=== PATIENT | female | born 1955 | race Caucasian/White ===

== ENCOUNTER → 2020-12-29 15:31 | Outpatient (BNVA) | payer MEDICARE, SELFPAY | PROVIDERS: Referring Provider Nurse Practitioner Family; Visit Provider Orthopaedic Surgery | DX: M25.562 Pain in left knee (principal); M25.561 Pain in right knee; M17.0 Bilateral primary osteoarthritis of knee | CPT/HCPCS: 73560; 73565 ==

== ENCOUNTER 2021-03-09 14:21 | Outpatient (CLI) | payer MEDICARE, SELFPAY ==
--- NOTE | 2021-03-09 14:28 | MM_ITS ---
WS: [id number] BILATERAL DIGITAL SCREENING MAMMOGRAPHY WITH CAD CLINICAL INFORMATION: SCREENING HISTORY: Screening mammogram. No current complaints. COMPARISON: July 24, 2019 TECHNIQUE: Bilateral CC and MLO views. FINDINGS: Scattered fibroglandular densities bilaterally. Vascular calcification. A few punctate calcifications . No suspicious focal mass, asymmetry, calcifications, or architectural distortion. No evidence of ma lignancy. MM/[place] [id number] IMPRESSION: BI-RADS: 2-Benign FOLLOW UP: 1 Year Follow-up Recommend return to annual screening mammography.
== END 2021-03-09 14:22 | disposition home or self-care (01) ==
LOC: RADSHAW 14:26
PROVIDERS: PCP Nurse Practitioner Family; Visit Provider Nurse Practitioner Family
DX: Z12.31 Encounter for screening mammogram for malignant neoplasm of breast (principal)
CPT/HCPCS: 77067

== ENCOUNTER → 2021-03-29 12:18 | Day surgery (SDC) | payer MEDICARE, SELFPAY | PROVIDERS: PCP Nurse Practitioner Family; Visit Provider Orthopaedic Surgery | DX: Z01.818 Encounter for other preprocedural examination (principal); M17.0 Bilateral primary osteoarthritis of knee | CPT/HCPCS: 93005 ==

== ENCOUNTER → 2021-03-31 14:23 | Outpatient (BNVA) | payer MEDICARE, SELFPAY | PROVIDERS: PCP Nurse Practitioner Family; Visit Provider Orthopaedic Surgery | DX: Z20.822 Contact with and (suspected) exposure to COVID-19 (principal); M17.12 Unilateral primary osteoarthritis, left knee | CPT/HCPCS: 87635 ==

== ENCOUNTER 2021-04-05 09:02 | Observation (INO) | payer MEDICARE, MEDICAID, SELFPAY ==
--- NOTE | 2021-03-29 12:18 | ECG_ITS ---
[facility] Test Date: 2021-03-29 Pat Name: Sammy Sherwood Department: Room: Gender: Female Morgue Attendant: : 1955 Requested By: Key Love Order Number: [id number] Juan MD: Evelyn Tenorio M.D. Measurements Intervals [place] Rate: 88 P: 66 IA: 164 QRS: -56 QRSD: 141 T: 99 QT: 400 QTc: 485 Interpretive Statements SINUS RHYTHM LEFT ATRIAL ENLARGEMENT [-0.15mV P-WAVE IN V1/V2] LEFT AXIS DEVIATION [QRS AXIS < -30] LEFT BUNDLE BRANCH BLOCK [120+ ms QRS DURATION, 80+ ms Q/S IN V1/V2, 85+ ms R IN I/aVL/V5/V6] Compared to ECG 05/03/2019 14:24:40 Left-axis deviation now present Sinus tachycardia no longer present Indeterminate axis no longer present Electronically Signed On 03-30-2021 0:08:43 CDT by Evelyn Tenoroi M.D. [id number]
--- NOTE | 2021-03-29 13:19 | ANES.PREANE2 ---
Pre-Anesthetic Assessment Pre-Anesthetic Assessment: Height/Weight: Height 1.47 m Weight 72.575 kg Preop Diagnosis: Osteoarthritis left knee Proposed Procedure: Operation Date: 04/05/21 07:00 Proposed Procedures p Left Total Knee Arthroplasty 54535 M17.0(Left) - Serge Bettencourt MD Familial anesthetic complications: none Social: Social History: No alcohol and No tobacco Exam: Pre-Anes Outpt Exam: alert, oriented x 3, clear to auscultation bilaterally and regular rate & rhythm Airway: Cervical ROM: WNL MP: 2 Dentition: Other (missing) Hepatic: Comments: fatty liver GI: GI: GERD Metabolic: Metabolic: Hyperlipidemia Anesthetic Plan: ASA status: 2 Anesthesia: MAC and Regional (specify below) Other: spinal Risk of > 500 ml blood loss (7ml/kg in children): No PFSH Anesthesia PFSH: Social History Smoking and tobacco status: never smoked Alcohol intake: never Data Anesthesia Cardiac Studies: No Data to Display
[2021-03-29 14:03] LABS: Basophils % 0.6 %; Eosinophils # 0.2 10^3/uL (0.0-0.8); Eosinophils % 2.2 %; Hematocrit 43.8 % (37.0-47.0); Hemoglobin 14.1 g/dL (11.5-15.3); Lymphocytes # 2.6 10^3/uL (0.8-4.8); Mean Corpuscular HGB Conc 32.2 g/dL (30.0-36.0); Mean Corpuscular Hemoglobin 29.7 pg (28.0-34.0); Mean Corpuscular Volume 92.2 fl (81-99); Mean Platelet Volume 10.2 fL (7.4-10.4); Monocytes % 13.2 %; Neutrophils # 3.46 10^3/uL (1.8-7.7); Neutrophils % 47.9 %; Nucleated Red Blood Cells % 0 %; Platelet Count 218 10^3/cmm (130-400); Red Blood Count 4.75 10^6/uL (4.1-5.3); Red Cell Distribution Width 13.4 % (12.1-15.1); White Blood Count 7.2 10^3/uL (4.0-10.0)
[2021-03-29 14:20] LABS: Alanine Aminotransferase 25 U/L (0-33); Albumin Level 4.1 g/dL (3.5-5.2); Alkaline Phosphatase 72 IU/L (35-105); Anion Gap 12.9 (5-19); Aspartate Amino Transferase 25 U/L (0-32); Blood Urea Nitrogen 15 mg/dL (8-23); Carbon Dioxide 24 mmol/L (22-29); Chloride 106 mmol/L (98-107); Creatinine Clr Calc Pharmacy 79.2529; Globulin 3.1 g/dL (1.3-4.6); Glomerular Filtration Rate 123.4 mL/min (90-130); Glucose 96 mg/dL (65-115); Osmolality Calculated 289 mOsm/kg (285-295); Potassium 3.9 mmol/L (3.5-5.1); Sodium 139 mmol/L (136-145); Total Bilirubin 0.2 mg/dL (0.15-1.2); Total Protein 7.2 g/dL (6.6-8.7)
[2021-04-05] VITALS (19 sets, daily range): BP systolic 97–131; BP diastolic 54–81; PULSE 80–101; RESP 14–22; TEMP 35.8–36.7; O2SAT 95–99; BMI 36.2
[2021-04-05] MEDS: CELEcoxib 200 mg Capsule 400 MG PO (06:08)
[2021-04-05] MEDS: oxyCODONE 20 mg ER (12 HR) Tablet PO (06:09)
[2021-04-05] MEDS: gabapentin 300 mg Capsule PO ×2 (06:09→18:15)
[2021-04-05] MEDS: acetaminophen 500 mg Tablet 1000 MG PO ×3 (06:09→22:33)
[2021-04-05] MEDS: sodium chloride 0.9% 1,000 ML 30 ML IV (06:10)
--- NOTE | 2021-04-05 06:52 | P.ANESUD_ITS ---
Pre-Anesthetic Update Pre-Anesthetic Assessment: Date of Surgery/Procedure: 04/05/21 Preop Monica gnosis: Osteoarthritis left knee Proposed Procedure: Operation Date: 04/05/21 07:00 Proposed Procedures p Left Total Knee Arthroplasty 88948 M17.0(Left) - Serge Bettencourt MD Any changes to Pre-Anesthetic Assessment?: No Last Intake: Intake Last Liquid Date 04/04/21 Last Liquid Time 22:00 Last Solid Date 04/04/21 Last Solid Time 19:00 Vitals: Temperature 97.2 F L 04/05/21 05:54 Temperature Source Temporal Artery S can 04/05/21 05:54 Pulse Rate 101 H 04/05/21 05:54 Respiratory Rate 16 04/05/21 06:09 Respiratory Effort 04/05/21 06:09 Respiratory Depth Normal 04/05/21 06:09 Respiratory Patter n 04/05/21 06:09 Blood Pressure 117/75 04/05/21 05:54 Blood Pressure Monika n 89 04/05/21 05:54 Pulse Oximetry 97 04/05/21 06:09 Oxygen Delivery Me thod 04/05/21 05:54 Exam: Pre-Anes Outpt Exam: alert, oriented x 3, clear to auscultation bilaterally and regular rate & rhythm Other Pertinent Information: Other Pertinent Information: SAB and adductor blk Cardiac Studies: No Data to Display
--- NOTE | 2021-04-05 07:04 | P.HP_ITS ---
Same Day Surgery H&P Indication for Procedure/HPI DATE OF PROCEDURE: April 05, 2021 CHIEF COMPLAINT/INDICATIONFOR SURGICAL PROCEDURE: Left knee pain secondary to osteoarthritis. Here for total knee arthroplasty PREOP DIAGNOSIS: Osteoarthritis left knee PLANNED PROCEDRUE: Operation Date: 04/05/21 07:00 Proposed Procedures p Left Total Knee Arthroplasty 67355 M17.0(Left) - Serge Bettencourt MD Medications/Allergies* Home Medications Medication Instructions Recorded Confirmed Type lutein 20 mg capsule 20 mg PO DAILY 12/29/20 04/05/21 History omeprazole 20 mg capsule,delayed 20 mg PO DAILY 12/29/20 04/05/21 History release rosuvastatin 10 mg tablet 10 mg PO DAILY 12/29/20 04/05/21 History gabapentin 100 mg PO DAILY 03/29/21 04/05/21 History Allergies/Adverse Reactions Allergy/AdvReac Type Severity Reaction Status Date / Time No Known Allergies Allergy Verified 03/29/21 12:30 Current Medications: Generic Name Dose Route Start Last Admin Trade Name Freq PRN Reason Stop Dose Admin Sodium Chloride 1,000 mls @ 30 mls/hr 04/05/21 05:45 04/05/21 06:10 Sodium Chloride 0.9% IV 04/06/21 05:44 30 mls/hr .Q24H ASUNCION Administration Pertinent History/Comorbid Conditions* Social History Smoking and tobacco status: never smoked Alcohol intake: never Pertinent Exam Findings alert, oriented x 3, clear to auscultation bilaterally and regular rate & rhythm Recommendations Surgery/Procedure today Coding Level of Care Code Acute 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
--- NOTE | 2021-04-05 07:31 | ANES.PROC ---
Anesthesia Procedures Procedure/Date: 04/05/21 Nerve Block ^: Nerve Block 1: Main Anesthesia: spinal anesthesia block Time Out Performed: Yes Consent: requested by attending/covering physician, from patient, risks and benefits reviewed and patient agrees to proceed Nerve block location: adductor canal (left) Anesthesia monitors applied: pulse oximetry, EKG, BP cuff and oxygen Nerve block position: supine Anesthetic Used: ropivicaine 0.5% Amount of anesthesia used (mL): 20 Ultrasound used to: recognize landmarks Nerve Stimulator Used?: No Interscalene/Femoral BLK: 4 stimuplex 21 g needle used for position and inplane approach and visualize local anesthetic spread Injection: neg aspiration of heme Patient Tolerated Procedure: well Complications: none
[2021-04-05] MEDS: EPINEPHrine 1 mg/mL INJ XX (07:56)
[2021-04-05] MEDS: ketorolac 30 mg/mL INJ IM (07:56)
[2021-04-05] MEDS: tranexamic acid 1,000 mg/10mL SDV 1000 MG IRRIGATION (07:57)
--- NOTE | 2021-04-05 09:05 | PM.OP ---
Operative Report Date of procedure: April 05, 2021 Pre-op Diagnosis: Osteoarthritis left knee Post-op diagnosis: same Post-op Findings: Severe degenerative changes left knee Procedure Done: Left total knee arthroplasty Pathology: none sent Surgeon: Serge Bettencourt Anesthesia: Nerve Block (Spinal, adductor canal block) Estimated blood loss (mL): 75 Complications: None Findings: The patient had severe eburnated bone over the medial femoral condyle, medial tibial plateau, patella and throat Condition: stable Disposition: PACU Procedure: The patient was taken to the operating room. Patient was given 1 g of tranexamic acid . The above anesthesia provided by the anesthesia service. A timeout was performed. The patient was prepped and draped in the usual fashion with the lower extremity exposed. A anterior incision was made, midline, from a point proximal to the patella to the distal tibial tubercle. The knee was entered through a medial parapatellar approach. The patella could be displaced laterally and the knee flexed. The patellar fat pad was resected to provide better visibility. Retractors were placed medially and laterally adjacent to the tibial plateau. The femoral canal was drilled in line with the longitudinal axis of the femur. Intramedullary femoral guide for used to make a distal femoral cut in 5 degrees of valgus, resecting 8 mm from the more prominent condyle. Next the extra medullary tibial guide was placed in alignment with the longitudinal axis of the tibia. The cutting guides were set to remove just over 9 mm from the high tibial plateau. The proximal tibia was then cut. The femoral measuring guide was then placed over the distal femur. Rotation was verified checking the relationship of the guide to the condyle and the trochlear groove. The femur was measured and cut for the desired femoral component. The desired tibial baseplate was then chosen. A trial reduction with the femur tibial baseplate and polyethylene was done, assuring that the knee was stable throughout full motion. Ligament balancing involved in release.The tibia was prepared for the tibial baseplate. Patellar thickness was then measured. The patella was cut removing articular cartilage and prepared for appropriate size patellar button. surfaces were cleaned with a gentamicin/tranexamic acid solution. The femur tibia and patella were then press-fit into place. The posterior capsule and collateral ligaments were then injected with a solution of 100 mL of 0.2% ropivacaine, 1 mL of a 1:1000 epinephrine solution, 30 mg of Toradol and 1 g TXA solution. Final polyethylene component was then snapped into place into the tibia. The tourniquet was deflated. The extensor retinaculum was closed with a running 1 Stratafix.. The subcutaneous tissues were closed with 2-0 Vicryl and the skin was closed with a running 3-0 Stratafix. The wound was covered with a Dermabond Prinio dressing. It was covered with 4xrs and a compressive Tubigauae was applied. The patient was taken to recovery room in stable condition. [place] total knee arthroplasty components were used includin) Size 3 triathalon cruciate retaining femoral component 2) Size 3 Tritanium tibial component 3) 29 mm /9 mm thickness Tritanium asymetric patella 4) Size 3/13 mm thickness CR tibial bearing insert
--- NOTE | 2021-04-05 09:11 | XR_ITS ---
WS: [id number] Exam: XR knee LT 1-2V [id number] Date/Time of Exam: 04/05/2021 9:11 AM Reason For Exam: Left Total knee arthroplasty A total knee prosthesis has been placed and appears to be in satisfactory alignment. Postoperative ch anges in the adjacent soft tissues. An implant is seen along the articulating surface of the patella. XR/XR knee LT 1-2V [id number] IMPRESSION: 1. Total joint replacement appearing to be in satisfactory position.
[2021-04-05] MEDS: metoclopramide 5 mg/mL SDV 2 mL 10 MG IV (11:11)
[2021-04-05] MEDS: sodium chloride 0.9% 1,000 ML 100 ML IV ×2 (11:22→22:36)
[2021-04-05] MEDS: ondansetron 2 mg/ML SDV 2 mL 4 MG IVP (14:47)
[2021-04-05] MEDS: oxyCODONE 5 mg IR Tab/Cap PO (14:48)
--- NOTE | 2021-04-05 15:36 | ANE.PACU2 ---
Inpatient post-anesthesia follow up: Airway intact: Yes Vital signs: Temperature 97.3 F Pulse Rate 85 Respiratory Rate 17 Blood Pressure 130/79 Pulse Oximetry 96 Oxygen Delivery Me thod Room Air Oxygen Flow Rate Fraction of Inspir ed Oxygen Hydration adequate: Yes Nausea and vomiting: No Pain level: 2 Mental status: Baseline
[2021-04-05] MEDS: sennosides-docusate Tablet 2 TAB PO (18:15)
[2021-04-05] MEDS: CELEcoxib 200 mg Capsule PO (18:16)
[2021-04-05] MEDS: metoclopramide 5 mg/mL SDV 2 mL 10 MG IVP (19:08)
[2021-04-06] VITALS (7 sets, daily range): BP systolic 112–135; BP diastolic 67–82; PULSE 102–105; RESP 16–18; TEMP 36.7–36.8; O2SAT 93–99
[2021-04-06] MEDS: oxyCODONE 5 mg IR Tab/Cap PO ×3 (01:52→17:36)
[2021-04-06] MEDS: acetaminophen 500 mg Tablet 1000 MG PO ×2 (05:52→13:17)
[2021-04-06] MEDS: CELEcoxib 200 mg Capsule PO ×2 (05:54→17:37)
--- NOTE | 2021-04-06 08:15 | PM.PN ---
Subjective Subjective: Interval history: Complaineds of shortness of breath last night, relieved with oxycodone. Complains of increased shortness of breath this morning. Vomiting last night Vitals/I&O/Wt Last Vital Signs Temp 98.1 F 04/06/21 04:10 Pulse 105 H 04/06/21 04:10 Resp 18 04/06/21 06:20 BP 112/67 04/06/21 04:10 Pulse Ox 93 04/06/21 04:10 04/05/21 04/06/21 04/06/21 22:59 06:59 14:59 Intake Total 1540 / 2950 360 / 3310 Output Total 300 / 400 350 / 750 Balance 1240 / 2550 10 / 2560 Weight last 48 hrs Weight 179 lb 8 oz Physical Exam Narrative: EXAM NARRATIVE: Left knee dressing clean and dry Data : 03/29/21 13:46 03/29/21 13:46 A&P Assessment and plan (1) Osteoarthritis of left knee: Status: Acute (2) Status post left knee replacement: Continue to mobilize with therapy. Status: Acute (3) Hypoxia: Will obtain portable chest x-ray. Suspect atelectasis. 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
[2021-04-06 08:18] LABS: Hemoglobin 11.1 g/dL (11.5-15.3)
--- NOTE | 2021-04-06 08:18 | XR_ITS ---
WS: [id number] Exam: XR chest 1V portable [id number] Date/Time of Exam: 04/06/2021 8:27 AM Reason For Exam: Shortness of breath Comparison 05/03/2019. The heart is enlarged. The lungs are fully expanded and clear. No pleural effusions. Regional bony el ements are intact. XR/XR chest 1V portable [id number] IMPRESSION: 1. Cardiac enlargement. 2. No acute process noted.
--- NOTE | 2021-04-06 09:07 | PC.CHAP ---
Pastoral Care Encounter/Spiritual Assessment Type of Contact [] Declined behavioral health specialist visit [] Patient/Family/Request visit [] Outpatient visit [] Follow-up visit [] Physician referral [] Code/Alert [x] Routine visit [] Staff referral [] Actively dying [] Patient sleeping [] Family support [] [] Out of room [] Palliative care [] [] Receiving care in room [] Pre-surgical visit [] Trauma [] Long length of stay [] ICU visit [] Other: Relational/Emotional Strength [x] Patient feels connected with others/family/visitors/staff [] Distress [] Loneliness/isolation [] Abandonment Spirituality of Patient [x] Person of Nathaly [] Attends Judaism of their Nathaly [] Believes in Prayer [] Reads Bible or Gnosticist materials [] There are Spiritual issues to be addressed Interpretive Program Coordinator Interventions [x] Prayer [x] Active listening [x] Non-anxious presence [] Spiritual/emotional support [] Crisis/trauma care [] Spiritual counseling [] Bereavement support [] Provided bereavement packet [] Provided Bible/devotional materials [] Provided toy/stuffed animal, coloring book to patient or family member [] Provided Communion [] Anointing/[place] [] Salvation [x] Completed spiritual assessment [] Other: Impact on Illness or Injury [] Angry [] Fearful [] Anxious [] Often cries [] Exhaustion [] Unable to work [] Unable to attend sikhism [] Unable to walk/stand [] Unable to read [] Unable to drive [] Unable to eat/drink [] Unable to sleep [] Unable to be with family [] Patient intubated [] Other: Summary Time spent with patient 15 min
[2021-04-06] MEDS: sennosides-docusate Tablet 2 TAB PO ×2 (09:23→17:36)
[2021-04-06] MEDS: aspirin 325 mg EC Tablet PO (09:23)
[2021-04-06] MEDS: atorvastatin 40 mg Tablet PO (09:24)
[2021-04-06] MEDS: gabapentin 300 mg Capsule PO ×2 (09:24→17:37)
[2021-04-06] MEDS: pantoprazole DR 40 mg Tablet PO (09:24)
[2021-04-06] MEDS: LORazepam 0.5 mg Tablet PO (17:36)
--- NOTE | 2021-04-07 14:03 | PM.DCS ---
Discharge Providers Date of Admission: 04/05/21 09:02 Date of Discharge: April 06, 2021 Attending Provider at Admission: Serge Bettencourt MD Attending Provider at Discharge: Serge Bettencourt MD Primary Care Provider: ESTHER Blakely Diagnoses at Discharge Discharge Diagnosis (1) Osteoarthritis of left knee: Status: Resolved (2) Status post left knee replacement: Status: Acute (3) Hypoxia: Status: Resolved Reason for Visit Reason for Visit: Left Total Knee Arthroplasty Hospital Course Hospital Course The patient tolerated surgery well. They remained hemodynamically stable. They was begun on aspirin and sequential compression dressing for DVT prophylaxis. The patient was mobilized with therapy beginning the day of surgery and by the first postoperative day independent with the walker. As the pain was adequately controlled and they were fully mobile they were discharged home. She had one episode of anxiety with subjective complaints of hypoxia. A chest x-ray was unremarkable and her symptoms improved. Physical Exam Narrative: EXAM NARRATIVE: On the day of discharge his knee incision was clean. They had no drainage. There is minimal swelling in the thigh and knee and the calf. No distal neurovascular deficits were noted Discharge Data Data Completed and Pending: Completed Studies During Hospitalization Category Date Time Status XR chest 1V mariella ble [id number] Routine Exams 04/06/21 08:18 Completed XR knee LT 1-2V 7 3560 Routine Exams 04/05/21 09:11 Completed Vitals: Last Vital Signs Temp 98.1 F 04/06/21 12:00 Pulse 103 H 04/06/21 12:00 Resp 18 04/06/21 18:04 BP 115/73 04/06/21 12:00 Pulse Ox 99 04/06/21 12:00 Discharge Plan Discharge Patient Disposition: Home Condition: Stable Prescriptions: New lorazepam 0.5 mg Tablet 0.5 mg PO Q4H PRN (Reason: Anxiety) 7 Days Qty: 10 RF: 0 aspirin 325 mg Tablet,Delayed Release (Dr/Ec) 325 mg PO DAILY 3 Days RF: 0 gabapentin 300 mg Capsule 300 mg PO BID 7 Days Qty: 14 RF: 0 oxycodone 5 mg Tablet 5 mg PO Q4H PRN (Reason: Moderate Pain) 7 Days Qty: 40 RF: 0 Continued lutein 20 mg capsule 20 mg PO DAILY RF: 0 omeprazole 20 mg capsule,delayed release(DR/EC) 20 mg PO DAILY RF: 0 rosuvastatin 10 mg tablet 10 mg PO DAILY RF: 0 Discontinued gabapentin 100 mg capsule 100 mg PO DAILY RF: 0 Discharge Orders: Discharge Order (Routine); Ordered 04/06/21 Ordered By: Serge Bettencourt Other Ambulatory Orders: DME: [employer] (Order) Location: None Selected Ordered By: Serge Bettencourt Referrals: Serge Bettencourt MD [Physician] - 04/20/21 8:15 am Discharge Diet: Advance as tolerated Discharge Activity: Limit activity as instructed Patient Instructions: Lorazepam (By mouth), Aspirin (By mouth), Gabapentin (By mouth), Celecoxib (By mouth), Oxycodone, Slow Release (By mouth), Opioid Safety Activity Restrictions/Additional Instructions: Okay to shower Keep Tubigauze sleeve in place for swelling. Okay to remove for hygiene. Apply FirstIce up to 20 min/hr for pain and swelling Take Celebrex twice a day for the next 15 days for pain , discontinue other anti-inflammatories Take Neurontin twice a day for 7 days. Take Tylenol 500mg (1-2 tabs) as needed 3 times a day for mild pain take oxycodone for breakthrough pain. Exercises per physical therapy. May weight-bear as tolerated on total knee arthroplasty Discharge Attestations Time Spent in Discharge Care*: other Quality Metrics Clinical Quality Measures During this hospital stay, did patient experience: None Coding Level of Care Code Acute [facility] FW [place] note Diagnoses Osteoarthritis of left knee M17.12 Status post left knee replacement Z96.652 Hypoxia R09.02
== END 2021-04-06 18:04 | disposition home or self-care (01) ==
LOC: MEDSURG 09:03
PROVIDERS: Admitting Provider Orthopaedic Surgery; PCP Nurse Practitioner Family; Visit Provider Orthopaedic Surgery
PROC: (CPT 27447; principal; 2021-04-05 07:00)
DX: M17.12 Unilateral primary osteoarthritis, left knee (principal); R09.02 Hypoxemia; K21.9 Gastro-esophageal reflux disease without esophagitis; E78.5 Hyperlipidemia, unspecified
CPT/HCPCS: 27447; 36415; 64447; 71045; 73560; 76942; 80053; 85018; 85025; 97110; 97116; 97161; 97165; 97530; C1776; G0378; J0171; J0690; J1580; J1885; J2370; J2405; J2704; J2765; J2795; J7030

== ENCOUNTER 2021-04-22 15:21 | Outpatient (CLI) | payer MEDICARE, SELFPAY ==
--- NOTE | 2021-04-22 15:33 | XR_ITS ---
WS: [id number] DEXA (DUAL ENERGY X-RAY ABSORPTIOMETRY) Bone mineral density was performed using a Anexon machine. HISTORY: POSTMENOPAUSAL COMPARISON: None available. Lumbar spine BMD (L1-L4): 0.875 g/cm2 T score: -2.5 Z score: -1.3 Total hip BMD: Left: 0.754 g/cm2. T score: -2.0 Z score: -1.0 Right: 0.904 g/cm2. T score: -0.8 Z score: 0.2 10 year probability of a major osteoporotic fracture is 14%. XR/XR DEXA axial skeleton* 12960 IMPRESSION: OSTEOPOROSIS based upon the WHO classification for females.
== END 2021-04-22 15:22 | disposition home or self-care (01) ==
PROVIDERS: PCP Nurse Practitioner Family; Visit Provider Nurse Practitioner Family
DX: Z78.0 Asymptomatic menopausal state (principal); M81.0 Age-related osteoporosis without current pathological fracture
CPT/HCPCS: 77080

== ENCOUNTER 2021-04-28 06:00 | Outpatient (RCR) | payer MEDICARE, SELFPAY | END 2021-05-13 23:59 | disposition home or self-care (01) | LOC: SPT 06:00 | PROVIDERS: PCP Nurse Practitioner Family; Referring Provider Orthopaedic Surgery; Visit Provider Orthopaedic Surgery | DX: Z47.1 Aftercare following joint replacement surgery (principal); Z96.652 Presence of left artificial knee joint | CPT/HCPCS: 97110; 97161 ==

== ENCOUNTER 2021-05-14 06:00 | Outpatient (RCR) | payer MEDICARE, SELFPAY | END 2021-06-13 23:59 | disposition home or self-care (01) | LOC: SPT 06:00 | PROVIDERS: PCP Nurse Practitioner Family; Referring Provider Orthopaedic Surgery; Visit Provider Orthopaedic Surgery | DX: Z47.1 Aftercare following joint replacement surgery (principal); Z96.652 Presence of left artificial knee joint | CPT/HCPCS: 97110 ==

== ENCOUNTER → 2021-05-18 10:24 | Outpatient (BNVA) | payer MEDICARE, MEDICAID, SELFPAY | PROVIDERS: PCP Nurse Practitioner Family; Visit Provider Orthopaedic Surgery | DX: Z96.652 Presence of left artificial knee joint (principal) | CPT/HCPCS: 73560; 73565 ==

== ENCOUNTER 2021-06-04 19:06 | Inpatient (IN) | payer MEDICARE, MEDICAID, SELFPAY ==
[2021-06-04] VITALS (48 sets, daily range): BP systolic 78–119; BP diastolic 49–71; PULSE 107–120; RESP 14–28; TEMP 36.6; O2SAT 92–98; BMI 33.7; BMI 34.4
--- NOTE | 2021-06-04 19:33 | CTR_ITS ---
PROCEDURE INFORMATION: Exam: CT Abdomen And Pelvis With Contrast Exam date and time: 06/04/2021 7:33 PM Age: 65 years old Clinical indication: Nausea and vomiting; Abdominal pain; Generalized; Prior surgery; Surgery type: Hernia. Gb. ; Patient HX: Abd pain with n/v. ; Additional info: Abd pain, n/v TECHNIQUE: Imaging protocol: Computed tomography of the abdomen and pelvis with contrast. Radiation optimization: All CT scans at this facility use at least one of these dose optimization techniques: automated exposure control; mA and/or kV adjustment per patient size (includes targeted exams where dose is matched to clinical indication); or iterative reconstruction. Contrast material: VISI 320; Contrast volume: 95 ml; Contrast route: INTRAVENOUS (IV); COMPARISON: CT abdomen pelvis wo con [id number] 05/03/2019 12:01 PM RADIATION DOSE METRICS: Total DLP (mGy-cm): 1622.78 FINDINGS: Lungs: Right lower lobe 5.3 mm pulmonary nodule partially visualized, dedicated nonemergent chest CT advised for further evaluation. Heart: Cardiomegaly. Liver: Hepatic steatosis. Gallbladder and bile ducts: Cholecystectomy. Pancreas: Normal. No ductal dilation. Spleen: Normal. No splenomegaly. Adrenal glands: Normal. No mass. Kidneys and ureters: Normal. No hydronephrosis. Stomach and bowel: Prominent fluid throughout the small bowel and colon suggestive of an enterocolitis. Diverticulosis without diverticulitis. Appendix: No evidence of appendicitis. Intraperitoneal space: Unremarkable. No free air. No significant fluid collection. Vasculature: Unremarkable. No abdominal aortic aneurysm. Lymph nodes: Unremarkable. No enlarged lymph nodes. Urinary bladder: Unremarkable as visualized. Reproductive: Unremarkable as visualized. Bones/joints: Unremarkable. No acute fracture. Soft tissues: Unremarkable. CT/CT abdomen pelvis w con* [id number] IMPRESSION: 1. Prominent fluid throughout the small bowel and colon suggestive of an enterocolitis. 2. Right lower lobe 5.3 mm pulmonary nodule partially visualized, dedicated nonemergent chest CT advised for further evaluation. 3. Cardiomegaly. 4. Hepatic steatosis. 5. Cholecystectomy. 6. Diverticulosis without diverticulitis. Radiation Dose CTDIVOL = (mGy): DLP = 1622.78 (mGy-cm)
[2021-06-04] MEDS: metoclopramide 5 mg/mL SDV 2 mL 10 MG IVP (19:43)
[2021-06-04 19:45] LABS: Basophils % 0.3 %; Hematocrit 47.1 % (37.0-47.0); Hemoglobin 14.3 g/dL (11.5-15.3); Lymphocytes # 0.3 10^3/uL (0.8-4.8); Lymphocytes % 2.7 %; Mean Corpuscular HGB Conc 30.4 g/dL (30.0-36.0); Mean Corpuscular Hemoglobin 28.6 pg (28.0-34.0); Mean Corpuscular Volume 94.2 fl (81-99); Mean Platelet Volume 10.2 fL (7.4-10.4); Monocytes # 0.5 10^3/uL (0.2-0.9); Monocytes % 4.6 %; Neutrophils # 10.82 10^3/uL (1.8-7.7); Neutrophils % 92.2 %; Nucleated Red Blood Cells % 0 %; Platelet Count 255 10^3/cmm (130-400); Red Cell Distribution Width 13.8 % (12.1-15.1); White Blood Count 11.7 10^3/uL (4.0-10.0)
--- NOTE | 2021-06-04 19:55 | ED_ITS ---
HPI - Nausea/Vomiting/Diarrhea General: Chief complaint: Nausea/Vomiting/Diarrhea Stated complaint: LETHARGIC/ WEAK/ N/V Time Seen by Provider: 06/04/21 19:20 History of Present Illness: HPI Narrative: 65-year-old female who has had nausea vomiting and diarrhea since last night. Multiple episodes of vomiting today, around 10. Multiple episodes of diarrhea as well. She states it is watery. No blood. No fever. Normal belly pain. She has had a cholecystectomy in the past as well as a ventral hernia repair with mesh years ago. She notes that her granddaughter was sick a few days ago with vomiting. MD elicited complaint: nausea, vomiting and diarrhea Pertinent past history: other Onset (ago): hour(s) Description of vomiting: watery and bilious Description of diarrhea: watery Location of pain: Diffuse (Mild) Pain consistency: other Severity: mild Quality: cramping Exacerbating factors: eating Relieving factors: none Context: sick contacts Associated symtoms: Reports fecal incontinence, anorexia and weakness (Generalized); Denies chest pain, cough, diaphoresis, dysuria, fevers/chills, headache(s) or short of breath Review of Systems Const: Denies: diaphoresis ENMT: Denies: throat pain Card: Denies: chest pain Resp: Denies: dyspnea or productive cough GI: Reports: fecal incontinence : Denies: dysuria Neuro: Denies: headache(s) PFSH ED PFSH: Social History Alcohol intake: never Physical Exam Const: GENERAL APPEARANCE: cooperative, ill appearing and frail appearing ORIENTATION/CONSCIOUSNESS: Yes awake, Yes oriented to person, Yes oriented to place and Yes oriented to time HENMT: COMMON NORMALS: normocephalic HEAD & SCALP: normocephalic Eye: COMMON NORMALS: Equal, round and reactive pupils present and EOMs intact bilaterally PUPIL: Yes Equal, round and reactive pupils present Chest: COMMONS NORMALS: normal inspection of the chest Resp: COMMON NORMALS: normal respiratory effort, No use of accessory muscles and clear to auscultation bilaterally AUSCULTATION: clear to auscultation bilaterally Cardio: COMMON NORMALS: regular rhythm RATE: tachycardic RHYTHM: regular rhythm GI: COMMON NORMALS: Normal to inspection, nondistended, normoactive bowel sounds present and Soft to palpation PALPATION: Yes Soft to palpation and Yes Tenderness to palpation present (GI) (Mild diffuse) Neuro: SENSORIUM/ORIENTATION: Yes oriented to person, Yes oriented to place and Yes oriented to time Course Consultations: Consultation #1: Lidia Time: 22:44 Vital Signs: Vital signs: Vital Signs Temperature 97.9 F 06/04/21 23:14 Pulse Rate 109 H 06/04/21 23:14 Respiratory Rate 20 H 06/04/21 23:14 Blood Pressure 117/55 06/04/21 23:14 Pulse Oximetry 94 06/04/21 23:14 MDM - Nausea/Vomiting/Diarrhea MDM Narrative: Medical decision making narrative: 65yo frail female presenting with vomiting diarrhea and dehydration. She is weak, hypotensive, and significantly tachycardic. She had a bump in her creatinine. Her white blood cell count is 11.7. CT shows an enteritis her bicarbonate level is down to 18. She remains tachycardic despite 2.5 L of fluid infusion here in the ER. She will be observed Lab Data: Labs: Lab Results 06/04/21 06/04/21 06/04/21 19:30 19:30 19:30 WBC 11.7 10^3/uL H 10 ^3/uL (4.0-10.0) RBC 5.00 10^6/uL 10^6 /uL (4.1-5.3) Hgb 14.3 g/dL g/dL (11.5-15.3) Hct 47.1 % H % (37.0-47.0) MCV 94.2 fl fl (81-99) MCH 28.6 pg pg (28.0-34.0) MCHC 30.4 g/dL g/dL (30.0-36.0) RDW 13.8 % % (12.1-15.1) Plt Count 255 10^3/cmm 10^3 /cmm (130-400) MPV 10.2 fL fL (7.4-10.4) Neut % (Auto) 92.2 % % Lymph % (Auto) 2.7 % % [place] % (Auto) 4.6 % % Eos % (Auto) 0.0 % % Baso % (Auto) 0.3 % % Neut # (Auto) 10.82 10^3/uL H 1 0^3/uL (1.8-7.7) Lymph # (Auto) 0.3 10^3/uL L 10^ 3/uL (0.8-4.8) [place] # (Auto) 0.5 10^3/uL 10^3/ uL (0.2-0.9) Eos # (Auto) 0.0 10^3/uL 10^3/ uL (0.0-0.8) Baso # (Auto) 0.0 10^3/uL 10^3/ uL (0.0-0.1) Nucleated RBC % (a uto) 0 % % Nucleated RBCs # 0.0 /100WBC /100W BC Sodium 139 mmol/L mmol/L (136-145) Potassium 4.6 mmol/L mmol/L (3.5-5.1) Chloride 105 mmol/L mmol/L (98-107) Carbon Dioxide 18 mmol/L L mmol/ L (22-29) Anion Gap 20.6 H (5-19) BUN 25 mg/dL H mg/dL (8-23) Creatinine 1.1 mg/dL H mg/dL (0.5-0.9) GFR Calculation 49.7 mL/min L mL/ min (90-130) Glucose 141 mg/dL H mg/dL (65-115) Calculated Osmolal ity 295 mOsm/kg mOsm/ kg (285-295) Lactate 1.9 mmol/L mmol/L (0.5-2.2) Calcium 9.1 mg/dL mg/dL (8.5-10.5) Total Bilirubin 0.4 mg/dL mg/dL (0.15-1.2) AST 22 U/L U/L (0-32) ALT 16 U/L U/L (0-33) Alkaline Phosphata se 75 IU/L IU/L (35-105) C-Reactive Protein 6.6 mg/L H mg/L (0.0-4.9) Total Protein 8.4 g/dL g/dL (6.6-8.7) Albumin 4.6 g/dL g/dL (3.5-5.2) Globulin 3.8 g/dL g/dL (1.3-4.6) Lipase 30 U/L U/L (13-60) Urine Color Urine Appearance Urine pH Ur Specific Gravit y Urine Protein Urine Glucose (UA) Urine Ketones Urine Blood Urine Nitrate Urine Bilirubin Urine Urobilinogen Ur Leukocyte Adrienne ase Urine RBC Urine WBC Ur Squamous Epith Cells Amorphous Sediment Urine Bacteria Hyaline Casts 06/04/21 21:30 WBC RBC Hgb Hct MCV MCH MCHC RDW Plt Count MPV Neut % (Auto) Lymph % (Auto) [place] % (Auto) Eos % (Auto) Baso % (Auto) Neut # (Auto) Lymph # (Auto) [place] # (Auto) Eos # (Auto) Baso # (Auto) Nucleated RBC % (a uto) Nucleated RBCs # Sodium Potassium Chloride Carbon Dioxide Anion Gap BUN Creatinine GFR Calculation Glucose Calculated Osmolal ity Lactate Calcium Total Bilirubin AST ALT Alkaline Phosphata se C-Reactive Protein Total Protein Albumin Globulin Lipase Urine Color Yellow (Yellow) Urine Appearance Clear (CLEAR) Urine pH 6.5 (5-7) Ur Specific Gravit y 1.010 (1.005-1.030) Urine Protein 1+ H (Negative) Urine Glucose (UA) Norm (Normal) Urine Ketones Negative (Negative) Urine Blood 2+ H (Negative) Urine Nitrate Negative (Negative) Urine Bilirubin Neg (Negative) Urine Urobilinogen Norm mg/dL mg/dL (Negative) Ur Leukocyte Adrienne ase Negative (Negative) Urine RBC 0-4 /hpf H /hpf (0-2) Urine WBC 0-4 /hpf H /hpf (0-5) Ur Squamous Epith Cells 25-40 /hpf H /hpf (0-5) Amorphous Sediment Not Reportable Urine Bacteria 1+ /hpf H /hpf (NONE) Hyaline Casts 5-10 /lpf H /lpf Discharge Plan Discharge Patient Disposition: Placed in Observation Admit Provider: Christin Murillo Clinical Impression: Gastroenteritis, Dehydration Coding Level of Care Code ED Fryer Operator for [facility] Fwd Exam Detailed
[2021-06-04 19:56] LABS: Alanine Aminotransferase 16 U/L (0-33); Albumin Level 4.6 g/dL (3.5-5.2); Alkaline Phosphatase 75 IU/L (35-105); Anion Gap 20.6 (5-19); Aspartate Amino Transferase 22 U/L (0-32); Blood Urea Nitrogen 25 mg/dL (8-23); C Reactive Protein 6.6 mg/L (0.0-4.9); Calcium 9.1 mg/dL (8.5-10.5); Carbon Dioxide 18 mmol/L (22-29); Chloride 105 mmol/L (98-107); Globulin 3.8 g/dL (1.3-4.6); Glomerular Filtration Rate 49.7 mL/min (90-130); Glucose 141 mg/dL (65-115); Lipase 30 U/L (13-60); Osmolality Calculated 295 mOsm/kg (285-295); Potassium 4.6 mmol/L (3.5-5.1); Sodium 139 mmol/L (136-145); Total Bilirubin 0.4 mg/dL (0.15-1.2); Total Protein 8.4 g/dL (6.6-8.7)
[2021-06-04 19:57] LABS: Lactate (Lactic Acid level) 1.9 mmol/L (0.5-2.2)
[2021-06-04] MEDS: iodixanol 320 mg/mL 100mL Btl IV (20:13)
[2021-06-04] MEDS: sodium chloride 0.9% 1,000 ML 999 ML IV ×2 (20:16→21:47)
[2021-06-04 22:06] LABS: Add Urine Microscopic? YES; Bilirubin Urine Neg (Negative); Blood Urine 2+ (Negative); Glucose Urine UA Norm (Normal); Ketones Urine Negative (Negative); Leukocyte Esterase Urine Negative (Negative); Nitrate Urine Negative (Negative); Protein Urine 1+ (Negative); Urine Appearance Clear (CLEAR); Urine Color Yellow (Yellow); Urobilinogen Urine Norm (Negative); pH Urine 6.5 (5-7)
[2021-06-04 22:07] LABS: Bacteria Urine 1+ /hpf; RBC Urine 0-4 /hpf (0-2); Squamous Epithelial Cell Urine 25-40 /hpf (0-5); WBC Urine 0-4 /hpf (0-5)
[2021-06-04 22:08] LABS: Add Urine Culture? No
--- NOTE | 2021-06-05 01:57 | PM.HP ---
Providers/Chief Complaint Admitting Physician: Christin Murillo MD Primary Care Provider: ESTHER Blakely Chief Complaint: LETHARGIC/ WEAK/ N/V History of Present Illness Sammy Sherwood is a 65 year old female with chief complaints of multiple episodes of diarrhea, nausea, vomiting that started 2 days ago, unable to keep anything down orally. denies blood or mucus in stool. Denies any fever at home, however after admission here noted to have T-max of 101.3 Fahrenheit. No tenesmus. No past history of similar symptoms. Denies history of consumption of restaurant food, however patient has been consuming raw salads and onions. At home. Denies any history of consuming unpasteurized products including milk or dairy. States her meat is well cooked. Source of water at home as well water. No other sick contacts. CT abdomen shows gastroenteritis Review of Systems General: Reports: 10 or more systems reviewed and unremarkable except in HPI and below Const: Denies: fever(s), chills or body aches Eyes: Denies: change in vision, blurry vision or photophobia ENMT: Reports: hoarseness; Denies: throat pain, enlarged tonsils, odynophagia or nasal congestion Card: Denies: chest pain, palpitations, irregular heart rhythm, edema, swelling of feet/ankles, lightheadedness, pre-syncope, dyspnea on exertion or orthopnea Resp: Denies: dyspnea, productive cough, non-productive cough, wheezing, stridor, pain on inspiration, change in phlegm color, hemoptysis or chest congestion GI: Denies: abdominal pain, nausea, vomiting, hematemesis, coffee ground emesis, dysphagia, heartburn, diarrhea, constipation, GI cramping, change in stool character, hematochezia or melena : Denies: flank pain, difficulty voiding, dysuria, urinary frequency, urinary urgency, urinary hesitancy or hematuria Musc: Denies: neck pain, back pain, extremity pain, joint swelling, joint warmth or deformity Neuro: Denies: headache(s), numbness in extremities, weakness in extremities, sensory changes, difficulty walking, frequent falls, dizziness, vertigo, behavioral changes, Slurred speech present or seizure-like activity Psych: Denies: anxiety, depression, suicidal ideation or homicidal ideation Endo: Denies: polyuria, polydipsia, tired all the time, cold intolerance or hot flashes Jeremias/Lymph: Denies: easy bruising or easy bleeding Medications/Allergies Home Medications Medication Instructions Recorded Confirmed Last Taken Type lutein 20 mg capsule 20 mg PO DAILY 12/29/20 06/04/21 1 Day Ago History ~06/03/21 omeprazole 20 mg capsule,delayed 20 mg PO DAILY 12/29/20 06/04/21 1 Day Ago History release ~06/03/21 rosuvastatin 10 mg tablet 10 mg PO DAILY 12/29/20 06/04/21 1 Day Ago History ~06/03/21 oxycodone 5 mg tablet 5 mg PO Q4H PRN 7 Days #30 tab 04/20/21 06/04/21 1 Day Ago Rx ~06/03/21 alendronate 70 mg tablet 70 mg PO .weekly tab 05/18/21 06/04/21 1 Day Ago History ~06/03/21 Allergies Allergy/AdvReac Type Severity Reaction Status Date / Time No Known Allergies Allergy Verified 06/04/21 19:17 PFSH Acute PFSH: Medical History (Updated 06/05/21 @ 02:02 by Christin Murillo MD) GERD (gastroesophageal reflux disease) Hyperlipidemia Social History Alcohol intake: never Vitals/I&O/Wt Last Vital Signs Temp 97.9 F 06/04/21 23:14 Pulse 109 H 06/04/21 23:14 Resp 20 H 06/04/21 23:14 BP 117/55 06/04/21 23:14 Pulse Ox 94 06/04/21 23:14 06/04/21 06/04/21 06/05/21 14:59 22:59 06:59 Intake Total 1000 / 1000 999 / 1999 Balance 1000 / 1000 1000 / 1999 Weight last 48 hrs Weight 77.224 kg Weight 75.75 kg Physical Exam Narrative: EXAM NARRATIVE: General: Mild distress due to multiple episodes of bowel movement, oriented x3, mildly dehydrated HEENT: PERRLA, pupils bilaterally equal and reactive, pallors not present Chest: Normal vesicular breath sounds, no added sounds, equal good air entry bilaterally CVS: S1-S2 regular, no murmurs, no tachycardia, no gallops, no rubs Abdomen: Soft, nontender, no organomegaly, bowel sounds present Neuro: No focal deficits, no facial deformity, AO x3, power 5/5 in all limbs Data : 06/04/21 19:30 06/04/21 19: Attestation for Other Data: I personally reviewed and interpreted the following: Other data: Laboratory Results WBC 11.7 10^3/uL (4.0-10.0) H 06/04/21 19: RBC 5.00 10^6/uL (4.1-5.3) 06/04/21 19: Hgb 14.3 g/dL (11.5-15.3) 06/04/21 19: Hct 47.1 % (37.0-47.0) H 06/04/21: MCV 94.2 fl (81-99) 06/04/21 19: MCH 28.6 pg (28.0-34.0) 06/04/21: MCHC 30.4 g/dL (30.0-36.0) 06/04/21 19: RDW 13.8 % (12.1-15.1) 06/04/21 19: Plt Count 255 10^3/cmm (130-400) 06/04/21 19: MPV 10.2 fL (7.4-10.4) 06/04/21 19: Neut % (Auto) 92.2 % 06/04/21 19: Lymph % (Auto) 2.7 % 06/04/21: [place] % (Auto) 4.6 % 06/04/21: Eos % (Auto) 0.0 % 06/04/21 19: Baso % (Auto) 0.3 % 06/04/21 19:30 Neut # (Auto) 10.82 10^3/uL (1.8-7.7) H 06/04/21 19: Lymph # (Auto) 0.3 10^3/uL (0.8-4.8) L 06/04/21 19: [place] # (Auto) 0.5 10^3/uL (0.2-0.9) 06/04/21 19: Eos # (Auto) 0.0 10^3/uL (0.0-0.8) 06/04/21 19:30 Baso # (Auto) 0.0 10^3/uL (0.0-0.1) 06/04/21 19: Nucleated RBC % (auto) 0 % 06/04/21 19: Nucleated RBCs # 0.0 /100WBC 06/04/21 19:30 Sodium 139 mmol/L (136-145) 06/04/21 19: Potassium 4.6 mmol/L (3.5-5.1) 06/04/21 19: Chloride 105 mmol/L (98-107) 06/04/21 19: Carbon Dioxide 18 mmol/L (22-29) L 06/04/21: Anion Gap 20.6 (5-19) H 06/04/21: BUN 25 mg/dL (8-23) H 06/04/21: Creatinine 1.1 mg/dL (0.5-0.9) H 06/04/21: GFR Calculation 49.7 mL/min (90-130) L 06/04/21: Glucose 141 mg/dL (65-115) H 06/04/21 19:30 Calculated Osmolality 295 mOsm/kg (285-295) 06/04/21: Lactate 1.9 mmol/L (0.5-2.2) 06/04/21 19: Calcium 9.1 mg/dL (8.5-10.5) 06/04/21: Total Bilirubin 0.4 mg/dL (0.15-1.2) 06/04/21: AST 22 U/L (0-32) 06/04/21 19:30 ALT 16 U/L (0-33) 06/04/21 19:30 Alkaline Phosphatase 75 IU/L (35-105) 06/04/21 19:30 C-Reactive Protein 6.6 mg/L (0.0-4.9) H 06/04/21 19:30 Total Protein 8.4 g/dL (6.6-8.7) 06/04/21 19: Albumin 4.6 g/dL (3.5-5.2) 06/04/21 19: Globulin 3.8 g/dL (1.3-4.6) 06/04/21 19:30 Lipase 30 U/L (13-60) 06/04/21 19:30 Urine Color Yellow (Yellow) 06/04/21 21:30 Urine Appearance Clear (CLEAR) 06/04/21 21:30 Urine pH 6.5 (5-7) 06/04/21 21:30 Ur Specific [place] 1.010 (1.005-1.030) 06/04/21 21:30 Urine Protein 1+ (Negative) H 06/04/21 21:30 Urine Glucose (UA) Norm (Normal) 06/04/21 21:30 Urine Ketones Negative (Negative) 06/04/21 21:30 Urine Blood 2+ (Negative) H 06/04/21 21:30 Urine Nitrate Negative (Negative) 06/04/21 21: Urine Bilirubin Neg (Negative) 06/04/21 21:30 Urine Urobilinogen Norm mg/dL (Negative) 06/04/21 21:30 Ur Leukocyte Esterase Negative (Negative) 06/04/21 21:30 Urine RBC 0-4 /hpf (0-2) H 06/04/21 21:30 Urine WBC 0-4 /hpf (0-5) H 06/04/21 21:30 Ur Squamous Epith Cells 25-40 /hpf (0-5) H 06/04/21 21:30 Amorphous Sediment Not Reportable 06/04/21 21:30 Urine Bacteria 1+ /hpf (NONE) H 06/04/21 21:30 Hyaline Casts 5-10 /lpf H 06/04/21 21:30 Impressions Abdomen/Pelvis CT 06/04/21 19:33 IMPRESSION: 1. Prominent fluid throughout the small bowel and colon suggestive of an enterocolitis. 2. Right lower lobe 5.3 mm pulmonary nodule partially visualized, dedicated nonemergent chest CT advised for further evaluation. 3. Cardiomegaly. 4. Hepatic steatosis. 5. Cholecystectomy. 6. Diverticulosis without diverticulitis. Radiation Dose CTDIVOL = (mGy): DLP = 1622.78 (mGy-cm) A&P Assessment and plan (1) Enterocolitis: May be viral versus bacterial in etiology. Given current dehydration, patient admitted for IV fluids and IV antibiotics. Normal saline at 75 cc an hour Given also that patient has had a fever of 101.3, will start antibiotics with ceftriaxone and Flagyl Check enteric bacterial and parasite panel, C. difficile PCR Clear liquid diet Check blood culture Status: Acute (2) Dehydration: Status: Acute Attestations Medical Necessity Statement*: Anticipate greater than 2 midnight admission for enterocolitis, inability to tolerate any p.o. intake, dehydration, need for IV fluids and antibiotics. Coding Level of Care Code Acute Dowel Pointer for [facility] Fwd Diagnoses Enterocolitis K52.9 Dehydration E86.0
[2021-06-05] MEDS: cefTRIAXone 1,000 MG in sodium chloride 0.9% (plus) 50 ML 100 MG IV (02:32)
[2021-06-05] MEDS: sodium chloride 0.9% 1,000 ML 75 ML IV ×2 (02:32→16:23)
[2021-06-05] MEDS: metroNIDAZOLE IV 500 MG/100 ML PREMIX 100 MG IV ×2 (03:37→10:43)
[2021-06-05 04:00] VITALS: BP 136/76; PULSE 126; RESP 18; TEMP 36.8; O2SAT 93
[2021-06-05 07:39] VITALS: BP 105/69; PULSE 104; RESP 18; TEMP 36.8; O2SAT 91
[2021-06-05] MEDS: pantoprazole DR 40 mg Tablet PO (09:15)
[2021-06-05] MEDS: atorvastatin 40 mg Tablet 20 MG PO (09:15)
--- NOTE | 2021-06-05 10:45 | PM.PN ---
Subjective Subjective: Interval history: Patient is stating that no one is sick at home, Since her admission no recurrence of nausea, vomiting she was tolerating her clear liquid diet, endorsing fatigue and lethargy, abdomen soft nontender She has been started on ceftriaxone and metronidazole Afebrile We will advance her diet today to GI soft Vitals/I&O/Wt Last Vital Signs Temp 98.3 F 06/05/21 07:39 Pulse 104 H 06/05/21 07:39 Resp 18 06/05/21 07:39 BP 105/69 06/05/21 07:39 Pulse Ox 91 06/05/21 07:39 06/04/21 06/05/21 06/05/21 22:59 06:59 14:59 Intake Total 1000 / 1000 1150 / 2150 720 / 720 Balance 1000 / 1000 1150 / 2150 720 / 720 Weight last 48 hrs Weight 77.224 kg Weight 75.75 kg Physical Exam Narrative: EXAM NARRATIVE: Patient was laying in her bed very fatigued lethargic EOMI, PERRLA Nonfocal neuro exam Abdomen soft nontender bowel sound present S1, S2 no murmur No audible stridor or wheezing saturating well on room air No joint swelling Clinically looks slightly dehydrated Data : 06/04/21 19:30 06/04/21 19:30 Micro: Microbiology 06/05/21 05:45 Blood Culture - Preliminary Blood SPECIMEN COLLECTED 06/05/21 05:30 Blood Culture - Preliminary Blood SPECIMEN COLLECTED A&P Assessment and plan (1) Enterocolitis: Status: Acute (2) Gastroenteritis: Status: Acute (3) Dehydration: Status: Acute Additional A&P Information Enterocolitis She has been started on ceftriaxone and metronidazole by the admitting physician, I do suspect viral etiology, will go ahead and discontinue antibiotics She is afebrile, will watch for any worsening of leukocytosis, will check lactic acid, CRP, C. difficile, stool studies Advance her diet to GI soft Abdomen is soft no signs of acute abdomen RICH secondary to dehydration currently normal saline at 75 mill per hour anticipating improvement with IV fluids Full code GI soft diet DVT prophylaxis Lovenox Attestations Medical Necessity Statement*: Continue medical management Time Spent in Patient Care: 16 - 35 minutes Coding Level of Care Code Acute Quarter Inspector for [facility] Fwd Diagnoses Enterocolitis K52.9 Gastroenteritis K52.9 Dehydration E86.0
[2021-06-05] MEDS: enoxaparin 40 mg/0.4 mL Syringe SUBCUT (11:32)
[2021-06-05 11:44] VITALS: BP 114/76; PULSE 115; RESP 20; TEMP 36.9; O2SAT 94
[2021-06-05 16:00] VITALS: BP 108/71; PULSE 116; RESP 20; TEMP 39.3; O2SAT 92
[2021-06-05] MEDS: acetaminophen 325 mg Tablet 650 MG PO (16:18)
[2021-06-05 16:55] VITALS: TEMP 37.3
[2021-06-05 20:00] VITALS: BP 106/64; PULSE 109; RESP 18; TEMP 36.4; O2SAT 96
[2021-06-06] VITALS: BP 101/61; PULSE 114; RESP 20; TEMP 38.2; O2SAT 96
[2021-06-06 03:56] VITALS: BP 110/64; PULSE 106; RESP 20; TEMP 37.4; O2SAT 95
[2021-06-06 05:12] LABS: Basophils % 0.2 %; Hematocrit 34.8 % (37.0-47.0); Hemoglobin 11.2 g/dL (11.5-15.3); Lymphocytes # 1.2 10^3/uL (0.8-4.8); Lymphocytes % 7.1 %; Mean Corpuscular HGB Conc 32.2 g/dL (30.0-36.0); Mean Corpuscular Hemoglobin 29.9 pg (28.0-34.0); Mean Platelet Volume 10.3 fL (7.4-10.4); Monocytes # 1.1 10^3/uL (0.2-0.9); Monocytes % 6.4 %; Neutrophils # 14.33 10^3/uL (1.8-7.7); Neutrophils % 84.9 %; Nucleated Red Blood Cells % 0 %; Platelet Count 163 10^3/cmm (130-400); Red Blood Count 3.74 10^6/uL (4.1-5.3); Red Cell Distribution Width 14.5 % (12.1-15.1); White Blood Count 16.9 10^3/uL (4.0-10.0)
[2021-06-06] MEDS: sodium chloride 0.9% 1,000 ML 75 ML IV ×2 (05:25→17:43)
[2021-06-06 05:34] LABS: Alanine Aminotransferase 16 U/L (0-33); Albumin Level 3.1 g/dL (3.5-5.2); Alkaline Phosphatase 44 IU/L (35-105); Blood Urea Nitrogen 14 mg/dL (8-23); C Reactive Protein 134.3 mg/L (0.0-4.9); Calcium 6.9 mg/dL (8.5-10.5); Carbon Dioxide 15 mmol/L (22-29); Chloride 111 mmol/L (98-107); Globulin 2.6 g/dL (1.3-4.6); Glucose 95 mg/dL (65-115); Osmolality Calculated 286 mOsm/kg (285-295); Sodium 138 mmol/L (136-145); Total Bilirubin 0.2 mg/dL (0.15-1.2); Total Protein 5.7 g/dL (6.6-8.7)
[2021-06-06 05:39] LABS: Procalcitonin 0.21 ng/mL (0-0.5)
[2021-06-06 05:41] LABS: Slide Review Slide Review Perform
[2021-06-06 05:43] LABS: Aspartate Amino Transferase 29 U/L (0-32)
[2021-06-06 08:00] VITALS: BP 100/60; PULSE 102; RESP 15; TEMP 37.1; O2SAT 97
[2021-06-06] MEDS: atorvastatin 40 mg Tablet 20 MG PO (09:22)
[2021-06-06] MEDS: pantoprazole DR 40 mg Tablet PO (09:22)
[2021-06-06] MEDS: potassium chloride oral liq 20 mEq/15 mL UDC 40 MEQ PO (09:22)
[2021-06-06 12:00] VITALS: BP 111/72; PULSE 109; RESP 18; TEMP 36.9; O2SAT 98
--- NOTE | 2021-06-06 12:04 | P.PN_ITS ---
Subjective Subjective: Interval history: Seen and examined this morning. She has had multiple bowel movements and has gone almost 4 times since this morning. She says that is hard to hold her bowel movement but at this point she feels safe the compression devices are taken off her legs she can possibly sit on the toilet. There was also stool seen on the bed and her gown. She says is complet carter watery diarrhea at this point. Denies having a history of C. difficile from prior. She says the nausea has improved but the diarrhea has not. Stool studies are still pending. Vitals/I&O/Wt Last Vital Signs Temp 98.7 F 06/06/21 08:00 Pulse 102 H 06/06/21 08:00 Resp 15 06/06/21 08:00 BP 100/60 06/06/21 08:00 Pulse Ox 97 06/06/21 08:00 06/05/21 06/06/21 06/06/21 22:59 06:59 14:59 Intake Total 1240 / 2285 977.5 / 3262.5 Output Total 801 / 804 Balance 1237 / 2282 176.5 / 2458.5 Weight last 48 hrs Weight 77.224 kg Weight 75.75 kg Physical Exam Narrative: EXAM NARRATIVE: General: Alert oriented x3, patient seen laying in bed appearing comfortable HEENT: Normocephalic, atraumatic, EOMI, Cardio: Regular rate rhythm, normal S1-S2, no murmurs rubs gallops, Respiratory: Good bilateral air entry, no wheezes no rhonchi appreciated GI: Abdomen soft, mildly tender to palpation in all 4 quadrants, not distended, bowel sounds slightly hyperactive. Behavior: Appropriate and cooperative Extremities: no edema, no cyanosis Data : 06/06/21 04:30 06/06/21 04:30 Micro: Microbiology 06/05/21 05:45 Blood Culture - Preliminary Blood NEGATIVE TO DATE 06/05/21 05:30 Blood Culture - Preliminary Blood NEGATIVE TO DATE A&P Assessment and plan (1) Enterocolitis: Status: Acute (2) Gastroenteritis: Status: Acute (3) Dehydration: Status: Acute Additional A&P Information #Enterocolitis possibly viral in etiology at this point. Initially patient did get ceftriaxone and metronidazole at admission but they were discontinued yesterday. Viral etiology is suspected. Stool culture is negative for Shigella, Campylobacter, ova parasites. C. difficile is still pending. Patient has been afebrile but leukocytosis is worsening. I will readd antibiotics at this point and de-escalate later. We will continue her on a GI soft diet as patient is no longer having vomiting. Abdomen is soft no signs of acute abdomen #RICH secondary to dehydration -RICH has resolved. We will continue normal saline at 75 cc/h for now. Full code GI soft diet DVT prophylaxis Lovenox Attestations Medical Necessity Statement*: Still having active diarrhea. Anticipate another 48 hours of hospital stay unless improvement earlier. Coding Level of Care Code Acute Professional Security Officer for [facility] Fwd Diagnoses Enterocolitis K52.9 Gastroenteritis K52.9 Dehydration E86.0
[2021-06-06] MEDS: enoxaparin 40 mg/0.4 mL Syringe SUBCUT (13:02)
[2021-06-06 15:34] VITALS: BP 117/75; PULSE 108; RESP 17; TEMP 36.4; O2SAT 96
[2021-06-06] MEDS: cefTRIAXone 1,000 MG in sodium chloride 0.9% (plus) 50 ML 100 MG IV (15:58)
[2021-06-06] MEDS: metroNIDAZOLE IV 500 MG/100 ML PREMIX 100 MG IV (17:43)
[2021-06-06 20:00] VITALS: BP 113/70; PULSE 109; RESP 18; TEMP 37.3; O2SAT 95
[2021-06-07] VITALS (9 sets, daily range): BP systolic 97–129; BP diastolic 62–84; PULSE 88–127; RESP 16–20; TEMP 36.5–39.5; O2SAT 92–98
[2021-06-07] MEDS: metroNIDAZOLE IV 500 MG/100 ML PREMIX 100 MG IV ×3 (00:24→18:26)
[2021-06-07] MEDS: acetaminophen 325 mg Tablet 650 MG PO ×2 (03:59→20:45)
[2021-06-07 05:23] LABS: Basophils % 0.1 %; Hematocrit 33.3 % (37.0-47.0); Hemoglobin 10.7 g/dL (11.5-15.3); Lymphocytes # 1.5 10^3/uL (0.8-4.8); Lymphocytes % 16.1 %; Mean Corpuscular HGB Conc 32.1 g/dL (30.0-36.0); Mean Corpuscular Hemoglobin 29.3 pg (28.0-34.0); Mean Corpuscular Volume 91.2 fl (81-99); Mean Platelet Volume 10.4 fL (7.4-10.4); Monocytes # 0.6 10^3/uL (0.2-0.9); Monocytes % 6.8 %; Neutrophils # 7.04 10^3/uL (1.8-7.7); Neutrophils % 76.7 %; Nucleated Red Blood Cells % 0 %; Platelet Count 154 10^3/cmm (130-400); Red Blood Count 3.65 10^6/uL (4.1-5.3); Red Cell Distribution Width 14.5 % (12.1-15.1); White Blood Count 9.2 10^3/uL (4.0-10.0)
[2021-06-07 05:58] LABS: Anion Gap 14.8 (5-19); Blood Urea Nitrogen 10 mg/dL (8-23); Calcium 7.4 mg/dL (8.5-10.5); Carbon Dioxide 14 mmol/L (22-29); Chloride 113 mmol/L (98-107); Glucose 88 mg/dL (65-115); Magnesium 1.9 mg/dL (1.7-2.3); Osmolality Calculated 286 mOsm/kg (285-295); Phosphorus 1.3 mg/dL (2.5-4.5); Sodium 139 mmol/L (136-145)
[2021-06-07 06:02] LABS: Potassium 2.8 mmol/L (3.5-5.1)
[2021-06-07] MEDS: lidocaine 1% 5 ML in potassium chloride premix 100 ML 25 ML IV (06:34)
--- NOTE | 2021-06-07 08:08 | P.PN_ITS ---
Subjective Subjective: Interval history: Patient seen and examined this morning she stated that her diarrhea improved. She is also loperamide ordered. Currently on antibiotics. Around this afternoon 12 PM patient developed acute onset shortness of breath along with chest pressure that lasted a few minutes. She was given nitro x2 with not much relief. She stated that she was having a panic/anxiety attack. I also called her son-in-law at that time who endorse that she does have panic attacks at home too and takes lorazepam for those. I did give her Ativan which helped a little bit. EKG was done which showed sinus tachycardia but no ischemic changes. Troponin was ordered D-dimer was ordered. D-dimer came back slightly elevated CTA was done to rule out PE. PE was ruled out but it showed severe left heart enlargement. Stat echo was ordered which showed an EF of 15%. Patient was given Lasix 40 IV and had a urine output of about 2 L. At that point she started to feel better. First troponin 22, second troponin 30. 6-hour troponin is pending. Her son-in-law was updated over the phone as well. Patient is feeling a lot better. Stat cardiology consult was placed we will start the patient. Patient will most likely require an angiogram once she is more euvolemic. I stayed with the patient at bedside for greater than an hour during this entire episode. Vitals/I&O/Wt Last Vital Signs Temp 98.1 F 06/07/21 07:41 Pulse 108 H 06/07/21 07:41 Resp 16 06/07/21 07:41 BP 118/72 06/07/21 07:41 Pulse Ox 94 06/07/21 07:41 06/06/21 06/07/21 06/07/21 22:59 06:59 14:59 Intake Total 1312.5 / 1312.5 100 / 1412.5 Output Total 4 / 5 Balance 1311.5 / 1311.5 96 / 1407.5 Physical Exam Narrative: EXAM NARRATIVE: this physical exam is from venereal disease investigator when she was seen. General: Alert oriented x3, patient seen laying in bed appearing comfortable HEENT: Normocephalic, atraumatic, EOMI, Cardio: Regular rate rhythm, normal S1-S2, no murmurs rubs gallops, Respiratory: Good bilateral air entry, clear to auscultation bilaterally. GI: Abdomen soft, nontender to palpation today., not distended, bowel sounds slightly hyperactive. Behavior: Appropriate and cooperative Extremities: no edema, no cyanosis Physical when she was reseen around noon -Lungs bilaterally have crackles at bases, abdomen soft, appears in acute distress hyperventilating and is in sinus tachycardia. Blood pressure also elevated. Data : 06/07/21 04:55 06/07/21 12:27 Micro: Microbiology 06/05/21 13:50 Enteric Pathogens (PCR) - Final Stool Routine Collection Parasite Antigen Panel - Final C.difficile Toxin B Gene (PCR) - Final 06/05/21 05:45 Blood Culture - Preliminary Blood NEGATIVE TO DATE 06/05/21 05:30 Blood Culture - Preliminary Blood NEGATIVE TO DATE A&P Assessment and plan (1) Enterocolitis: Status: Acute (2) Gastroenteritis: Status: Acute (3) Dehydration: Status: Acute Additional A&P Information #Enterocolitis possibly viral in etiology at this point. Initially patient did get ceftriaxone and metronidazole at admission but they were discontinued yesterday. Viral etiology is suspected. Stool culture is negative for Shigella, Campylobacter, ova parasites. C. difficile negative Patient has been afebrile but leukocytosis is worsening. We will continue antibiotics for now. We will place patient on brat diet. Abdomen is soft no signs of acute abdomen -Started patient on loperamide. #Flash pulmonary edema secondary to new onset systolic heart failure -Stat cardiology consult was ordered. Patient was given IV Lasix 40x1. Urine output 2 L. Patient symptoms resolved. Nitro did not really take away the chest pressure. We gave her a GI cocktail which improved her chest pressure and Ativan made it better as well. EKG showed sinus tachycardia. Repeat EKG again showed sinus tachycardia. CTA ruled out PE. Stat limited echo ordered showed EF of 15%. ?We will put her on Lasix 40 IV twice daily for now. We will diurese the patient and at that point she will be a candidate for angiogram. We will start her on aspirin, atorvastatin, beta-beto. ?This most likely is a chronic heart failure that the patient had and it does not seem like an acute event that triggered it. Patient did tell the transformation specialist that patient was on Lasix in the past as well. She has not seen a transformation specialist recently ?Updated daughter at bedside as well in the evening today. -Have stopped IV fluids. Will folllow 6 hour troponin #RICH secondary to dehydration -RICH has resolved. Stop IV fluids. Full code GI soft diet DVT prophylaxis Lovenox Attestations Medical Necessity Statement*: requires > 72 hour in hospital stay Time Spent in Patient Care: Greater than 35 minutes (>than 50% of time spent in counselling and/or direct pt care on unit) . Patient had an acute event today with flash pulmonary edema. I spent almost 1-1/2 hours with this patient at bedside today. Coding Level of Care Code Acute Buying Agent for Chg Fwd Diagnoses Enterocolitis K52.9 Gastroenteritis K52.9 Dehydration E86.0
[2021-06-07] MEDS: pantoprazole DR 40 mg Tablet PO (08:48)
[2021-06-07] MEDS: atorvastatin 40 mg Tablet 20 MG PO (08:48)
[2021-06-07] MEDS: phosphorus 250 mg Tablet PO ×2 (08:48→18:26)
[2021-06-07] MEDS: lactated ringers 1,000 ML 100 ML IV (08:50)
[2021-06-07] MEDS: potassium chloride oral liq 20 mEq/15 mL UDC 40 MEQ PO (08:50)
--- NOTE | 2021-06-07 09:43 | PC.CHAP ---
Pastoral Care Encounter/Spiritual Assessment Type of Contact [] Declined agriculture extension specialist visit [] Patient/Family/Request visit [] Outpatient visit [] Follow-up visit [] Physician referral [] Code/Alert [x] Routine visit [] Staff referral [] Actively dying [] Patient sleeping [] Family support [] [] Out of room [] Palliative care [] [] Receiving care in room [] Pre-surgical visit [] Trauma [] Long length of stay [] ICU visit [] Other: Relational/Emotional Strength [x] Patient feels connected with others/family/visitors/staff [] Distress [] Loneliness/isolation [] Abandonment Spirituality of Patient xx Person of Nathaly [x] Attends Moravian of their Nathaly [x] Believes in Prayer [] Reads Bible or Restorationist materials [] There are Spiritual issues to be addressed Financial Systems Analyst Interventions [x] Prayer [x] Active listening x[] Non-anxious presence [] Spiritual/emotional support [] Crisis/trauma care [] Spiritual counseling [] Bereavement support [] Provided bereavement packet [] Provided Bible/devotional materials [] Provided toy/stuffed animal, coloring book to patient or family member [] Provided Communion [] Anointing/[place] [] Salvation [x] Completed spiritual assessment [] Other: Impact on Illness or Injury [] Angry [] Fearful [] Anxious [] Often cries [] Exhaustion [] Unable to work [] Unable to attend catholic [] Unable to walk/stand [] Unable to read [] Unable to drive [] Unable to eat/drink [] Unable to sleep [] Unable to be with family [] Patient intubated [] Other: Summary Time spent with patient `15 min
[2021-06-07] MEDS: enoxaparin 40 mg/0.4 mL Syringe SUBCUT (10:02)
[2021-06-07] MEDS: LORazepam 0.5 mg Tablet PO (10:02)
[2021-06-07] MEDS: loperamide 2 mg Capsule PO (10:02)
[2021-06-07 10:07] LABS: Base Excess VBG -8.7 mmol/L (-3.0-3.0); Blood Gas Operator Identificat AMH; Blood Gas Sample Site Not specified; Blood Gas Sample Type Venous; HCO3 VBG 15.2 mmol/L (24-28); PCO2 VBG 26.6 mmHg (41-51); PO2 VBG 49.6 mmHg (25-40); Venous Blood Gas Hematocrit 37.3 % (37-47); pH VBG 7.37 (7.32-7.42)
[2021-06-07 10:14] LABS: Lactic Sepsis W/Reflex 1.9 mmol/L (0.5-2.2)
--- NOTE | 2021-06-07 11:37 | ECG_ITS ---
[facility] Test Date: 2021-06-07 Pat Name: Sammy Sherwood Department: Room: 255 Gender: Female Community Development Specialist: : 1955 Requested By: Katy Rea Order Number: [id number] Juan MD: Evelyn Tenorio M.D. Measurements Intervals [place] Rate: 120 P: 70 [place]: 161 QRS: -25 QRSD: 141 T: 50 QT: 345 QTc: 487 Interpretive Statements SINUS TACHYCARDIA BORDERLINE LEFT AXIS DEVIATION [QRS AXIS < -20] INTRAVENTRICULAR CONDUCTION DELAY [130+ ms QRS DURATION] Compared to ECG 03/29/2021 13:04:44 Intraventricular conduction delay now present Sinus rhythm no longer present Atrial abnormality no longer present Left bundle-branch block no longer present Electronically Signed On 06-07-2021 23:54:42 CDT by Evelyn Tenorio M.D. [id number]
--- NOTE | 2021-06-07 11:47 | XR_ITS ---
WS: [id number] Exam: XR chest 1V portable [id number] Date/Time of Exam: 06/07/2021 11:59 AM Reason For Exam: Chest Pain, SOB Acute onset Comparison 04/06/2021. Diffuse interstitial infiltrates are noted. This could represent pneumonia or interstitial pulmonary edema. The heart is not enlarged for AP portable technique. Fluid in the minor fissure on the right. No pleural effusions or pneumothorax. The mediastinum is not widened. Regional bony elements are inta ct. XR/XR chest 1V portable [id number] IMPRESSION: 1. Diffuse interstitial infiltrates noted throughout both lungs suggesting eith er interstitial pneumonia or pulmonary edema.
[2021-06-07] MEDS: nitroglycerin 0.4 mg sublingual Tablet SUBLINGUAL (12:08)
[2021-06-07] MEDS: lidocaine 2% viscous 15 ML, aluminum-mag hydrox-simethicon 30 ML, sucralfate oral liq 1 GM PO (12:54)
[2021-06-07] MEDS: LORazepam 2 mg/mL INJ 1 mL 1 MG IVP (12:56)
[2021-06-07 13:00] LABS: D Dimer 0.78 ug/mIFEU (0-0.59)
[2021-06-07 13:07] LABS: Anion Gap 15.6 (5-19); Blood Urea Nitrogen 9 mg/dL (8-23); Calcium 7.7 mg/dL (8.5-10.5); Carbon Dioxide 15 mmol/L (22-29); Chloride 114 mmol/L (98-107); Glomerular Filtration Rate 123.4 mL/min (90-130); Glucose 108 mg/dL (65-115); Osmolality Calculated 291 mOsm/kg (285-295); Potassium 3.6 mmol/L (3.5-5.1); Sodium 141 mmol/L (136-145)
[2021-06-07 13:08] LABS: Troponin T (5th) Once 22 ng/L (0-10)
--- NOTE | 2021-06-07 14:14 | CT_ITS ---
WS: [id number] CT CHEST ANGIOGRAPHY WITH REFORMATS HISTORY: Rule out PE. TECHNIQUE: Contiguous axial images are obtained through the chest during arterial injection of intrav enous contrast. Images are reconstructed to evaluate the pulmonary arteries. MIP imaging also reviewe d. All CT scans at [facility] use at least one of these dose optimization techniques: automat ed exposure control; mA and/or kV adjustment per patient size (includes targeted exams where dose is matched to clinical indication); or iterative reconstruction. CONTRAST: Omnipaque 300; 95 mL IV. DLP: 925.29 mGy.cm COMPARISON: None available. Good opacification of the pulmonary arteries centrally. There is no pulmonary embolism identified. Th e segmental and subsegmental branches are surrounded by pulmonary opacifications. Pulmonary artery si ze is slightly enlarged. Moderate atherosclerosis aorta. No aneurysm. Significant enlargement of the LEFT heart chambers. No pericardial effusion. Small bilateral pleural effusions and bilateral opacifications and groundglass attenuation from pulmo nary edema. No dense consolidation or mass. Study is suboptimal by breathing motion artifact. Mildly reactive mediastinal and hilar lymphoid tissue. Tricuspid regurgitation into hepatic veins. Liver does appear slightly enlarged. The entire liver is not included. No adrenal mass. Prior cholecystectomy. CT/CT angio chest PE protcl [id number] IMPRESSION: 1. No pulmonary embolism. 2. Severe LEFT heart enlargement. 3. Pulmonary edema and small bilateral pleural effusions. 4. Prior cholecystectomy. 5. Tricuspid regurgitation into hepatic veins.
[2021-06-07] MEDS: FUROsemide 10 mg/mL SDV 4mL 40 MG IVP ×2 (14:41→18:25)
[2021-06-07] MEDS: ipratropium-albuterol 3 mL Neb INHALATION (15:23)
--- NOTE | 2021-06-07 15:26 | ECG_ITS ---
[facility] Test Date: 2021-06-07 Pat Name: Sammy Sherwood Department: Room: 255 Gender: Female Internal Medicine Veterinary Technician: : 1955 Requested By: Katy Rea Order Number: [id number] Juan MD: Evelyn Tenorio M.D. Measurements Intervals [place] Rate: 116 P: 85 SD: 146 QRS: -76 QRSD: 149 T: 52 QT: 350 QTc: 488 Interpretive Statements SINUS TACHYCARDIA LEFT ATRIAL ENLARGEMENT [-0.15mV P-WAVE IN V1/V2] INDETERMINATE AXIS INTRAVENTRICULAR CONDUCTION DELAY [130+ ms QRS DURATION] Compared to ECG 06/07/2021 11:51:26 Atrial abnormality now present Indeterminate axis now present Electronically Signed On 06-07-2021 23:49:27 CDT by Evelyn Tenorio M.D. [id number]
--- NOTE | 2021-06-07 15:33 | USCV_ITS ---
Sammy Sherwood Age: 65 Gender: F : 1955 Exam Date: 06/07/2021 15:54 Ordering Phys: Katy Rea MD Technologist: Exam Location: [facility] [place] Indication: ENLARGED HEART BP: 143 / 72 HR: 122 Rhythm: Sinus Technical Quality: Adequate MEASUREMENTS (Male / Female) Normal Values 2D ECHO LV Diastolic Diameter PLAX 4.4 cm 4.2 - 5.9 / 3.9 - 5.3 cm LV Systolic Diameter PLAX 3.7 cm IVS Diastolic Thickness 1.3 cm 0.6 - 1.0 / 0.6 - 0.9 cm IVS Systolic Thickness 1.3 cm LVPW Diastolic Thickness 1.1 cm 0.6 - 1.0 / 0.6 - 0.9 cm LVPW Systolic Thickness 1.3 cm LVOT Diameter 2.0 cm LV Ejection Fraction 2D Teich 31.3 % LV Ejection Fraction MOD 2C 30.3 % LV Ejection Fraction 2C AL 27.7 % LA Diameter 3.7 cm LA Width 4.3 cm LA Height 4.4 cm RA Width 3.7 cm RA Height 3.7 cm Aorta at Sinotubular Diameter 2.6 cm FINDINGS Left Ventricle Normal left ventricular size. LV systolic function is severely reduced with EF of 20-25%. Severe global hypokinesis with apical akinesis Right Ventricle The right ventricle is normal in size and function. Right Atrium The right atrium is normal in size. Left Atrium The left atrium is enlarged. Mitral Valve Moderate mitral annular calcification Aortic Valve Structurally normal aortic valve without significant sclerosis or stenosis. There is no aortic regurgitation. Tricuspid Valve Grossly normal Pulmonic Valve Not visualized Pericardium Normal pericardium without effusion. Aorta Normal ascending aorta dimension. CONCLUSIONS There is a limited echocardiogram performed to assess LV systolic function. LV systolic motion is severely reduced with EF of 25%. Severe global hypokinesis is seen with apical akinesis. Left atrium is enlarged enlargement. No comparison studies are available Bc Mitchell MD (Electronically Signed) Final Date: 09 June 2021 18:32 S
[2021-06-07 15:55] LABS: NT Pro B Type Natriuretic Pept 4105 pg/mL (0-125)
[2021-06-07 16:17] LABS: Troponin 5 2HR 30.56 ng/L (0-10)
[2021-06-07 16:24] LABS: Troponin 5 2HR Delta 8.56 ABS# (0-10)
--- NOTE | 2021-06-07 17:05 | P.CONIM_ITS ---
Providers/Reason For Consult Consulting Physician/Specialty*: Bc Mitchell MD/ Cardiology Reason for Consult*: Congestive heart failure Requesting Physician: Dr Rea Attending Physician: Katy Rea MD Primary Care Provider: ESTHER Blakely History of Present Illness History of Present Illness Sammy Sherwood is a 65 year old female with no prior cardiac history presented to the hospital with diarrhea. She is getting treated for that. Diarrhea is better. She received IV fluids and her breathing got worse. CT scan showed enlarged heart and cardiology was consulted with possible diagnosis of pulmonary edema. She is volume overloaded at this time. She is feeling short of breath. She has been started on IV Lasix. She denies any current chest pain however says that in the recent past she has noted some chest tightness. EKG shows sinus tachycardia with a left bundle branch block. NT proBNP is more than 4000. Review of Systems General: Reports: 10 or more systems reviewed and unremarkable except in HPI and below Const: Denies: fever(s), chills or body aches Eyes: Denies: change in vision, blurry vision or photophobia ENMT: Reports: hoarseness; Denies: throat pain, enlarged tonsils, odynophagia or nasal congestion Card: Reports: dyspnea on exertion; Denies: chest pain, palpitations, irregular heart rhythm, edema, swelling of feet/ankles, lightheadedness, pre-syncope or orthopnea Resp: Denies: dyspnea, productive cough, non-productive cough, wheezing, stridor, pain on inspiration, change in phlegm color, hemoptysis or chest congestion GI: Denies: abdominal pain, nausea, vomiting, hematemesis, coffee ground emesis, dysphagia, heartburn, diarrhea, constipation, GI cramping, change in stool character, hematochezia or melena : Denies: flank pain, difficulty voiding, dysuria, urinary frequency, urinary urgency, urinary hesitancy or hematuria Musc: Denies: neck pain, back pain, extremity pain, joint swelling, joint warmth or deformity Neuro: Denies: headache(s), numbness in extremities, weakness in extremities, sensory changes, difficulty walking, frequent falls, dizziness, vertigo, behavioral changes, Slurred speech present or seizure-like activity Psych: Denies: anxiety, depression, suicidal ideation or homicidal ideation Endo: Denies: polyuria, polydipsia, tired all the time, cold intolerance or hot flashes Jeremias/Lymph: Denies: easy bruising or easy bleeding Meds/Allergies Home Medications and Allergies Home Medications Medication Instructions Recorded Confirmed Last Taken Type lutein 20 mg capsule 20 mg PO DAILY 12/29/20 06/04/21 1 Day Ago History ~06/03/21 omeprazole 20 mg capsule,delayed 20 mg PO DAILY 12/29/20 06/04/21 1 Day Ago History release ~06/03/21 rosuvastatin 10 mg tablet 10 mg PO DAILY 12/29/20 06/04/21 1 Day Ago History ~06/03/21 oxycodone 5 mg tablet 5 mg PO Q4H PRN 7 Days #30 tab 04/20/21 06/04/21 1 Day Ago Rx ~06/03/21 alendronate 70 mg tablet 70 mg PO .weekly tab 05/18/21 06/04/21 1 Day Ago History ~06/03/21 Allergies Allergy/AdvReac Type Severity Reaction Status Date / Time No Known Allergies Allergy Verified 06/04/21 19:17 Current Medications Current Medications Generic Name Dose Route Start Last Admin Trade Name Freq PRN Reason Stop Dose Admin Acetaminophen 650 mg 06/05/21 01:53 06/07/21 03:59 Acetaminophen 325 Mg Tablet PO 650 mg Q6H PRN Administration Mild/Mod Pain Or Temp >/= 101 Atorvastatin Calcium 20 mg 06/05/21 09:00 06/07/21 08:48 Atorvastatin 40 Mg Tablet PO 20 mg DAILY ASUNCION Administration Enoxaparin Sodium 40 mg 06/05/21 11:00 06/07/21 10:02 Enoxaparin 40 Mg/0.4 Ml Syringe SUBCUT 40 mg Q24H ASUNCION Administration Ceftriaxone Sodium 1,000 mg/ 50 mls @ 100 mls/hr 06/06/21 14:30 06/06/21 16:30 Sodium Chloride IV Infused Q24H ASUNCION Infusion Protocol Metronidazole 500 mg in 100 mls @ 100 mls/hr 06/06/21 14:30 06/07/21 08:51 Flagyl Iv IV 100 mls/hr Q8H ASUNCION Administration Protocol Loperamide HCl 2 mg 06/07/21 08:00 06/07/21 11:34 Loperamide 2 Mg Capsule PO Not Given TID ASUNCION Lorazepam 0.5 mg 06/07/21 09:43 06/07/21 10:02 Lorazepam 0.5 Mg Tablet PO 0.5 mg BID PRN Administration ANXIETY Nitroglycerin 0.4 mg 06/07/21 12:00 06/07/21 12:08 Nitroglycerin 0.4 Mg Sublingual Tablet SUBLINGUAL 0.4 mg Q5M PRN Administration CHEST PAIN Pantoprazole Sodium 40 mg 06/05/21 09:00 06/07/21 08:[address] 40 Mg Tablet PO 40 mg DAILY ASUNCION Administration Potassium Phosphate 250 mg 06/07/21 09:00 06/07/21 08:48 Phosphorus 250 Mg Tablet PO 06/07/21 18:01 250 mg BID ASUNCION Administration PFSH Acute PFSH: Medical History (Updated 06/09/21 @ 18:20 by Bc Mitchell M.D) GERD (gastroesophageal reflux disease) Hyperlipidemia Social History Alcohol intake: never Vitals/I&O/Wt Last Vital Signs Temp 97.7 F 06/07/21 11:35 Pulse 118 H 06/07/21 16:00 Resp 20 H 06/07/21 16:00 BP 111/70 06/07/21 16:00 Pulse Ox 96 06/07/21 16:00 06/07/21 06/07/21 06/07/21 06:59 14:59 22:59 Intake Total 100 / 1412.5 Output Total 4 / 5 300 / 300 Balance 96 / 1407.5 -300 / -300 Physical Exam Narrative: EXAM NARRATIVE: GENERAL: Patient is alert, awake and oriented x3. [] NECK: No jugular vein distension. [] HEENT: No cyanosis. No icterus. No pallor. [] HEART: Regular S1 and S2. No murmur, rub or gallop. [] LUNGS: Has bilateral crackles ABDOMEN: Soft, nontender and nondistended. Positive bowel sounds. No guarding, rebound or tenderness. [] CENTRAL NERVOUS SYSTEM: Grossly nonfocal. [] EXTREMITIES: Lower extremities with 1+ edema bilaterally. Pulses palpable in the lower extremities, both dorsalis pedis and posterior tibial. [] Data Micro: Micro: Microbiology 06/05/21 13:50 Enteric Pathogens (PCR) - Final Stool Routine Col lection Parasite Antigen P theresa - Final C.difficile Toxin B Gene (PCR) - Fin al A&P Assessment and plan (1) Congestive heart failure: Status: Acute (2) Hyperlipidemia: Status: Acute Patient has new onset congestive heart failure. She is volume overloaded at this time. Continue Lasix 40 mg IV twice daily. She has sinus tachycardia at this time. Once heart rate is controlled, we will repeat complete echo. Strict I&O's. Continue telemetry. Once she is euvolemic we will plan on right and left heart cath to rule out coronary artery disease and assess cardiac pressures. Thank you for involving us with care of this patient. We will continue to follow. Please call with questions. Coding Level of Care Code Acute Parks Recreation Coordinator for Jeff Su Diagnoses Congestive heart failure I50.9 Hyperlipidemia E78.5
[2021-06-07] MEDS: cefTRIAXone 1,000 MG in sodium chloride 0.9% (plus) 50 ML 100 MG IV (18:26)
[2021-06-07 19:44] LABS: Troponin 5 6HR 42.48 ng/L (0-10)
[2021-06-07 19:45] LABS: Cholesterol 86 mg/dL (0-200); HDL Cholesterol 41 mg/dL (60-100); LDL Cholesterol Calculated 30 mg/dL (50-129); Triglycerides 77 mg/dL (0-150); VLDL Cholestrol Calculation 15 mg/dL (0-30)
[2021-06-07 19:48] LABS: Troponin 5 6HR Delta 20.48 ng/L (0-12)
[2021-06-07] MEDS: metoprolol tartrate 25 mg Tablet PO (20:45)
[2021-06-07 20:48] LABS: SARS Covid-2 Antigen Negative (Negative)
[2021-06-07 20:50] LABS: Blood Gas CCRB Time 1325
[2021-06-07] MEDS: enoxaparin 80 mg/0.8 mL Syringe 70 MG SUBCUT (20:52)
[2021-06-07 21:34] LABS: Estmated Average Glucose 114; Hemoglobin A1C 5.6 % (4.0-6.0)
[2021-06-08] MEDS: metroNIDAZOLE IV 500 MG/100 ML PREMIX 100 MG IV ×3 (03:40→16:22)
[2021-06-08 04:00] VITALS: BP 106/70; PULSE 87; RESP 18; TEMP 36.9; O2SAT 94
[2021-06-08 07:56] VITALS: BP 103/66; PULSE 86; RESP 16; TEMP 36.8; O2SAT 100
--- NOTE | 2021-06-08 08:35 | P.PN_ITS ---
Subjective Subjective: Interval history: Urine output last 24 hours 3 L. She is diuresing well. Still has crackles at bases bilaterally. Her oxygen requirements are down to 2 L today. She says she feels better does not have any more symptoms of shortness of breath or chest pain. Diarrhea has also resolved at this point. Son-in-law and daughter were updated yesterday over the phone in detail. Vitals/I&O/Wt Last Vital Signs Temp 98.3 F 06/08/21 07:56 Pulse 86 06/08/21 07:56 Resp 16 06/08/21 07:56 BP 103/66 06/08/21 07:56 Pulse Ox 100 06/08/21 07:56 06/07/21 06/08/21 06/08/21 22:59 06:59 14:59 Intake Total 150 / 250 100 / 350 Output Total 3400 / 3400 800 / 4200 Balance -3250 / -3150 -700 / -3850 Physical Exam Narrative: EXAM NARRATIVE: General: Alert oriented x3, patient seen laying in bed appearing comfortable HEENT: Normocephalic, atraumatic, EOMI, on 3 L nasal cannula. Cardio: Regular rate rhythm, normal S1-S2, no murmurs rubs gallops, Respiratory: Fine crackles auscultated bilaterally at bases. GI: Abdomen soft, nontender to palpation today., not distended, bowel sounds slightly hyperactive. Behavior: Appropriate and cooperative Extremities: no edema, no cyanosis Urinary Catheter Management^: Lopez: Cath Placed During This Visit: yes Reason for Continuing Indwelling Catheter: Accurate Measurement of Urinary Output in Critically Ill Patients Urinary Catheter Date of Insertion: 06/07/21 Urinary Catheter Time of Insertion: 16:00 Data : 06/08/21 09:05 06/08/21 09:05 A&P Assessment and plan (1) Enterocolitis: Status: Acute (2) Gastroenteritis: Status: Acute (3) Dehydration: Status: Acute Additional A&P Information #Enterocolitis possibly viral in etiology at this point. Initially patient did get ceftriaxone and metronidazole at admission but they were discontinued yesterday. Viral etiology is suspected. Stool culture is negative for Shigella, Campylobacter, ova parasites. C. difficile negative Patient has been afebrile and leukocytosis has resolved.. We will continue antibiotics for now. We will place patient on brat diet. Abdomen is soft no signs of acute abdomen We will stop loperamide and see how patient responds. #Flash pulmonary edema secondary to new onset systolic heart failure -CTA ruled out PE. Stat limited echo ordered showed EF of 15%. ?Continue Lasix 40 IV twice daily. We will start her on aspirin, atorvastatin, beta-beto. ?Daughter updated yesterday. We will continue to diurese patient and she will go for angiogram once more euvolemic. Cardiology on board. Will follow recommendations. #RICH secondary to dehydration -RICH has resolved. Stop IV fluids. Full code GI soft diet DVT prophylaxis Lovenox Attestations Medical Necessity Statement*: Requires greater than 48 hours and patient hospital stay. Time Spent in Patient Care: less than 15 minutes Coding Level of Care Code Acute Convention Worker for Chg Fwd Diagnoses Enterocolitis K52.9 Gastroenteritis K52.9 Dehydration E86.0
[2021-06-08 09:38] LABS: Basophils % 0.4 %; Eosinophils % 0.2 %; Hematocrit 37.4 % (37.0-47.0); Hemoglobin 12.5 g/dL (11.5-15.3); Lymphocytes # 1.9 10^3/uL (0.8-4.8); Lymphocytes % 34.6 %; Mean Corpuscular HGB Conc 33.4 g/dL (30.0-36.0); Mean Corpuscular Hemoglobin 29.2 pg (28.0-34.0); Mean Corpuscular Volume 87.4 fl (81-99); Mean Platelet Volume 10.5 fL (7.4-10.4); Monocytes # 0.4 10^3/uL (0.2-0.9); Monocytes % 8.1 %; Neutrophils # 3.01 10^3/uL (1.8-7.7); Neutrophils % 56.3 %; Nucleated Red Blood Cells % 0 %; Platelet Count 174 10^3/cmm (130-400); Red Blood Count 4.28 10^6/uL (4.1-5.3); Red Cell Distribution Width 14.1 % (12.1-15.1); White Blood Count 5.3 10^3/uL (4.0-10.0)
[2021-06-08 10:01] LABS: Alanine Aminotransferase 25 U/L (0-33); Albumin Level 3.6 g/dL (3.5-5.2); Alkaline Phosphatase 48 IU/L (35-105); Aspartate Amino Transferase 33 U/L (0-32); Blood Urea Nitrogen 8 mg/dL (8-23); Carbon Dioxide 24 mmol/L (22-29); Chloride 105 mmol/L (98-107); Globulin 3.1 g/dL (1.3-4.6); Glomerular Filtration Rate 123.4 mL/min (90-130); Glucose 97 mg/dL (65-115); Magnesium 1.9 mg/dL (1.7-2.3); Osmolality Calculated 288 mOsm/kg (285-295); Sodium 140 mmol/L (136-145); Total Bilirubin 0.6 mg/dL (0.15-1.2); Total Protein 6.7 g/dL (6.6-8.7)
[2021-06-08] MEDS: loperamide 2 mg Capsule PO (10:03)
[2021-06-08] MEDS: metoprolol tartrate 25 mg Tablet PO ×2 (10:04→20:01)
[2021-06-08] MEDS: atorvastatin 40 mg Tablet 20 MG PO (10:04)
[2021-06-08] MEDS: aspirin 81 mg EC Tablet PO (10:04)
[2021-06-08] MEDS: pantoprazole DR 40 mg Tablet PO (10:04)
[2021-06-08] MEDS: enoxaparin 80 mg/0.8 mL Syringe 70 MG SUBCUT ×2 (10:06→20:00)
[2021-06-08 11:26] VITALS: BP 100/64; PULSE 89; RESP 16; TEMP 36.3; O2SAT 97
[2021-06-08 11:42] LABS: Slide Review Slide Review Perform
--- NOTE | 2021-06-08 12:07 | PC.SOCIAL ---
Pg 2 IMM Explained to pt Pg 2 IMM. No questions voiced. Provided pt a copy. Initialed, dated, & timed a copy & placed in chart.
[2021-06-08] MEDS: FUROsemide 10 mg/mL SDV 4mL 40 MG IVP ×2 (12:59→17:57)
--- NOTE | 2021-06-08 13:22 | PM.PN ---
Subjective Subjective: Interval history: Patient is feeling better. She is diuresing well. Echocardiogram shows severely depressed EF of 20 to 25%. Vitals/I&O/Wt Last Vital Signs Temp 97.4 F L 06/08/21 11:26 Pulse 89 06/08/21 11:26 Resp 16 06/08/21 11:26 BP 100/64 06/08/21 11:26 Pulse Ox 97 06/08/21 11:26 06/07/21 06/08/21 06/08/21 22:59 06:59 14:59 Intake Total 150 / 250 100 / 350 825 / 825 Output Total 3400 / 3400 800 / 4200 200 / 200 Balance -3250 / -3150 -700 / -3850 625 / 625 Physical Exam Narrative: EXAM NARRATIVE: GENERAL: Patient is alert, awake and oriented x3. [] NECK: No jugular vein distension. [] HEENT: No cyanosis. No icterus. No pallor. [] HEART: Regular S1 and S2. No murmur, rub or gallop. [] LUNGS: Has bilateral crackles ABDOMEN: Soft, nontender and nondistended. Positive bowel sounds. No guarding, rebound or tenderness. [] CENTRAL NERVOUS SYSTEM: Grossly nonfocal. [] EXTREMITIES: Lower extremities with 1+ edema bilaterally. Pulses palpable in the lower extremities, both dorsalis pedis and posterior tibial. [] Urinary Catheter Management^: Lopez: Cath Placed During This Visit: yes Reason for Continuing Indwelling Catheter: Accurate Measurement of Urinary Output in Critically Ill Patients Urinary Catheter Date of Insertion: 06/07/21 Urinary Catheter Time of Insertion: 16:00 Data : 06/09/21 04:57 06/09/21 04:57 Micro: Microbiology 06/07/21 04:57 Stool Lactoferrin - Final Stool A&P Assessment and plan (1) Congestive heart failure: Status: Acute (2) Hyperlipidemia: Status: Acute Patient has new onset congestive heart failure. She is diuresing well. Continue Lasix 40 mg twice daily. She has sinus tachycardia at this time. Once heart rate is controlled, we will repeat complete echo. Strict I&O's. Continue telemetry. Likely coronary angiogram on as patient is diuresing well.. Thank you for involving us with care of this patient. We will continue to follow. Please call with questions. Attestations Medical Necessity Statement*: Care expected to cross 2 midnights. Coding Level of Care Code Acute Receiving And Processing Supervisor for Jeff Su Diagnoses Congestive heart failure I50.9 Hyperlipidemia E78.5
[2021-06-08] MEDS: potassium chloride ER 20 mEq Tablet 40 MEQ PO (14:21)
[2021-06-08] MEDS: cefTRIAXone 1,000 MG in sodium chloride 0.9% (plus) 50 ML 100 MG IV (14:22)
[2021-06-08 15:50] LABS: Eosinophil Urine No Eosinophils Seen
[2021-06-08 16:00] VITALS: BP 93/59; PULSE 78; RESP 16; TEMP 36.5; O2SAT 98
[2021-06-08 20:00] VITALS: BP 100/67; PULSE 88; RESP 16; TEMP 36.2; O2SAT 98
[2021-06-08] MEDS: acetaminophen 325 mg Tablet 650 MG PO (21:58)
[2021-06-09] VITALS: BP 101/63; PULSE 84; RESP 17; TEMP 37; O2SAT 98
[2021-06-09] MEDS: metroNIDAZOLE IV 500 MG/100 ML PREMIX 100 MG IV ×4 (02:06→23:38)
[2021-06-09 04:00] VITALS: BP 92/58; PULSE 82; RESP 16; TEMP 36.6; O2SAT 98
[2021-06-09 05:34] LABS: Basophils % 0.3 %; Eosinophils % 0.7 %; Hematocrit 37.5 % (37.0-47.0); Hemoglobin 12.5 g/dL (11.5-15.3); Lymphocytes # 2.5 10^3/uL (0.8-4.8); Lymphocytes % 41.5 %; Mean Corpuscular HGB Conc 33.3 g/dL (30.0-36.0); Mean Corpuscular Hemoglobin 29.3 pg (28.0-34.0); Mean Corpuscular Volume 87.8 fl (81-99); Mean Platelet Volume 10.9 fL (7.4-10.4); Monocytes # 0.8 10^3/uL (0.2-0.9); Monocytes % 12.9 %; Neutrophils # 2.71 10^3/uL (1.8-7.7); Neutrophils % 44.3 %; Nucleated Red Blood Cells % 0 %; Platelet Count 201 10^3/cmm (130-400); Red Blood Count 4.27 10^6/uL (4.1-5.3); Red Cell Distribution Width 13.8 % (12.1-15.1); White Blood Count 6.1 10^3/uL (4.0-10.0)
[2021-06-09 05:37] LABS: Anion Gap 16.5 (5-19); Blood Urea Nitrogen 15 mg/dL (8-23); Calcium 8.2 mg/dL (8.5-10.5); Carbon Dioxide 25 mmol/L (22-29); Chloride 103 mmol/L (98-107); Glomerular Filtration Rate 123.4 mL/min (90-130); Glucose 107 mg/dL (65-115); Osmolality Calculated 293 mOsm/kg (285-295); Potassium 3.5 mmol/L (3.5-5.1); Sodium 141 mmol/L (136-145)
[2021-06-09 06:50] LABS: Slide Review Slide Review Perform
[2021-06-09 07:21] VITALS: BP 91/57; PULSE 81; RESP 18; TEMP 36.7; O2SAT 98
[2021-06-09] MEDS: aspirin 81 mg EC Tablet PO (08:59)
[2021-06-09] MEDS: pantoprazole DR 40 mg Tablet PO (08:59)
[2021-06-09] MEDS: atorvastatin 40 mg Tablet 20 MG PO (08:59)
[2021-06-09] MEDS: FUROsemide 10 mg/mL SDV 4mL 40 MG IVP (08:59)
[2021-06-09] MEDS: metoprolol tartrate 25 mg Tablet PO ×2 (09:08→20:41)
[2021-06-09] MEDS: enoxaparin 80 mg/0.8 mL Syringe 70 MG SUBCUT ×2 (09:09→20:41)
[2021-06-09 12:00] VITALS: BP 97/64; PULSE 88; RESP 17; TEMP 36.8; O2SAT 95
--- NOTE | 2021-06-09 12:56 | P.PN_ITS ---
Subjective Subjective: Interval history: Seen and examined this morning. Daughter was updated at bedside yesterday evening. Patient is doing well. She has put out 5 L of urine in the last 48 hours. I will cut down her Lasix to once daily at this point. Patient will go for angiogram tomorrow morning. Vitals/I&O/Wt Last Vital Signs Temp 98.2 F 06/09/21 12:00 Pulse 88 06/09/21 12:00 Resp 17 06/09/21 12:00 BP 97/64 06/09/21 12:00 Pulse Ox 95 06/09/21 12:00 06/08/21 06/09/21 06/09/21 22:59 06:59 14:59 Intake Total 150 / 1075 100 / 1175 220 / 220 Output Total 575 / 2125 1100 / 1100 Balance -425 / -1050 100 / -950 -880 / -880 Physical Exam Narrative: EXAM NARRATIVE: General: Alert oriented x3, patient seen laying in bed appearing comfortable HEENT: Normocephalic, atraumatic, EOMI, on 2 L nasal cannula. Cardio: Regular rate rhythm, normal S1-S2, no murmurs rubs gallops, Respiratory: Lungs clear to auscultation today. GI: Abdomen soft, nontender to palpation today., not distended, bowel sounds slightly hyperactive. Behavior: Appropriate and cooperative Extremities: no edema, no cyanosis Urinary Catheter Management^: Lopez: Cath Placed During This Visit: yes Reason for Continuing Indwelling Catheter: Acute Urinary Retention or Obstruction Urinary Catheter Date of Insertion: 06/07/21 Urinary Catheter Time of Insertion: 16:00 Data : 06/09/21 04:57 06/09/21 04:57 Micro: Microbiology 06/07/21 04:57 Stool Lactoferrin - Final Stool A&P Assessment and plan (1) Enterocolitis: Status: Acute (2) Gastroenteritis: Status: Acute (3) Dehydration: Status: Acute Additional A&P Information #Enterocolitis possibly viral in etiology at this point. Initially patient did get ceftriaxone and metronidazole at admission but they were discontinued yesterday. Viral etiology is suspected. Stool culture is negative for Shigella, Campylobacter, ova parasites. C. difficile negative Patient has been afebrile and leukocytosis has resolved.. We will continue antibiotics for now. We will place patient on brat diet. Abdomen is soft no signs of acute abdomen No longer having diarrhea. She stated today her bowel movements are back to normal. #Flash pulmonary edema secondary to new onset systolic heart failure -CTA ruled out PE. Stat limited echo ordered showed EF of 15%. Change Lasix to once daily at this point. We will start her on aspirin, atorvastatin, beta-beto. ?Daughter updated yesterday. We will go for angiogram tomorrow. Cardiology on board. Will follow recommendations. #RICH secondary to dehydration -RICH has resolved. Stop IV fluids. Full code N.p.o. at midnight. DVT prophylaxis Lovenox Attestations Medical Necessity Statement*: Angiogram tomorrow. Anticipate additional 24- hour hospital stay. Time Spent in Patient Care: less than 15 minutes Coding Level of Care Code Acute Condenser Tube Tender for Chg Fwd Diagnoses Enterocolitis K52.9 Gastroenteritis K52.9 Dehydration E86.0
[2021-06-09] MEDS: cefTRIAXone 1,000 MG in sodium chloride 0.9% (plus) 50 ML 100 MG IV (14:06)
[2021-06-09 16:00] VITALS: BP 110/74; PULSE 82; RESP 16; TEMP 36.8; O2SAT 94
--- NOTE | 2021-06-09 18:43 | P.PN_ITS ---
Subjective Subjective: Interval history: Patient is feeling much better. She is able to lay down flat. She is on 2 L oxygen this morning. Vitals/I&O/Wt Last Vital Signs Temp 98.3 F 06/09/21 16:00 Pulse 82 06/09/21 16:00 Resp 16 06/09/21 16:00 BP 110/74 06/09/21 16:00 Pulse Ox 94 06/09/21 16:00 06/09/21 06/09/21 06/09/21 06:59 14:59 22:59 Intake Total 100 / 1175 220 / 220 1400 / 1620 Output Total 1100 / 1100 Balance 100 / -950 -880 / -880 1400 / 520 Physical Exam Narrative: EXAM NARRATIVE: GENERAL: Patient is alert, awake and oriented x3. [] NECK: No jugular vein distension. [] HEENT: No cyanosis. No icterus. No pallor. [] HEART: Regular S1 and S2. No murmur, rub or gallop. [] LUNGS: Mild bilateral crackles ABDOMEN: Soft, nontender and nondistended. Positive bowel sounds. No guarding, rebound or tenderness. [] CENTRAL NERVOUS SYSTEM: Grossly nonfocal. [] EXTREMITIES: Lower extremities with 1+ edema bilaterally. Pulses palpable in the lower extremities, both dorsalis pedis and posterior tibial. [] Urinary Catheter Management^: Lopez: Cath Placed During This Visit: yes Reason for Continuing Indwelling Catheter: Accurate Measurement of Urinary Output in Critically Ill Patients Urinary Catheter Date of Insertion: 06/07/21 Urinary Catheter Time of Insertion: 16:00 Data : 06/09/21 04:57 06/09/21 04:57 A&P Assessment and plan (1) Congestive heart failure: Status: Acute (2) Hyperlipidemia: Status: Acute Patient has new onset congestive heart failure. Diuresed well and is able to lay down flat. Down titrate Lasix. We will plan on coronary angiogram and a right heart cath tomorrow. Risks and benefits of the procedure have been discussed with the patient who agrees to proceed. We will obtain complete echo as heart rate is better controlled now. Strict I&O's. Continue telemetry. N.p.o. past midnight Thank you for involving us with care of this patient. We will continue to follow. Please call with questions. Attestations Medical Necessity Statement*: Care expected to cross 2 midnights Coding Level of Care Code Acute First Press Operator for Jeff Fwd Diagnoses Congestive heart failure I50.9 Hyperlipidemia E78.5
[2021-06-09 20:00] VITALS: BP 103/67; PULSE 92; RESP 17; TEMP 36.5; O2SAT 96
[2021-06-10] VITALS (26 sets, daily range): BP systolic 92–140; BP diastolic 60–78; PULSE 67–90; RESP 7–33; TEMP 36.5–37.1; O2SAT 92–98
--- NOTE | 2021-06-10 09:01 | XACV_ITS ---
Exam Room: [facility] Ht: 150 cm Wt: 77 kg BSA: 1.83 m2 Gender: Female : 1955 Any Known Allergies: No known allergies Exam Priority: Routine Procedure(s): Procedure Description: Diagnostic procedure Procedure Description: Left Heart Catheterization Procedure Description: Right Heart Catheterization Procedure Description: O2 saturation Procedure Description: Coronary Angiography Diagnostic Cath Status: Elective Diagnostic Findings * Left Main has luminal irregularities. * Circumflex has mild luminal irregularities. * Right Coronary Artery has minor irregularities. * Ramus: obstructive 60-70% stenosis, JORDANA: 3 flow. * Right heart cath findings: RA pressure: 14/11 PCW: 1618/15 RV: 37/5/10 PA: 41/19/27 AO sat: 92% PA sat: 51% Cardiac output: 3.5 Cardiac index: 2 PVR: 3.42 Wood units. * Distal Left Anterior Descending: severe 90% stenosis, JORDANA: 3 flow. * Coronary angiography shows right dominance. Conclusions 1. Nonischemic cardiomyopathy. 2. Patient moderate to severe ostial ramus artery disease and severe distal LAD stenosis. However CAD does not explain her cardiomyopathy. 3. Borderline elevated right and left-sided cardiac pressures. Recommendations * Aggressive risk factor control. * Guideline directed heart failure therapy. * Outpatient cardiology follow-up and 4 weeks. Interventional RX Recommendation: medical therapy and/or counseling Diagnostic RX Recommendation: medical therapy and/or counseling Anticoagulation: Heparin Pressures Phase:Rest AO : 58 / 45 ( 50 ) @ 9:33:00 AM 74 / 56 ( 64 ) @ 9:38:00 AM 95 / 69 ( 81 ) @ 9:39:00 AM 109 / 76 ( 91 ) @ 9:40:00 AM 115 / 78 ( 95 ) @ 9:41:00 AM 110 / 73 ( 88 ) @ 9:42:00 AM 122 / 74 ( 95 ) @ 9:46:00 AM 122 / 76 ( 95 ) @ 9:46:00 AM LV : 124 / 4 / 35 @ 9:45:00 AM 126 / 6 / 35 @ 9:45:00 AM 125 / 5 / 34 @ 9:46:00 AM RV : 37 / 5 / 10 @ 9:24:00 AM PA : 41 / 19 ( 27 ) @ 9:23:00 AM RA : a wave = 14 v wave = 12 mean = 11 @ 9:25:00 AM PCW : a wave = 16 v wave = 18 mean = 15 @ 9:22:00 AM O2 Content Phase:Rest PA : O2 Content O2: 50.7 @ 9:33:00 AM Saturations Phase:Rest AO : 92 @ 9:38:00 AM PA : 51 @ 9:33:00 AM Cardiac Output Phase:Rest Martha : 2 @ 10:53:42 AM Martha Cardiac Index: 1 @ 10:53:42 AM Flow Phase:Rest Qp : 2 @ 10:53:42 AM Qs : 2 @ 10:53:42 AM Valves Phase:DefaultPhase AV : 3.0 @ 10:53:42 AM AV Mean Gradient: 8.0 @ 10:53:42 AM 8.0 @ 10:53:42 AM AV Flow: 139 @ 10:53:42 AM AV Area: 1.1 @ 10:53:42 AM AV Area Index: 0.65 @ 10:53:42 AM Clinical Evaluation EBL: 5mL-10mL Procedural Details Procedure Consent Obtained. Pre-Procedure Time Out. Identified patient by full name and date of as verbalized by the patient/guarantor. Does the consent match the physician's order: Yes. Accurate & Complete Informed Consent: Yes. Inpatient/Outpatient History & Physical on Chart: Yes. If H&P is completed, is and addenduem needed: No; If yes, is the addendum complete: N/A. Visualize and Verify Site with Patient/Guarantor: N/A. Relevant Radiology Images available: Yes. Pre-op teaching completed and patient verbalized understanding. The risks, benefits, and alternatives of sedation and/or procedure were discussed by physician. The patient agrees to continue. Procedure started. [facility] Clinical Fraility Score: 3: Managing Well. Manager Process Excellence Indications: Other. Chest Pain Symptom Assessment: Non-anginal Chest Pain. PERRLA. Strong, equal hand computer discovery teacher bilaterally. Lungs clear x 5 lobes. IV Site on Arrival: 18 gauge in the right anticubital. IV Site on Arrival: 18 gauge in the left anticubital. IV Fluids: 0.9% NaCl at KVO. 0 mL infused prior to clinical laboratory service teacher. Pre Procedural Pulses: right radial was 3+. right radial was prepped with chloroprep then draped in the usual sterile fashion. right brachial was prepped with chloroprep then draped in the usual sterile fashion. Physician notified. Baseline sample Acquired. HR: 77 BPM. Physician arrived. Physician scrubbed in. Immediate Pre-Procedure Time Out. Correct Patient: Yes; Correct Procedure: Yes; Correct Site: Yes; Correct Patient Position: Yes; Correct Supplies: Yes; Dried Flammable Prep: Yes; Blood Products Available: N/A;. Lidocaine 1% infiltrated to the right brachial. Sheath wire inserted through the IV catheter. IV catheter removed OTW. [place] MON catheter inserted. Oximetry samples were obtained. Normal venous range: 60-85%. Normal arterial range: 95-100%. Pressure measurements obtained. [place] out. Lidocaine 1% infiltrated to the right radial. Arterial access obtained. A 5 sinhala TIG catheter in over wire. Oxygen started at 3liters/min via nasal canula. Multiple views taken of left coronary artery. Catheter redirected to the RCA. Multiple views taken of right coronary artery. EDP Sample taken: LV 124/4,35; HR: 71 BPM; SpO2: 100%. EDP Sample taken: LV 126/6,35; HR: 72 BPM; SpO2: 100%. Pullback taken: LV 125/5,34; AO 122/74(95); Mean: 8mmHg, Peak to Peak: 3mmHg, SEP: 17sec/min; HR: 72 BPM; SpO2: 100%. Catheter removed over the exchange wire. A TR Band was successful obtaining hemostatsis at the Right Radial artery insertion site. Venous sheath removed OTW and the IV catheter advanced OTW and placed in the brachial vein. Post Procedure: Pulses reassessed and unchanged. PERRLA. Strong, equal hand computer discovery teacher bilaterally. No VTE prophylaxis required. Medication's Wasted: Lidocaine 1% = 18 mL. Medication's Wasted: Heparin = 1000 units. Medication's Wasted: Nitro = 49.8 mg. Medication's Wasted: Other = Neosynephrine 3.75 mg. Total IV fluids: 185 mL. Complications: None. Estimated blood loss: 5mL-10mL. Procedure completed. Patient transferred by wheelchair to 1st floor. Vital chart was stopped. Access Site Site: Right Brachial Vein Sheath Size: 6 Fr Hemostasis Success: Unsuccessful Site: Right Radial artery Sheath Size: 6 Fr Hemostasis Method: TR Band Hemostasis Success: Successful Procedure Medications Start: 10:16 AM Stop: 10:16 AM Medication: Fentanyl Amount: 50 mcg Route: I.V. Start: 10:16 AM Stop: 10:16 AM Medication: Versed Amount: 1 mg Route: I.V. Start: 10:29 AM Stop: 10:29 AM Medication: Nitrogylcerin Amount: 200 mcg Route: I.A. Start: 10:34 AM Stop: 10:34 AM Medication: 0.9% Saline Amount: 180 ml Route: I.V. bolus Start: 10:37 AM Stop: 10:37 AM Medication: Neosynephrine Amount: 25 mcg Route: I.V. Start: 10:38 AM Stop: 10:38 AM Medication: Neosynephrine Amount: 25 mcg Route: I.V. I, the attending physician, have reviewed and verified all procedure medications. Yes, all medications given per verbal order History/Risk Factors Hypertension: Yes Dyslipidemia: No Peripheral Arterial Disease (PAD): No Myocardial Infarction (RI): No Obesity: No Renal Disease: No Prior Interventions PCI: No CABG: No Valve Surgery: No Report Signatures Finalized by Bc Mitchell MD on 06/20/2021 09:36 PM
[2021-06-10] MEDS: metoprolol tartrate 25 mg Tablet PO (09:02)
[2021-06-10] MEDS: metroNIDAZOLE IV 500 MG/100 ML PREMIX 100 MG IV (09:03)
[2021-06-10] MEDS: enoxaparin 80 mg/0.8 mL Syringe 70 MG SUBCUT (09:03)
[2021-06-10] MEDS: diphenhydrAMINE 50 mg Capsule PO (09:13)
--- NOTE | 2021-06-10 10:09 | P.HPUD_ITS ---
Surgery/Procedure H&P Update DATE OF PROCEDURE: June 10, 2021 DATE H&P PERFORMED: 06/07/21 H&P UPDATE INFORMATION: I have reviewed H&P completed within last 30 days, I have examined patient prior to procedure and No changes to prior documentation PREOP DIAGNOSIS: New onset heart failure PRIMARY INDICATION FOR PROCEDURE: New onset heart failure PLANNED PROCEDURE: Operation Date: 06/10/21 10:00 Proposed Procedures p Cardiac Catheterization(Bilateral) - Bc Mitchell M.D Possible percutaneous coronary intervention PATIENT REASSESSED PRIOR TO SEDATION, WITH NO CHANGE NOTED: Yes PHYSICAL EXAM: alert, oriented x 3, clear to auscultation bilaterally and regula r rate & rhythm AIRWAY EVAL/ANESTHESIA PLAN: ASA III, Monitored Anesthesia, Local Anesthesia, Risks, benefits & alternatives of sedation and/or procedure discussed and Patient agrees to continue as planned
--- NOTE | 2021-06-10 10:52 | PC.NURSE ---
Report Gave report to Bisi JOHNSON before pt gets out of angiogram.
--- NOTE | 2021-06-10 11:58 | PC.SOCIAL ---
IMM updated IMM updated with patient. Verbalized an understanding. Copy Pg 2 provided. Initialled, dated, timed, and placed in chart.
[2021-06-10 12:43] LABS: Erythrocyte Sedimentation Rate 17 mm/hr (0-15)
--- NOTE | 2021-06-10 12:50 | USCV_ITS ---
Sammy Sherwood Age: 65 Gender: F : 1955 Exam Date: 06/10/2021 14:05 Ordering Phys: Bc Mitchell M.D ([email or web address]) Technologist: Ron Felix Exam Location: [facility] [place] Indication: CHF BP: 114 / 61 HR: 80 Rhythm: Sinus Technical Quality: MEASUREMENTS (Male / Female) Normal Values 2D ECHO LV Diastolic Diameter PLAX 4.3 cm 4.2 - 5.9 / 3.9 - 5.3 cm LV Systolic Diameter PLAX 3.8 cm IVS Diastolic Thickness 1.3 cm 0.6 - 1.0 / 0.6 - 0.9 cm IVS Systolic Thickness 1.5 cm LVPW Diastolic Thickness 1.1 cm 0.6 - 1.0 / 0.6 - 0.9 cm LVPW Systolic Thickness 1.3 cm LVOT Diameter 2.0 cm LV Ejection Fraction 2D Teich 25.2 % LV Ejection Fraction MOD 2C 28.4 % LV Ejection Fraction 2C AL 28.0 % LA Diameter 3.4 cm LA Width 4.2 cm LA Height 5.0 cm RA Width 3.5 cm RA Height 4.5 cm DOPPLER AV Peak Velocity 161.0 cm/s LVOT Peak Velocity 80.0 cm/s AV Area Cont Eq vti 1.4 cm squared AV Area Cont Eq pk 1.6 cm squared MV Area PHT 5.0 cm squared Mitral E to A Ratio 0.8 MV E' Velocity 43.5 cm/s Mitral E to MV E' Ratio 17.5 Mitral E to LV E' Lateral Ratio 18.2 Mitral E to LV E' Septal Ratio 16.8 TR Peak Velocity 152.3 cm/s TR Peak Gradient 9.3 mmHg FINDINGS Left Ventricle Normal left ventricular size. LV systolic function is severely reduced with EF of 20-25%.Severe global hypokinesis is seen. Septal motion is consistent with conduction abnormality. Grade 1 diastolic dysfunction Right Ventricle The right ventricle is normal in size and function. Right Atrium The right atrium is normal in size. Left Atrium The left atrium is normal in size. Mitral Valve Mild mitral annular calcification is seen without significant stenosis or prolapse. There is mild mitral regurgitation. Aortic Valve Grossly normal without significant stenosis. There is no aortic regurgitation. Tricuspid Valve Structurally normal tricuspid valve without significant stenosis or regurgitation. Insufficient TR jet to calculate RVSP Pulmonic Valve Not well visualized Pericardium Normal pericardium without effusion. Aorta Normal ascending aorta dimension. CONCLUSIONS Technically limited quality echocardiogram because of poor ultrasonic windows. LV systolic function is severely reduced with EF of 20 to 25%. Severe global hypokinesis is seen. Grade 1 diastolic dysfunction. Mild mitral regurgitation. Comparison with prior echocardiogram from 06/07/2021 shows no significant change. Bc Mitchell MD (Electronically Signed) Final Date: 10 June 2021 14:35 S
--- NOTE | 2021-06-10 13:31 | P.PN_ITS ---
Subjective Subjective: Interval history: Patient underwent coronary angiogram today that showed moderate to severe ostial ramus stenosis and distal LAD stenosis however as this did not explain her heart failure and she was not having any chest pain symptoms recently, we decided to treat this medically. Patient is denying any chest pain. Her shortness of breath has improved. Vitals/I&O/Wt Last Vital Signs Temp 98.8 F 06/10/21 12:25 Pulse 83 06/10/21 12:25 Resp 16 06/10/21 12:25 BP 120/74 06/10/21 12:25 Pulse Ox 94 06/10/21 12:25 06/09/21 06/10/21 06/10/21 22:59 06:59 14:59 Intake Total 0 / 1979 100 / 2080 Output Total 450 / 1550 Balance 1760 / 880 -350 / 530 Physical Exam Narrative: EXAM NARRATIVE: GENERAL: Patient is alert, awake and oriented x3. [] NECK: No jugular vein distension. [] HEENT: No cyanosis. No icterus. No pallor. [] HEART: Regular S1 and S2. No murmur, rub or gallop. [] LUNGS: Mild bilateral crackles ABDOMEN: Soft, nontender and nondistended. Positive bowel sounds. No guarding, rebound or tenderness. [] CENTRAL NERVOUS SYSTEM: Grossly nonfocal. [] EXTREMITIES: Lower extremities with 1+ edema bilaterally. Pulses palpable in the lower extremities, both dorsalis pedis and posterior tibial. [] Urinary Catheter Management^: Lopez: Cath Placed During This Visit: yes Reason for Continuing Indwelling Catheter: Acute Urinary Retention or Obstruction Urinary Catheter Date of Insertion: 06/07/21 Urinary Catheter Time of Insertion: 16:00 Data : 06/09/21 04:57 06/09/21 04:57 Micro: Microbiology 06/05/21 05:45 Blood Culture - Final Blood NO GROWTH AFTER 5 DAYS 06/05/21 05:30 Blood Culture - Final Blood NO GROWTH AFTER 5 DAYS A&P Assessment and plan (1) Congestive heart failure: Status: Acute (2) Hyperlipidemia: Status: Acute Patient had new onset congestive heart failure. Today she has diuresed well. Today underwent coronary angiogram that showed ostially ramus moderate to severe ramus artery disease in the distal LAD that was not supplying much of myocardium. These lesions do not explain her severe congestive heart failure. Medical therapy for now. Continue Coreg. Can start low-dose lisinopril if blood pressure allows. Continue oral Lasix 40 mg daily. Low-sodium diet advised Outpatient cardiology follow-up. We will need repeat echocardiogram in 3 months to reassess LV systolic function if it stays low, she will qualify for an ICD/AUDIO/VISUAL MANAGER-D. Thank you for involving us with care of this patient. We will continue to follow. Please call with questions. Attestations Medical Necessity Statement*: Care expected to cross 2 midnights. Coding Level of Care Code Acute Renewable Energy Project Manager for Jeff Su Diagnoses Congestive heart failure I50.9 Hyperlipidemia E78.5
--- NOTE | 2021-06-10 14:25 | P.PN_ITS ---
Subjective Subjective: Interval history: seen today after cath. she feels well. final cath report pending. she offers no complaints. she is on room air today and off the O2. diarrhea has resolved. Labs reviewed. Vitals/I&O/Wt Last Vital Signs Temp 98.8 F 06/10/21 12:25 Pulse 83 06/10/21 12:25 Resp 16 06/10/21 12:25 BP 120/74 06/10/21 12:25 Pulse Ox 94 06/10/21 12:25 06/09/21 06/10/21 06/10/21 22:59 06:59 14:59 Intake Total 1759 / 1979 100 / 2080 Output Total 450 / 1550 Balance 1760 / 880 -350 / 530 Physical Exam Narrative: EXAM NARRATIVE: General: Alert oriented x3, patient seen laying in bed appearing comfortable HEENT: Normocephalic, atraumatic, EOMI, on room air. Cardio: Regular rate rhythm, normal S1-S2, no murmurs rubs gallops, Respiratory: Lungs clear to auscultation today. no crackles, wheezes or ronchi GI: Abdomen soft, nontender to palpation today., not distended, bowel sounds normoactive Behavior: Appropriate and cooperative Extremities: no edema, no cyanosis Urinary Catheter Management^: Ochoa: Cath Placed During This Visit: yes Reason for Continuing Indwelling Catheter: Acute Urinary Retention or Obstru ction Urinary Catheter Date of Insertion: 06/07/21 Urinary Catheter Time of Insertion: 16:00 Data : 06/09/21 04:57 06/09/21 04:57 Micro: Microbiology 06/05/21 05:45 Blood Culture - Final Blood NO GROWTH AFTER 5 DAYS 06/05/21 05:30 Blood Culture - Final Blood NO GROWTH AFTER 5 DAYS A&P Assessment and plan (1) Enterocolitis: Status: Acute (2) Gastroenteritis: Status: Acute (3) Dehydration: Status: Acute Additional A&P Information #Enterocolitis most likely viral etiology - resolved. Initially patient did get ceftriaxone and metronidazole at admission. Viral etiology is suspected. Stool culture is negative for Shigella, Campylobacter, ova parasites. C. difficile negative Patient has been afebrile and leukocytosis has resolved.. We will place patient on brat diet. Abdomen is soft no signs of acute abdomen No longer having diarrhea. She stated today her bowel movements are back to normal. Will stop antibiotics. #Flash pulmonary edema secondary to new onset systolic heart failure s/p angiogram today with no PCI -CTA ruled out PE. Stat limited echo ordered showed EF of 15%. We will start her on aspirin, atorvastatin, beta-beto. Had angiogram today. Final report pending. Cardiology on board. Will follow recommendations. Repeat complete CV echo today. Medically management pt as per cardio. Will start coreg 3.125 BID. Will add lisnopril 2.5 daily as well if BP permits. . Will remove ochoa today. #RICH secondary to dehydration -RICH has resolved. Stop IV fluids. Full code Cardiac diet. DVT prophylaxis Lovenox Attestations Medical Necessity Statement*: plan to dc in AM. Coding Level of Care Code Acute Sample Case Porter for Chg Fwd Diagnoses Enterocolitis K52.9 Gastroenteritis K52.9 Dehydration E86.0
--- NOTE | 2021-06-10 15:30 | PC.NURSE ---
Reduced air in TR band over period of 2 hours. No hematoma. No c/o pain. Drsg placed.
[2021-06-10] MEDS: carvedilol 3.125 mg Tablet PO (18:16)
--- NOTE | 2021-06-10 19:33 | PC.NURSE ---
Bedside report received from ELIZABETH Mathews. Patient resting in bed watching TV. Patient is s/p [facility] with right radial access. Dressing in place to right wrist remain c,d,i. No s/s of bleeding or hematoma formation noted. Patient denies any pain presently. Assisted patient up to bathroom with use of walker. Patient is s/p left knee replacement in March 2021. Incision to left knee well healed with no s/s of infection observed. Patient was able to void post ochoa catheter removal. Discussed plan for the evening and possible discharge in am. Patient verbalized complete understanding.
[2021-06-11] VITALS (7 sets, daily range): BP systolic 105–134; BP diastolic 74–83; PULSE 78–96; RESP 18–23; TEMP 36.4–36.7; O2SAT 95–96
[2021-06-11 04:19] LABS: Basophils % 0.5 %; Eosinophils # 0.2 10^3/uL (0.0-0.8); Eosinophils % 3.2 %; Hematocrit 35.1 % (37.0-47.0); Hemoglobin 11.5 g/dL (11.5-15.3); Lymphocytes # 2.9 10^3/uL (0.8-4.8); Lymphocytes % 43.9 %; Mean Corpuscular HGB Conc 32.8 g/dL (30.0-36.0); Mean Corpuscular Hemoglobin 28.8 pg (28.0-34.0); Mean Corpuscular Volume 87.8 fl (81-99); Mean Platelet Volume 10.9 fL (7.4-10.4); Monocytes # 0.7 10^3/uL (0.2-0.9); Monocytes % 10.9 %; Neutrophils # 2.66 10^3/uL (1.8-7.7); Neutrophils % 40.7 %; Nucleated Red Blood Cells % 0 %; Platelet Count 229 10^3/cmm (130-400); Red Cell Distribution Width 13.9 % (12.1-15.1); White Blood Count 6.5 10^3/uL (4.0-10.0)
[2021-06-11 04:25] LABS: Anion Gap 11.3 (5-19); Blood Urea Nitrogen 13 mg/dL (8-23); Calcium 8.3 mg/dL (8.5-10.5); Carbon Dioxide 28 mmol/L (22-29); Chloride 104 mmol/L (98-107); Glomerular Filtration Rate 159.7 mL/min (90-130); Glucose 105 mg/dL (65-115); Osmolality Calculated 290 mOsm/kg (285-295); Potassium 3.3 mmol/L (3.5-5.1); Sodium 140 mmol/L (136-145)
--- NOTE | 2021-06-11 05:40 | PC.NURSE ---
Shift Note Frequent safety and comfort rounds continue. Orders and/or nursing care completed as indicated. Patient monitored for response to intervention and treatment(s). Education provided includes post [facility] site care. Patient verbalized complete understanding. Patient had uneventful night. Dressing to right wrist remains c,d,i. No s/s of bleeding or hematoma formation observed. No other distresses noted. Will continue to monitor.
[2021-06-11 07:26] LABS: Slide Review Slide Review Perform
--- NOTE | 2021-06-11 07:27 | P.PN_ITS ---
Subjective Subjective: Interval history: Patient is doing well. Denies any chest pain or shortness of breath. Vitals/I&O/Wt Last Vital Signs Temp 97.6 F 06/11/21 03:22 Pulse 84 06/11/21 06:17 Resp 22 H 06/11/21 03:22 BP 128/75 06/11/21 03:22 Pulse Ox 93 06/10/21 19:27 06/10/21 06/11/21 06/11/21 22:59 06:59 14:59 Intake Total 336 / 776 Balance 336 / 776 Physical Exam Narrative: EXAM NARRATIVE: GENERAL: Patient is alert, awake and oriented x3. [] NECK: No jugular vein distension. [] HEENT: No cyanosis. No icterus. No pallor. [] HEART: Regular S1 and S2. No murmur, rub or gallop. [] LUNGS: Mild bilateral crackles ABDOMEN: Soft, nontender and nondistended. Positive bowel sounds. No guarding, rebound or tenderness. [] CENTRAL NERVOUS SYSTEM: Grossly nonfocal. [] EXTREMITIES: Lower extremities with 1+ edema bilaterally. Pulses palpable in the lower extremities, both dorsalis pedis and posterior tibial. [] Urinary Catheter Management^: Lopez: Cath Placed During This Visit: yes, but has since been removed by the nurse Reason for Continuing Indwelling Catheter: Accurate Measurement of Urinary Output in Critically Ill Patients Urinary Catheter Date of Insertion: 06/07/21 Urinary Catheter Time of Insertion: 16:00 Date Urinary Catheter Removed: 06/10/21 Time Urinary Catheter Discontinued: 18:15 Data : 06/11/21 03:20 06/11/21 03:20 Micro: Microbiology 06/05/21 05:45 Blood Culture - Final Blood NO GROWTH AFTER 5 DAYS 06/05/21 05:30 Blood Culture - Final Blood NO GROWTH AFTER 5 DAYS A&P Assessment and plan (1) Congestive heart failure: Status: Acute (2) Hyperlipidemia: Status: Acute Patient had new onset congestive heart failure. Patient underwent coronary angiogram that showed moderate to severe ostial ramus artery disease and significant distal LAD that was not supplying much of myocardium. These lesions do not explain her severe congestive heart failure. Nonischemic cardiomyopathy Medical therapy for now. Continue Coreg. Start low-dose lisinopril Continue oral Lasix 40 mg daily. Low-sodium diet advised Outpatient cardiology follow-up. 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 Thank you for involving us with care of this patient. She is stable to disc harge from cardiology standpoint. We will sign off. Please call with questions. Attestations Medical Necessity Statement*: Care expected to cross 2 midnights. Coding Level of Care Code Acute [employer] Operator for Jeff Su Diagnoses Congestive heart failure I50.9 Hyperlipidemia E78.5
[2021-06-11] MEDS: aspirin 81 mg EC Tablet PO (09:12)
[2021-06-11] MEDS: clopidogrel 75 mg Tablet PO (09:13)
[2021-06-11] MEDS: carvedilol 3.125 mg Tablet PO (09:13)
[2021-06-11] MEDS: potassium chloride oral liq 20 mEq/15 mL UDC 40 MEQ PO (09:13)
[2021-06-11] MEDS: FUROsemide 40 mg Tablet PO (09:13)
[2021-06-11] MEDS: lisinopril 2.5 mg Tablet PO (09:13)
[2021-06-11] MEDS: pantoprazole DR 40 mg Tablet PO (09:13)
[2021-06-11] MEDS: atorvastatin 40 mg Tablet 20 MG PO (09:13)
--- NOTE | 2021-06-11 14:02 | PM.DCS ---
Discharge Providers Date of Admission: 06/05/21 01:22 Date of Discharge: June 11, 2021 Attending Provider at Admission: Christin Murillo MD Attending Provider at Discharge: Katy Rea MD Primary Care Provider: ESTHER Blakely Diagnoses at Discharge Discharge Diagnosis (1) Congestive heart failure: Status: Acute (2) Hyperlipidemia: Status: Acute Reason for Visit Reason for Visit: LETHARGIC/ WEAK/ N/V Hospital Course Hospital Course Sammy Sherwood is a 65 year old female with chief complaints of multiple episodes of diarrhea, nausea, vomiting that started 2 days ago, unable to keep anything down orally. denies blood or mucus in stool. Denies any fever at home, however after admission here noted to have T-max of 101.3 Fahrenheit. No tenesmus. No past history of similar symptoms. Denies history of consumption of restaurant food, however patient has been consuming raw salads and onions. At home. Denies any history of consuming unpasteurized products including milk or dairy. States her meat is well cooked. Source of water at home as well water. No other sick contacts. CT abdomen shows gastroenteritis Course Initially admitted for viral gastroenteritis. DIarrhea improved few days into admission but developed flash pulmonary edema. She has no hx of HF that she was aware of. Echo showed EF 15%. She was diuresed with IV lasix. Angiogram done showed blockage which was not consistent with degree of HF she had. Possible cause myocarditis. She was dc home on medical management with close f/u with cardiology. All diarrhea workup came back negative. She was treated with cipro and flagyl during her stay inpatient which were later dc. See final progress note for further details. Physical Exam Narrative: EXAM NARRATIVE: General: Alert oriented x3, patient seen laying in bed appearing comfortable HEENT: Normocephalic, atraumatic, EOMI, on room air. Cardio: Regular rate rhythm, normal S1-S2, no murmurs rubs gallops, Respiratory: Lungs clear to auscultation today. no crackles, wheezes or ronchi GI: Abdomen soft, nontender to palpation today., not distended, bowel sounds normoactive Behavior: Appropriate and cooperative Extremities: no edema, no cyanosis Urinary Catheter Management^: Lopez: Cath Placed During This Visit: yes, but has since been removed by the nurse Reason for Continuing Indwelling Catheter: Accurate Measurement of Urinary Output in Critically Ill Patients Urinary Catheter Date of Insertion: 06/07/21 Urinary Catheter Time of Insertion: 16:00 Date Urinary Catheter Removed: 06/10/21 Time Urinary Catheter Discontinued: 18:15 Discharge Data Data Completed and Pending: Completed Studies During Hospitalization Category Date Time Status CT abdomen pelvis w con* [id number] Urge nt Cat Scan 06/04/21 19:[address] angio chest PE protcl [id number] Stat Cat Scan 06/07/21 14:14 Completed XR chest 1V mariella ble [id number] Stat Exams 06/07/21 11:47 Completed CV. echo complete * [id number] Routine Ultrasound 06/10/21 12:50 Completed CV. echo limited [id number] Stat Ultrasound 06/07/21 15:33 Completed Pending at discharge Category Date Time Status CLIENT SPECIALIST request for service Routin e Exams 06/10/21 09:01 Taken Labs from last 24 hours 06/11/21 06/11/21 03:20 03:20 WBC 6.5 RBC 4.00 L Hgb 11.5 Hct 35.1 L MCV 87.8 MCH 28.8 MCHC 32.8 RDW 13.9 Plt Count 229 MPV 10.9 H Neut % (Auto) 40.7 Lymph % (Auto) 43.9 [place] % (Auto) 10.9 Eos % (Auto) 3.2 Baso % (Auto) 0.5 Neut # (Auto) 2.66 Lymph # (Auto) 2.9 [place] # (Auto) 0.7 Eos # (Auto) 0.2 Baso # (Auto) 0.0 Nucleated RBC % (a uto) 0 Nucleated RBCs # 0.0 Sodium 140 Potassium 3.3 L Chloride 104 Carbon Dioxide 28 Anion Gap 11.3 BUN 13 Creatinine 0.4 L GFR Calculation 159.7 H Glucose 105 Calculated Osmolal ity 290 Calcium 8.3 L Vitals: Last Vital Signs Temp 98.1 F 06/11/21 12:00 Pulse 96 06/11/21 12:00 Resp 19 H 06/11/21 12:00 BP 134/83 06/11/21 12:00 Pulse Ox 95 06/11/21 12:00 Discharge Plan Discharge Patient Disposition: Home Condition: Stable Prescriptions: New aspirin 81 mg Tablet,Delayed Release (Dr/Ec) 81 mg PO DAILY 30 Days Qty: 30 RF: 0 furosemide 40 mg Tablet 40 mg PO DAILY@0800 30 Days Qty: 30 RF: 0 carvedilol 6.25 mg Tablet 6.25 mg PO BID 30 Days Qty: 60 RF: 0 clopidogrel 75 mg Tablet 75 mg PO DAILY 30 Days Qty: 30 RF: 0 lisinopril 2.5 mg Tablet 2.5 mg PO DAILY 30 Days Qty: 30 RF: 0 potassium chloride 10 mEq tablet extended release 10 meq PO DAILY 30 Days Qty: 30 RF: 0 Continued alendronate [Fosamax] 70 mg tablet 70 mg PO .weekly RF: 0 omeprazole 20 mg capsule,delayed release(DR/EC) 20 mg PO DAILY RF: 0 oxycodone 5 mg tablet 5 mg PO Q4H PRN (Reason: pain) 7 Days Qty: 30 RF: 0 Changed rosuvastatin 10 mg tablet 20 mg PO DAILY 30 Days Qty: 60 RF: 0 Held lutein 20 mg capsule 20 mg PO DAILY RF: 0 Hold Instructions: see pcp Discharge Orders: Discharge Order (Routine); Ordered 06/11/21 Ordered By: Katy Rea Referrals: Bc Mitchell M.D [Physician] - 07/21/21 1:45 pm (You have a cardiology followup with Dr. Mitchell at [facility] on July 21 at 1:45pm) Zo Nails FNP [Nurse Practitioner] - 06/17/21 2:45 pm (You have a post procedure followup with ESTHER Henderson at [facility] on June 17 at 2:45pm) Discharge Diet: Cardiac, Low Salt and Low Cholesterol Discharge Activity: Increase activity as tolerated Patient Instructions: Lisinopril (By mouth), Clopidogrel (By mouth), Heart Failure (DC) Activity Restrictions/Additional Instructions: Please stop by the hospital during Monday daytime to have BMP Blood work done. You do not need an appointment for this. Please check in at admissions prior to going to the Lab. Thank you. Discharge Attestations Time Spent in Discharge Care*: less than 30 min Quality Metrics Clinical Quality Measures During this hospital stay, did patient experience: None Coding Level of Care Code Acute Chg FW DC note Diagnoses Congestive heart failure I50.9 Hyperlipidemia E78.5
== END 2021-06-11 15:45 | disposition home or self-care (01) | DRG 391 ==
LOC: ER 22:56 → MEDSURG 23:08 → CSU 06-10 12:09
PROVIDERS: Internal Medicine; Admitting Provider Student in an Organized Health Care Education/Training Program; Emergency Provider Emergency Medicine; PCP Nurse Practitioner Family; Visit Provider Internal Medicine
PROC: 4A023N8 Measurement of Cardiac Sampling and Pressure, Bilateral, Percutaneous Approach (ICD-10-PCS; principal; 2021-06-10 10:00)
DX: K52.9 Noninfective gastroenteritis and colitis, unspecified (principal); I50.21 Acute systolic (congestive) heart failure; N17.9 Acute kidney failure, unspecified; I42.8 Other cardiomyopathies; E86.0 Dehydration; K21.9 Gastro-esophageal reflux disease without esophagitis; E78.5 Hyperlipidemia, unspecified; F41.0 Panic disorder [episodic paroxysmal anxiety]; I25.10 Atherosclerotic heart disease of native coronary artery without angina pectoris; Z79.891 Long term (current) use of opiate analgesic
CPT/HCPCS: 36415; 51702; 71045; 71275; 74177; 80048; 80053; 80061; 81001; 82803; 83036; 83605; 83630; 83690; 83735; 83880; 84100; 84145; 84484; 85025; 85378; 85651; 85999; 86140; 87040; 87426; 87493; 87506; 93005; 93306; 93308; 93453; 94640; 96361; 96372; 96374; 99285; C1751; C1769; C1887; C1894; G0378; J0696; J1644; J1650; J1940; J2060; J2250; J2370; J2765; J3010; J3480; J3490; J7030; J7050; Q0163; Q9967; S0030

== ENCOUNTER 2021-06-14 12:48 | Outpatient (CLI) | payer MEDICARE, SELFPAY ==
[2021-06-14 13:51] LABS: Anion Gap 14.5 (5-19); Blood Urea Nitrogen 11 mg/dL (8-23); Calcium 9.2 mg/dL (8.5-10.5); Carbon Dioxide 27 mmol/L (22-29); Chloride 97 mmol/L (98-107); Glomerular Filtration Rate 123.4 mL/min (90-130); Glucose 100 mg/dL (65-115); Osmolality Calculated 277 mOsm/kg (285-295); Potassium 4.5 mmol/L (3.5-5.1); Sodium 134 mmol/L (136-145)
== END 2021-06-14 12:49 | disposition home or self-care (01) ==
LOC: LAB 12:52
PROVIDERS: PCP Nurse Practitioner Family; Visit Provider Internal Medicine
DX: I50.9 Heart failure, unspecified (principal)
CPT/HCPCS: 36415; 80048

== ENCOUNTER → 2021-07-21 14:49 | Outpatient (BNVA) | payer MEDICARE, MEDICAID, SELFPAY | PROVIDERS: PCP Nurse Practitioner Family; Visit Provider Internal Medicine | DX: I50.9 Heart failure, unspecified (principal); R06.02 Shortness of breath; I25.10 Atherosclerotic heart disease of native coronary artery without angina pectoris; E78.5 Hyperlipidemia, unspecified | CPT/HCPCS: 80048; 83880 ==

== ENCOUNTER → 2021-10-20 14:40 | Outpatient (BNVA) | payer MEDICARE, MEDICAID, SELFPAY | PROVIDERS: PCP Nurse Practitioner Family; Visit Provider Internal Medicine | DX: I50.9 Heart failure, unspecified (principal); I25.10 Atherosclerotic heart disease of native coronary artery without angina pectoris; R06.02 Shortness of breath | CPT/HCPCS: 99214 ==

== ENCOUNTER 2021-11-04 06:01 | Outpatient (CLI) | payer MEDICARE, MEDICAID, SELFPAY ==
--- NOTE | 2021-11-04 06:15 | USCV_ITS ---
Sammy Sherwood Age: 65 Gender: F : 1955 Exam Date: 11/04/2021 06:25 Ordering Phys: Bc Mitchell M.D ([email or web address]) Technologist: [place] [facility] [place]: ef BP: 125 / 75 HR: 89 Rhythm: Sinus Technical Quality: Adequate MEASUREMENTS (Male / Female) Normal Values 2D ECHO LV Diastolic Diameter PLAX 5.5 cm 4.2 - 5.9 / 3.9 - 5.3 cm LV Systolic Diameter PLAX 4.4 cm IVS Diastolic Thickness 0.9 cm 0.6 - 1.0 / 0.6 - 0.9 cm IVS Systolic Thickness 1.6 cm LVPW Diastolic Thickness 1.0 cm 0.6 - 1.0 / 0.6 - 0.9 cm LVPW Systolic Thickness 1.3 cm LVOT Diameter 2.0 cm LV Ejection Fraction 2D Teich 40.2 % LV Ejection Fraction MOD 2C 30.5 % LV Ejection Fraction 2C AL 30.4 % LA Diameter 3.5 cm M-MODE Aortic Annulus Diameter 3.5 cm LA Ao Ratio MM 1.1 MV E Point Septal Separation 1.0 cm FINDINGS Left Ventricle Right Ventricle Right Atrium Left Atrium Mitral Valve Aortic Valve Tricuspid Valve Pulmonic Valve Pericardium Aorta CONCLUSIONS This is a limited echocardiogram performed to assess LV systolic function. LV systolic function is severely reduced with EF of 25-30%. Compared to prior echocardiogram from 06/10/2021, LV systolic function has not improved significantly Bc Mitchell MD (Electronically Signed) Final Date: 12 November 2021 13:05 S
[2021-11-04] MEDS: perflutren protein-a microsphr 0.22 mg/mL SDV 3 mL IV (07:06)
== END 2021-11-04 06:02 | disposition home or self-care (01) ==
LOC: RAD 06:02
PROVIDERS: PCP Nurse Practitioner Family; Visit Provider Internal Medicine
DX: R06.02 Shortness of breath (principal)
CPT/HCPCS: C8924

== ENCOUNTER → 2022-04-20 14:42 | Outpatient (BNVA) | payer MEDICARE, MEDICAID, SELFPAY | PROVIDERS: PCP Nurse Practitioner Family; Visit Provider Internal Medicine | DX: I25.10 Atherosclerotic heart disease of native coronary artery without angina pectoris (principal); E78.5 Hyperlipidemia, unspecified; I50.9 Heart failure, unspecified; Z96.652 Presence of left artificial knee joint | CPT/HCPCS: 99214 ==

== ENCOUNTER 2022-04-22 11:13 | Outpatient (CLI) | payer MEDICARE, MEDICAID, SELFPAY ==
[2022-04-22 12:04] LABS: Chol HDL Ratio 2.65 mg/dL (0.0-4.40); Cholesterol 130 mg/dL (0-200); HDL Cholesterol 49 mg/dL (60-100); LDL Cholesterol Calculated 41 mg/dL (50-129); LDL HDL Ratio 0.84 RATIO (0.00-3.22); Triglycerides 198 mg/dL (0-150)
== END 2022-04-22 11:14 | disposition home or self-care (01) ==
PROVIDERS: PCP Nurse Practitioner Family; Visit Provider Internal Medicine
DX: E78.5 Hyperlipidemia, unspecified (principal)
CPT/HCPCS: 80061

== ENCOUNTER 2022-06-02 10:47 | Inpatient (IN) | payer MEDICARE, MEDICAID, SELFPAY ==
[2022-06-02 11:07] VITALS: BP 112/58; PULSE 72; RESP 18; O2SAT 97
[2022-06-02 11:35] LABS: Add Urine Microscopic? NO; Charge for UA Resulting for Rev
[2022-06-02 11:37] LABS: Bilirubin Urine Neg (Negative); Blood Urine Neg (Negative); Glucose Urine UA Norm (Normal); Ketones Urine Negative (Negative); Leukocyte Esterase Urine Negative (Negative); Nitrate Urine Negative (Negative); Protein Urine Neg (Negative); Specific Gravity, Urine 1.015 (1.005-1.030); Urine Appearance Clear (CLEAR); Urine Color Yellow (Yellow); Urobilinogen Urine Neg (Negative); pH Urine 5 (5-7)
[2022-06-02 12:27] LABS: Basophils % 0.3 %; Eosinophils # 0.1 10^3/uL (0.0-0.8); Eosinophils % 0.8 %; Hematocrit 38.3 % (37.0-47.0); Hemoglobin 11.8 g/dL (11.5-15.3); Lymphocytes # 1.5 10^3/uL (0.8-4.8); Lymphocytes % 14.3 %; Mean Corpuscular HGB Conc 30.8 g/dL (30.0-36.0); Mean Corpuscular Volume 94.1 fl (81-99); Mean Platelet Volume 9.8 fL (7.4-10.4); Monocytes # 0.5 10^3/uL (0.2-0.9); Monocytes % 4.3 %; Neutrophils # 8.28 10^3/uL (1.8-7.7); Neutrophils % 79.8 %; Nucleated Red Blood Cells % 0 %; Platelet Count 248 10^3/cmm (130-400); Red Blood Count 4.07 10^6/uL (4.1-5.3); Red Cell Distribution Width 13.8 % (12.1-15.1); White Blood Count 10.4 10^3/uL (4.0-10.0)
[2022-06-02 12:45] LABS: Alanine Aminotransferase 11 U/L (0-33); Albumin Level 3.8 g/dL (3.5-5.2); Alkaline Phosphatase 73 U/L (35-105); Anion Gap 16.2 (5-19); Aspartate Amino Transferase 14 U/L (0-32); Blood Urea Nitrogen 13 mg/dL (8-23); Calcium 9.5 mg/dL (8.5-10.5); Carbon Dioxide 24 mmol/L (22-29); Chloride 100 mmol/L (98-107); Glomerular Filtration Rate 83.5 mL/min (90-130); Glucose 130 mg/dL (65-115); Lipase 23 U/L (13-60); Osmolality Calculated 284 mOsm/kg (285-295); Potassium 4.2 mmol/L (3.5-5.1); Sodium 136 mmol/L (136-145); Total Bilirubin 0.3 mg/dL (0.15-1.2); Total Protein 7.8 g/dL (6.6-8.7)
--- NOTE | 2022-06-02 13:11 | CT_ITS ---
WS: [id number] CT ABDOMEN PELVIS TECHNIQUE: Contrast-enhanced CT of the abdomen and pelvis with coronal and sagittal reformatted image s. CLINICAL INFORMATION: abd pain COMPARISON: CT June 04, 2021 DLP: 733.[address] scans at [facility] use at least one of these dose optimization techniques: automated e xposure control; mA and/or kV adjustment per patient size (includes targeted exams where dose is matc hed to clinical indication); or iterative reconstruction. FINDINGS: Diffuse thickening of the sigmoid colon with surrounding inflammatory stranding and edema consistent with acute diverticulitis. Small peripherally enhancing fluid collection adjacent to the sigmoid colo n measuring 3.4 x 2.1 CM. No associated air. Mild diffuse fatty infiltration of the liver. Cholecystectomy. Normal portal vein and splenic vein. S pleen. Small esophageal hiatal hernia. Lung bases are well aerated. Cardiomegaly. Normal caliber abdo shaista aorta. Aortic calcification. Adrenal glands are normal. Normal renal parenchymal enhancement. N o hydronephrosis. CT/CT abdomen pelvis w con* [id number] IMPRESSION: 1. Acute diverticulitis with diffuse thickening with enhancement and inflammat ory stranding about the sigmoid colon. 2. Small contained peripheral enhancing fluid collection along the anterior si gmoid colon posterior to the uterus measuring 3.4 x 2.1 CM suspicious for a sma ll amount of phlegmon/developing abscess . No associated air. This is too small to drain percutaneously. Recommend interval follow-up to resolution. 3. Small esophageal hiatal hernia. 4. Prior cholecystectomy. 5. No other acute findings Notified Elizabeth Ding at 06/02/2022 4:01 PM.
[2022-06-02 14:37] VITALS: PULSE 75; RESP 18; O2SAT 98
[2022-06-02 15:00] VITALS: BP 110/62; PULSE 78; RESP 18; O2SAT 99
--- NOTE | 2022-06-02 15:06 | PC.NURSE ---
pt to CT at this time
[2022-06-02] MEDS: iohexol 350 mg/mL 100 mL Btl IV (15:17)
--- NOTE | 2022-06-02 17:06 | W.ED.GENADLT ---
HPI - General Adult General: Chief complaint: General Medical Stated complaint: urinary pain Time Seen by Provider: 06/02/22 10:58 History of Present Illness: 66 yo female patient presents to the ER with worsening abd pain and back pain. Pt states she has been running a fever subjectively at home. Pt denies any vomiting but c/o nausea. Pt denies any urinary symptoms. Associated symptoms: Reports nausea; Deny chest pain, confusion, diaphoresis, dyspnea, headache(s), malaise, rash, palpitations, syncope or vomiting Review of Systems Const: Reports: fever(s); Denies: chills, body aches, change in appetite, change in weight, fatigue, malaise or diaphoresis Eyes: Denies: change in vision, blurry vision, blind spots, photophobia, eye discomfort, eye discharge, eye redness, floaters or seeing flashes ENMT: Denies: throat pain, uvular edema, enlarged tonsils, odynophagia, hoarseness, mouth pain, swelling of lips/tongue, oral sores, bleeding gums, dental pain, dry mouth, ear or mastoid pain, ear discharge, change in hearing, tinnitus, disequilibrium, nasal discharge, nasal congestion, post nasal drip or sinus pain Card: Denies: chest pain, palpitations, irregular heart rhythm, edema, swelling of feet/ankles, lightheadedness, syncope, pre-syncope, dyspnea on exertion, orthopnea, leg pain with exertion or acrocyanosis Resp: Denies: dyspnea, productive cough, non-productive cough, wheezing, stridor, pain on inspiration, change in phlegm color, hemoptysis or chest congestion GI: Reports: abdominal pain and nausea; Denies: vomiting, hematemesis, dysphagia, diarrhea, constipation, GI cramping, change in bowel habits or rectal pain : Denies: flank pain, difficulty voiding, dysuria, urinary frequency, urinary urgency, urinary hesitancy or hematuria Musc: Reports: back pain; Denies: neck pain, extremity pain, extremity swelling, joint pain, joint swelling, joint redness, joint warmth or deformity Skin/Breast: Denies: rash, pruritus, erythema, sores, new lesions, changes in skin color or dry skin Neuro: Denies: headache(s), numbness in extremities, weakness in extremities, sensory changes, lack of coordination, difficulty walking, frequent falls, dizziness, vertigo, confusion, behavioral changes, Slurred speech present, difficulty communicating thoughts or seizure-like activity Psych: Denies: anxiety, depression, suicidal ideation or homicidal ideation Endo: Denies: polyuria, polydipsia, tired all the time, cold intolerance, excessive sweating, flushing, hot flashes or heat intolerance Jeremias/Lymph: Denies: easy bruising, easy bleeding, petechiae, purpura, enlarged lymph nodes or tender lymph nodes All/Imm: Denies: urticaria, throat swelling, tongue swelling, facial swelling, acute wheezing or itchy eyes PFSH ED PFSH: Medical History Coronary artery disease GERD (gastroesophageal reflux disease) Hyperlipidemia Social History Smoking and tobacco status: never smoked Alcohol intake: never Physical Exam Const: COMMON NORMALS: no acute distress, patient oriented x3, healthy appearing, alert and well nourished GENERAL APPEARANCE: cooperative, comfortable, well kempt and well developed; not ill appearing ORIENTATION/CONSCIOUSNESS: Yes awake, Yes oriented to person, Yes oriented to place and Yes oriented to time HENMT: COMMON NORMALS: normocephalic, atraumatic, hearing grossly normal bilaterally, external ears normal, EAC's normal, TM's normal bilaterally, Normal external nose present, Normal nasal mucous membranes and turbinates present and moist oral mucous membranes HEAD & SCALP: normal to inspection, normocephalic and atraumatic FACE & SINUS: normal facial exam, sinuses nontender and face symmetric NOSE: Normal external nose present, Normal nares present, Normal nasal mucous membranes and turbinates present, No nasal discharge present and Abnormal external nose present EXTERNAL EAR: Yes external ears normal and Yes mastoids normal EXTERNAL AUDITORY CANAL: EAC's normal TYMPANIC MEMBRANE: TM's normal bilaterally MOUTH: Normal oral and palatal mucosa present, lip normal, tongue normal and Normal salivary glands and ducts present THROAT: no uvular edema Eye: COMMON NORMALS: Equal, round and reactive pupils present, EOMs intact bilaterally, conjunctivae normal, no scleral icterus and no papilledema GENERAL EYE: appearance normal, both eyes and all related structures EYELID: eyelids normal CONJUNCTIVA: Yes conjunctivae normal SCLERA: sclerae normal CORNEA: Yes corneas normal PUPIL: Yes Equal, round and reactive pupils present DIRECT OPHTHALMOSCOPY: Yes no papilledema Neck/C-Spine: COMMON NORMALS: full ROM, no lymphadenopathy, supple, no meningeal signs, no JVD and Thyroid normal GENERAL: Yes normal visual inspection and Yes trachea midline THYROID: Thyroid normal CERVICAL SPINE: Yes cervical ROM normal Lymph: LYMPHATIC: no lymphadenopathy noted and no lymphedema noted Chest: COMMONS NORMALS: normal inspection of the chest and normal palpation of entire chest wall Resp: COMMON NORMALS: normal respiratory effort, No retractions, No use of accessory muscles and clear to auscultation bilaterally EFFORT & INSPECTION: Yes able to speak in complete sentences and Yes symmetric chest movement AUSCULTATION: clear to auscultation bilaterally Cardio: COMMON NORMALS: no JVD, regular rate and regular rhythm RATE: regular rate RHYTHM: regular rhythm GI: COMMON NORMALS: Normal to inspection, nondistended, normoactive bowel sounds present, Soft to palpation, No hepatosplenomegaly present, no masses and no bruits INSPECTION: Yes normal to inspection AUSCULTATION: Yes normoactive bowel sounds PALPATION: Yes Soft to palpation and Yes No hepatosplenomegaly present PERCUSSION: normal to percussion RECTAL EXAM: deferred : COMMON NORMALS: Yes no CVA tenderness and Yes normal bimanual exam BLADDER/KIDNEY EXAM: Yes no CVA tenderness BIMANUAL EXAM - VAGINA & UTERUS: Yes normal bimanual exam Back/Pelvis: COMMON NORMALS: no CVA tenderness, thoracic and lumbar spine normal to inspection, no thoracic nor lumbar tenderness, thoraco-lumbar ROM normal and straight leg raise negative bilaterally THORACIC SPINE/UPPER BACK: Yes normal to inspection LUMBAR SPINE/LOWER BACK: Yes normal to inspection Extremity: COMMON NORMALS: normal to inspection, full ROM and capillary refill normal GENERAL: Yes normal exam except as noted Neuro: COMMON NORMALS: patient oriented x3, CN's II-XII intact bilaterally, moves all extremities, no focal motor deficits, no sensory deficits noted, deep tendon reflexes 2+ bilaterally and gait normal SENSORIUM/ORIENTATION: Yes alert, Yes oriented to person, Yes oriented to place and Yes oriented to time MENINGEAL SIGNS: Yes no meningeal signs CRANIAL NERVES: Yes CN normal except as noted SPEECH: speech normal GAIT: Yes Normal gait present SENSORY EXAM: Yes extremities MOTOR EXAM: 5/5 motor strength present throughout Psych: COMMON NORMALS: mental status grossly normal, Normal thought process present, cooperative, normal affect, speech normal, activity/motor behavior normal, denies hallucinations, denies homicidal ideation and denies suicidal ideation APPEARANCE: Yes grossly normal and Yes well kempt ATTITUDE: Yes calm ACTIVITY/MOTOR BEHAVIOR: Yes appropriate eye contact SPEECH: Yes normal speech THOUGHT PROCESS: Normal thought process present THOUGHT CONTENT: Yes Normal thought content present ATTENTION/CONCENTRATION: Yes attention grossly intact MEMORY/COGNITION: Yes memory grossly intact INSIGHT: Good insight present (Psych) JUDGEMENT: Good judgement present (Psych) Skin: COMMON NORMALS: no rashes or lesions noted, no wounds, turgor normal, no jaundice, no petechiae and no mottling GENERAL SKIN EXAM: no rashes or lesions noted and turgor normal Course Vital Signs: Vital signs: Vital Signs Pulse Rate 78 06/02/22 15:00 Respiratory Rate 18 06/02/22 15:00 Blood Pressure 110/62 06/02/22 15:00 Pulse Oximetry 99 06/02/22 15:00 Oxygen Delivery Me thod 06/02/22 15:00 MDM - General Adult Medical Decision Making Patient is well appearing non toxic and in no acute distress. 66 yo female patient presents to the ER with worsening abd pain and back pain. Pt states she has been running a fever subjectively at home. Pt denies any vomiting but c/o nausea. Pt denies any urinary symptoms. PT CT reveals acute diverticulitis with concerns for early abscess. I called and consulted with surgeon who will consult with patient. Zosyn started after blood culters collected will admit at this time Lab Data : 06/02/22 12:15 06/02/22 12:15 Radiology Impressions Abdomen/Pelvis CT 06/02/22 13:11 IMPRESSION: 1. Acute diverticulitis with diffuse thickening with enhancement and inflammatory stranding about the sigmoid colon. 2. Small contained peripheral enhancing fluid collection along the anterior sigmoid colon posterior to the uterus measuring 3.4 x 2.1 CM suspicious for a small amount of phlegmon/developing abscess . No associated air. This is too small to drain percutaneously. Recommend interval follow-up to resolution. 3. Small esophageal hiatal hernia. 4. Prior cholecystectomy. 5. No other acute findings Notified Elizabeth Ding at 06/02/2022 4:01 PM. Laboratory Results WBC 10.4 10^3/uL (4.0-10.0) H 06/02/22 12:15 RBC 4.07 10^6/uL (4.1-5.3) L 06/02/22 12:15 Hgb 11.8 g/dL (11.5-15.3) 06/02/22 12:15 Hct 38.3 % (37.0-47.0) 06/02/22 12:15 MCV 94.1 fl (81-99) 06/02/22 12:15 MCH 29.0 pg (28.0-34.0) 06/02/22 12:15 MCHC 30.8 g/dL (30.0-36.0) 06/02/22 12:15 RDW 13.8 % (12.1-15.1) 06/02/22 12:15 Plt Count 248 10^3/cmm (130-400) 06/02/22 12:15 MPV 9.8 fL (7.4-10.4) 06/02/22 12:15 Neut % (Auto) 79.8 % 06/02/22 12:15 Lymph % (Auto) 14.3 % 06/02/22 12:15 [place] % (Auto) 4.3 % 06/02/22 12:15 Eos % (Auto) 0.8 % 06/02/22 12:15 Baso % (Auto) 0.3 % 06/02/22 12:15 Neut # (Auto) 8.28 10^3/uL (1.8-7.7) H 06/02/22 12:15 Lymph # (Auto) 1.5 10^3/uL (0.8-4.8) 06/02/22 12:15 [place] # (Auto) 0.5 10^3/uL (0.2-0.9) 06/02/22 12:15 Eos # (Auto) 0.1 10^3/uL (0.0-0.8) 06/02/22 12:15 Baso # (Auto) 0.0 10^3/uL (0.0-0.1) 06/02/22 12:15 Nucleated RBC % (auto) 0 % 06/02/22 12:15 Nucleated RBCs # 0.0 /100WBC 06/02/22 12:15 Sodium 136 mmol/L (136-145) 06/02/22 12:15 Potassium 4.2 mmol/L (3.5-5.1) 06/02/22 12:15 Chloride 100 mmol/L (98-107) 06/02/22 12:15 Carbon Dioxide 24 mmol/L (22-29) 06/02/22 12:15 Anion Gap 16.2 (5-19) 06/02/22 12:15 BUN 13 mg/dL (8-23) 06/02/22 12:15 Creatinine 0.7 mg/dL (0.5-0.9) 06/02/22 12:15 GFR Calculation 83.5 mL/min (90-130) L 06/02/22 12:15 Glucose 130 mg/dL (65-115) H 06/02/22 12:15 Calculated Osmolality 284 mOsm/kg (285-295) L 06/02/22 12:15 Calcium 9.5 mg/dL (8.5-10.5) 06/02/22 12:15 Total Bilirubin 0.3 mg/dL (0.15-1.2) 06/02/22 12:15 AST 14 U/L (0-32) 06/02/22 12:15 ALT 11 U/L (0-33) 06/02/22 12:15 Alkaline Phosphatase 73 U/L (35-105) 06/02/22 12:15 Total Protein 7.8 g/dL (6.6-8.7) 06/02/22 12:15 Albumin 3.8 g/dL (3.5-5.2) 06/02/22 12:15 Globulin 4.0 g/dL (1.3-4.6) 06/02/22 12:15 Lipase 23 U/L (13-60) 06/02/22 12:15 Urine Color Yellow (Yellow) 06/02/22 11:30 Urine Appearance Clear (CLEAR) 06/02/22 11:30 Urine pH 5 (5-7) 06/02/22 11:30 Ur Specific [place] 1.015 (1.005-1.030) 06/02/22 11:30 Urine Protein Neg (Negative) 06/02/22 11:30 Urine Glucose (UA) Norm (Normal) 06/02/22 11:30 Urine Ketones Negative (Negative) 06/02/22 11:30 Urine Blood Neg (Negative) 06/02/22 11:30 Urine Nitrate Negative (Negative) 06/02/22 11:30 Urine Bilirubin Neg (Negative) 06/02/22 11:30 Urine Urobilinogen Neg mg/dL (Negative) 06/02/22 11:30 Ur Leukocyte Esterase Negative (Negative) 06/02/22 11:30 Discharge Plan Discharge Patient Disposition: Admitted As Inpatient Clinical Impression: Acute diverticulitis Condition: Stable Discharge Diet: Advance as tolerated Discharge Activity: Increase activity as tolerated 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
--- NOTE | 2022-06-02 17:12 | PM.HP ---
Providers/Chief Complaint Primary Care Provider: ESTHER Blakely Chief Complaint: urinary pain History of Present Illness Sammy Sherwood is a 66 year old female with past medical history of nonischemic cardiomyopathy with last known EF of 25 to 30%, cardiac catheterization done in 2020 showing distal moderate to severe ostial ramus stenosis and distal LAD stenosis which was treated medically who has been referred for DOG OR ANIMAL SITTER-D placement at [facility] presented to the ER today with abdominal pain radiating to back. As per the patient she has been having abdominal pain for last 4 days. She has not had a bowel movement for last 4 days so she took a bowel prep as an outpatient after which she had huge bowel movement but her pain continued so she presented to the ER today. She has not noticed any fevers, dizziness, difficulty in breathing or chest pain at home. In the ER CT abdomen pelvis was done which showed acute diverticulitis with diffuse thickening and enhancement at sigmoid colon with small amount of developing abscess posterior to the uterus without any associated air. Medicine was consulted for admission and further management. Surgery has been consulted from the ER. Review of Systems General: Reports: 10 or more systems reviewed and unremarkable except in HPI and below Const: Denies: fever(s), chills, body aches, change in appetite, change in weight, malaise, night sweats, diaphoresis, change in sleep pattern, daytime sleepiness or snoring Eyes: Denies: change in vision, blurry vision, photophobia, eye discomfort or eye discharge ENMT: Denies: throat pain, enlarged tonsils, hoarseness, mouth pain, oral sores, dry mouth, tinnitus, nasal congestion or post nasal drip Card: Denies: chest pain, palpitations, irregular heart rhythm, edema, swelling of feet/ankles, lightheadedness, syncope, pre-syncope, dyspnea on exertion, orthopnea, leg pain with exertion or acrocyanosis Resp: Denies: dyspnea, productive cough, non-productive cough, wheezing, stridor, pain on inspiration, change in phlegm color, hemoptysis or chest congestion GI: Denies: abdominal pain, nausea, vomiting, hematemesis, coffee ground emesis, dysphagia, heartburn, diarrhea, constipation, bloating, GI cramping, change in bowel habits, pain on defecation, hematochezia or melena : Denies: flank pain, dysuria, urinary frequency, urinary urgency, urinary hesitancy, nocturia or hematuria Musc: Denies: neck pain, back pain, extremity pain, joint pain, joint swelling, joint redness, joint stiffness or limited range of motion Neuro: Denies: headache(s), numbness in extremities, weakness in extremities, sensory changes, lack of coordination, difficulty walking, frequent falls, dizziness, vertigo, confusion, Slurred speech present, difficulty communicating thoughts or seizure-like activity Psych: Denies: anxiety, depression, mood swings, panic attacks, hopelessness or irritability Endo: Denies: polyuria, polydipsia, tired all the time, cold intolerance, excessive sweating, flushing or heat intolerance Jeremias/Lymph: Denies: easy bruising or easy bleeding All/Imm: Denies: tongue swelling, facial swelling or acute wheezing Medications/Allergies Home Medications Medication Instructions Recorded Confirmed Last Taken Type omeprazole 20 mg capsule,delayed 20 mg PO DAILY 12/29/20 06/02/22 06/02/22 History release alendronate 70 mg tablet (Fosamax) 70 mg PO .weekly 05/18/21 06/02/22 05/29/22 History aspirin 81 mg tablet,delayed 81 mg PO DAILY 07/21/21 06/02/22 06/02/22 History release (Adult Aspirin Regimen) rosuvastatin 20 mg tablet 20 mg PO DAILY #90 tabs 12/09/21 06/02/22 06/02/22 Rx carvedilol 6.25 mg tablet 6.25 mg PO BID #180 tabs 01/04/22 06/02/22 06/02/22 Rx clopidogrel 75 mg tablet 75 mg PO DAILY #90 tabs 04/20/22 06/02/22 06/02/22 Rx coenzyme Q10 200 mg capsule 200 mg PO DAILY 04/20/22 06/02/22 06/02/22 History furosemide 40 mg tablet 40 mg PO DAILY@0800 #90 tabs 04/20/22 06/02/22 06/02/22 Rx lisinopril 10 mg tablet 10 mg PO BID #180 tabs 04/20/22 06/02/22 06/02/22 Rx potassium chloride 10 mEq 10 meq PO DAILY #90 tabs 04/20/22 06/02/22 06/02/22 Rx tablet,extended release Fish Amox 1,500 mg PO DAILY 06/02/22 06/02/22 06/01/22 History hydrocortisone 2.5 % topical cream 1 applic topical TID #28 grams 06/02/22 Unknown Rx [id number] 250 mg-dha 90 1 cap PO DAILY 06/02/22 06/02/22 06/02/22 History mg-epa 160 [id number]-[id number] capsule (Ocuvite Adult 50 Plus) nystatin 100,000 unit/gram topical 1 applic topical BID 06/02/22 06/02/22 Unknown History powder (Nystop) Allergies Allergy/AdvReac Type Severity Reaction Status Date / Time No Known Allergies Allergy Verified 06/02/22 11:52 PFSH Acute PFSH: Medical History (Updated 06/02/22 @ 17:17 by Damian Wilde MD) Combined systolic and diastolic congestive heart failure, NYHA class 2 Coronary artery disease GERD (gastroesophageal reflux disease) Hyperlipidemia Nonischemic cardiomyopathy Social History Smoking and tobacco status: never smoked Alcohol intake: never Vitals/I&O/Wt Last Vital Signs Pulse 78 06/02/22 15:00 Resp 18 06/02/22 15:00 BP 110/62 06/02/22 15:00 Pulse Ox 99 06/02/22 15:00 O2 Del Method 06/02/22 15:00 Physical Exam Narrative: General: No acute distress, AO x3 HEENT: PERRLA, pupils bilaterally equal and reactive Chest: Normal vesicular breath sounds, no added sounds, equal good air entry bilaterally CVS: S1-S2 regular, no murmurs, no tachycardia, no gallops, no rubs Abdomen: Soft, nontender, no organomegaly, bowel sounds present Neuro: No focal deficits, no facial deformity, AO x3, power 5/5 in all limbs Data : 06/03/22 04:40 06/03/22 04:40 A&P Assessment and plan (1) Perforation and abscess of large intestine concurrent with and due to diverticulitis: Seen on the CT scan. Surgery has been consulted from the ER. NPO. Conservative treatment for now. Serial abdominal examination. Check blood culture. Start on Zosyn. Check MRSA swab. If MRSA is positive then will add vancomycin. Gentle IV hydration with normal saline at 50 cc/h. Watch for fluid overload. (2) Nonischemic cardiomyopathy: (3) Combined systolic and diastolic congestive heart failure, NYHA class 2: Last echocardiogram from October 2021 shows an EF of 25 to 30%. Global LV hypokinesia, grade 1 diastolic dysfunction, mild MR. Fairly compensated for now. Will continue to monitor for fluid status. Hold off on Lasix for now. (4) Coronary artery disease: Takes aspirin, Plavix and statin at home. Currently NPO. No chest pain. Cardiac catheterization done in 2020 showed moderate to severe ostial ramus artery disease and severe distalLAD stenosis. Continue to monitor. (5) Hyperlipidemia: Check A1c, lipid panel. Plan Full code. Protonix for PUD prophylaxis. SCDs for DVT prophylaxis, heparin for DVT prophylaxis. NPO. 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
--- NOTE | 2022-06-02 17:32 | P.CONIM_ITS ---
Providers/Reason For Consult Consulting Physician/Specialty*: General Surgery/Hugo Deleon MD, FACS, RPVI Reason for Consult*: Diverticulitis Primary Care Provider: ESTHER Blakely History of Present Illness History of Present Illness Sammy Sherwood is a 66 year old female She developed abdominal pain for about a week. She had similar episodes of pain several times. First time about 3 years ago. The pain was located in the lower abdomen, was constant, she has associated fever. Denies nausea, vomiting, diarrhea, dysuria, pneumaturia. The condition did not improve and she decided to seek medical attention. First episode of diverticulitis was 2 years ago. Since then she has 1 or 2 episodes. None of them was as severe as the current one. History of hysterectomy, cholecystectomy. Last colonoscopy was 2 years ago ar ound the time of the first diverticulitis attack. No malignancies. She has some abnormal heart rhythm. She has an appointment in [facility] to be evaluated for a pacemaker placement. She lives with her neighbor in a house. She is active overall. Review of Systems Narrative: 10 point review of systems is negative except as per HPI Medications/Allergies Home Medications Medication Instructions Recorded Confirmed Last Taken Type omeprazole 20 mg capsule,delayed 20 mg PO DAILY 12/29/20 06/02/22 06/02/22 History release alendronate 70 mg tablet (Fosamax) 70 mg PO .weekly 05/18/21 06/02/22 05/29/22 History aspirin 81 mg tablet,delayed 81 mg PO DAILY 07/21/21 06/02/22 06/02/22 History release (Adult Aspirin Regimen) rosuvastatin 20 mg tablet 20 mg PO DAILY #90 tabs 12/09/21 06/02/22 06/02/22 Rx carvedilol 6.25 mg tablet 6.25 mg PO BID #180 tabs 01/04/22 06/02/22 06/02/22 Rx clopidogrel 75 mg tablet 75 mg PO DAILY #90 tabs 04/20/22 06/02/22 06/02/22 Rx coenzyme Q10 200 mg capsule 200 mg PO DAILY 04/20/22 06/02/22 06/02/22 History furosemide 40 mg tablet 40 mg PO DAILY@0800 #90 tabs 04/20/22 06/02/22 06/02/22 Rx lisinopril 10 mg tablet 10 mg PO BID #180 tabs 04/20/22 06/02/22 06/02/22 Rx potassium chloride 10 mEq 10 meq PO DAILY #90 tabs 04/20/22 06/02/22 06/02/22 Rx tablet,extended release Fish Amox 1,500 mg PO DAILY 06/02/22 06/02/22 06/01/22 History hydrocortisone 2.5 % topical cream 1 applic topical TID #28 grams 06/02/22 Unknown Rx [id number] 250 mg-dha 90 1 cap PO DAILY 06/02/22 06/02/22 06/02/22 History mg-epa 160 gg-djcf-rfnl-zeax capsule (Ocuvite Adult 50 Plus) nystatin 100,000 unit/gram topical 1 applic topical BID 06/02/22 06/02/22 Unknown History powder (Nystop) Allergies Allergy/AdvReac Type Severity Reaction Status Date / Time No Known Allergies Allergy Verified 06/02/22 11:52 PFSH Acute PFSH: Medical History (Updated 06/02/22 @ 17:17 by Damian Wilde MD) Combined systolic and diastolic congestive heart failure, NYHA class 2 Coronary artery disease GERD (gastroesophageal reflux disease) Hyperlipidemia Nonischemic cardiomyopathy Social History Smoking and tobacco status: never smoked Alcohol intake: never Vitals/I&O/Wt Last Vital Signs Pulse 78 06/02/22 15:00 Resp 18 06/02/22 15:00 BP 110/62 06/02/22 15:00 Pulse Ox 99 06/02/22 15:00 O2 Del Method 06/02/22 15:00 Physical Exam Narrative: General: No acute distress, comfortable Psych: [AAOx3] Eyes: [sclerae are white] Head/ENT: [normocephalic, symmetric] CV: [regular] pulse, [tachychardic], no JVD Lungs: [symmetrical chest rise] Abdomen: [soft, ND, tender to palpation in the lower quadrants, mostly above the pubis. No peritoneal signs.] Ext: [no obvious traumatic deformities] Skin: warm Data : 06/02/22 12:15 06/02/22 12:15 Other data: I personally reviewed CT scan. Consistent with diverticulitis, questionable abscess. A&P Assessment and plan (1) Perforation and abscess of large intestine concurrent with and due to diverticulitis: (2) Nonischemic cardiomyopathy: (3) Combined systolic and diastolic congestive heart failure, NYHA class 2: (4) Coronary artery disease: (5) Hyperlipidemia: Plan The patient has no signs of peritonitis. No indications for any surgical intervention at this time. Admit to medicine for IV antibiotics. N.p.o. right now, okay for sips with meds, ice chips. We will reassess her condition tomorrow. If doing well, will start advance diet and introduce bowel regimen. Okay for DVT prophylaxis as advised. Lovenox can be used. Do not hold for DVT prophylaxis for any reason. This is her third episode. After she recovers from this 1, discussion should be held about elective sigmoidectomy. However, given her significant heart problems, heart failure need to be addressed first. Until then, nonoperative management is the best course of action. We discussed briefly emergent surgery for diverticulitis in case she fails to improve over the next several days. She expressed understanding. Given her heart condition nonoperative approach will be preferred, unless, there is to emergency like peritonitis or large bowel obstruction. Coding Level of Care Code Acute Human Services Program Specialist for [facility] [place] Diagnoses Perforation and abscess of large intestine concurrent with and due to diverticulitis K57.20 Nonischemic cardiomyopathy I42.8 Combined systolic and diastolic congestive heart failure, NYHA class 2 I50.40 Coronary artery disease I25.10 Hyperlipidemia E78.5
[2022-06-02] MEDS: piperacillin-tazobactam 3.375 GM in sodium chloride 0.9% (plus) 50 ML IV (17:49)
[2022-06-02 18:10] LABS: Procalcitonin 0.03 ng/mL (0-0.5); Thyroid Stimulating Hormone 1.73 uIU/mL (0.27-4.20)
[2022-06-02 18:31] LABS: Magnesium 2.3 mg/dL (1.7-2.3)
[2022-06-02 18:32] VITALS: BMI 33.7
[2022-06-02 18:37] VITALS: BP 99/60; PULSE 75; RESP 18; O2SAT 100
[2022-06-02] MEDS: heparin 5,000 unit/mL INJ 1 mL 5000 UNIT SUBCUT (19:06)
[2022-06-02] MEDS: pantoprazole 40 mg SDV IVP (19:07)
[2022-06-02] MEDS: acetaminophen 325 mg Tablet 650 MG PO (19:07)
[2022-06-02] MEDS: sodium chloride 0.9% 1,000 ML 50 ML IV (19:16)
--- NOTE | 2022-06-02 19:25 | PC.NURSE ---
report given to ELIZABETH Huerta.
[2022-06-02 19:38] LABS: Iron 21 ug/dL (37-145); NT Pro B Type Natriuretic Pept 547 pg/mL (0-125); Percent Saturation 7.5 % (20-50); Total Iron Binding Capacity 277 mcg/dl; Unsaturated Iron Binding 256 ug/dL (112-347); Vitamin B12 492 pg/mL (232-1245)
[2022-06-02 20:00] VITALS: BP 80/47; PULSE 87; RESP 87; TEMP 38.2; O2SAT 95
[2022-06-02 21:57] LABS: Folate Level > 20.0 ng/mL (4.8-37.3)
[2022-06-02 22:00] VITALS: PULSE 76
[2022-06-03] VITALS (12 sets, daily range): BP systolic 103–124; BP diastolic 57–72; PULSE 75–94; RESP 16–20; TEMP 36.5–37.9; O2SAT 93–96; BMI 34.1
[2022-06-03] MEDS: piperacillin-tazobactam 3.375 GM in sodium chloride 0.9% (plus) 50 ML IV ×4 (00:02→23:48)
--- NOTE | 2022-06-03 00:12 | PC.NURSE ---
Received report from Martell JOHNSON and assumed care of this patient. Went to assess patient and administer antibiotic at 00:02.
[2022-06-03] MEDS: morphine 4 mg/mL SDV 1 mL 1 MG IVP (03:11)
[2022-06-03] MEDS: ondansetron 2 mg/ML SDV 2 mL 4 MG IVP (04:14)
[2022-06-03 05:01] LABS: Basophils % 0.5 %; Eosinophils # 0.1 10^3/uL (0.0-0.8); Eosinophils % 1.2 %; Hematocrit 32.2 % (37.0-47.0); Hemoglobin 10.4 g/dL (11.5-15.3); Lymphocytes # 1.8 10^3/uL (0.8-4.8); Lymphocytes % 20.7 %; Mean Corpuscular HGB Conc 32.3 g/dL (30.0-36.0); Mean Corpuscular Volume 92.8 fl (81-99); Mean Platelet Volume 9.8 fL (7.4-10.4); Monocytes # 0.8 10^3/uL (0.2-0.9); Monocytes % 9.7 %; Neutrophils # 5.89 10^3/uL (1.8-7.7); Neutrophils % 67.7 %; Nucleated Red Blood Cells % 0 %; Platelet Count 232 10^3/cmm (130-400); Red Blood Count 3.47 10^6/uL (4.1-5.3); Red Cell Distribution Width 13.8 % (12.1-15.1); White Blood Count 8.7 10^3/uL (4.0-10.0)
[2022-06-03 05:45] LABS: Estmated Average Glucose 126
[2022-06-03 05:46] LABS: Alanine Aminotransferase 27 U/L (0-33); Albumin Level 3.4 g/dL (3.5-5.2); Alkaline Phosphatase 74 U/L (35-105); Anion Gap 16.1 (5-19); Aspartate Amino Transferase 41 U/L (0-32); Blood Urea Nitrogen 13 mg/dL (8-23); Calcium 8.7 mg/dL (8.5-10.5); Carbon Dioxide 23 mmol/L (22-29); Chloride 104 mmol/L (98-107); Chol HDL Ratio 3.13 mg/dL (0.0-4.40); Cholesterol 125 mg/dL (0-200); Globulin 3.4 g/dL (1.3-4.6); Glomerular Filtration Rate 83.5 mL/min (90-130); Glucose 101 mg/dL (65-115); HDL Cholesterol 40 mg/dL (60-100); LDL Cholesterol Calculated 58 mg/dL (50-129); Osmolality Calculated 288 mOsm/kg (285-295); Phosphorus 3.1 mg/dL (2.5-4.5); Potassium 4.1 mmol/L (3.5-5.1); Sodium 139 mmol/L (136-145); Total Bilirubin 0.6 mg/dL (0.15-1.2); Total Protein 6.8 g/dL (6.6-8.7); Triglycerides 134 mg/dL (0-150); VLDL Cholestrol Calculation 27 mg/dL (0-30)
[2022-06-03] MEDS: heparin 5,000 unit/mL INJ 1 mL 5000 UNIT SUBCUT ×2 (05:49→17:19)
--- NOTE | 2022-06-03 10:14 | PC.CHAP ---
Pastoral Care Encounter/Spiritual Assessment Type of Contact [] Declined econometrics professor visit [] Patient/Family/Request visit [] Outpatient visit [] Follow-up visit [] Physician referral [] Code/Alert [x] Routine visit [] Staff referral [] Actively dying [x] Patient sleeping [] Family support [] [] Out of room [] Palliative care [] [] Receiving care in room [] Pre-surgical visit [] Trauma [] Long length of stay [] ICU visit [] Other: Relational/Emotional Strength [] Patient feels connected with others/family/visitors/staff [] Distress [] Loneliness/isolation [] Abandonment Spirituality of Patient [] Person of Nathaly [] Attends Sabianist of their Nathaly [] Believes in Prayer [] Reads Bible or Adventism materials [] There are Spiritual issues to be addressed Addiction Psychiatrist Interventions [] Prayer [] Active listening [] Non-anxious presence [] Spiritual/emotional support [] Crisis/trauma care [] Spiritual counseling [] Bereavement support [] Provided bereavement packet [] Provided Bible/devotional materials [] Provided toy/stuffed animal, coloring book to patient or family member [] Provided Communion [] Anointing/Clancy [] Salvation [] Completed spiritual assessment [] Other: Impact on Illness or Injury [] Angry [] Fearful [] Anxious [] Often cries [] Exhaustion [] Unable to work [] Unable to attend anglican [] Unable to walk/stand [] Unable to read [] Unable to drive [] Unable to eat/drink [] Unable to sleep [] Unable to be with family [] Patient intubated [] Other: Summary Time spent with patient x
--- NOTE | 2022-06-03 10:20 | P.PN_ITS ---
Subjective Subjective: She is doing better today. Pain in the abdomen significantly improved. Denies nausea or vomiting. She is very hungry. White blood cell count normalized Vitals/I&O/Wt Last Vital Signs Temp 100.2 F H 06/03/22 08:00 Pulse 90 06/03/22 10:05 Resp 16 06/03/22 08:00 BP 113/71 06/03/22 08:00 Pulse Ox 93 06/03/22 10:05 O2 Del Method 06/03/22 10:05 06/02/22 06/03/22 06/03/22 22:59 06:59 14:59 Intake Total 50 / 50 50 / 100 Balance 50 / 50 50 / 100 Weight last 48 hrs Weight 169 lb 4.8 oz Weight 167 lb Physical Exam Narrative: General: No acute distress, comfortable Psych: AAOx3 Eyes: Sclerae are white Head/ENT: Normocephalic, symmetric CV: Regular pulse, tachychardic, no JVD Lungs: Symmetrical chest rise Abdomen: Soft, ND, less tender to palpation in the lower quadrants. No peritoneal signs. Ext: No obvious traumatic deformities Skin: warm Data : 06/03/22 04:40 06/03/22 04:40 Micro: Microbiology 06/02/22 17:32 Blood Culture - Preliminary Blood SPECIMEN COLLECTED 06/02/22 17:25 Blood Culture - Preliminary Blood SPECIMEN COLLECTED A&P Assessment and plan (1) Perforation and abscess of large intestine concurrent with and due to diverticulitis: (2) Nonischemic cardiomyopathy: (3) Combined systolic and diastolic congestive heart failure, NYHA class 2: (4) Coronary artery disease: (5) Hyperlipidemia: Plan She is responding well to nonoperative management. Advance to clear liquid diet today. Continue pain medications, IV antibiotics. Encourage ambulation, out of bed. We will reassess her condition tomorrow. Discussed with the primary team. Attestations Medical Necessity Statement*: Per primary team Coding Level of Care Code Acute Standpipe Tender for [facility] Diagnoses Perforation and abscess of large intestine concurrent with and due to diverticulitis K57.20 Nonischemic cardiomyopathy I42.8 Combined systolic and diastolic congestive heart failure, NYHA class 2 I50.40 Coronary artery disease I25.10 Hyperlipidemia E78.5
[2022-06-03] MEDS: acetaminophen 325 mg Tablet 650 MG PO ×2 (11:51→17:19)
--- NOTE | 2022-06-03 14:08 | P.PN_ITS ---
Subjective Subjective: No acute events overnight. States pain is better. Passing flatus on and off. Hungry. Denies any nausea vomiting, difficulty in breathing. T- max of 100.2 early today morning. Vitals/I&O/Wt Last Vital Signs Temp 98.8 F 06/03/22 12:00 Pulse 86 06/03/22 12:00 Resp 16 06/03/22 12:00 BP 117/71 06/03/22 12:00 Pulse Ox 93 06/03/22 12:00 O2 Del Method 06/03/22 12:00 06/02/22 06/03/22 06/03/22 22:59 06:59 14:59 Intake Total 50 / 50 50 / 100 120 / 120 Balance 50 / 50 50 / 100 120 / 120 Weight last 48 hrs Weight 76.793 kg Weight 75.75 kg Physical Exam Narrative: General: No acute distress, AO x3 HEENT: PERRLA, pupils bilaterally equal and reactive Chest: Normal vesicular breath sounds, no added sounds, equal good air entry bilaterally CVS: S1-S2 regular, no murmurs, no tachycardia, no gallops, no rubs Abdomen: Soft, nontender, no organomegaly, bowel sounds present Neuro: No focal deficits, no facial deformity, AO x3, power 5/5 in all limbs Data : 06/03/22 04:40 06/03/22 04:40 Micro: Microbiology 06/02/22 17:32 Blood Culture - Preliminary Blood SPECIMEN COLLECTED 06/02/22 17:25 Blood Culture - Preliminary Blood SPECIMEN COLLECTED A&P Assessment and plan (1) Perforation and abscess of large intestine concurrent with and due to diverticulitis: Seen on the CT scan. Appreciate surgical recommendations. Conservative treatment. Start on clear liquid diet. Serial abdominal examination. Continue with Zosyn. Follow-up cultures. Continue with gentle IV hydration with normal saline at 50 cc/h. Watch for fluid overload. (2) Nonischemic cardiomyopathy: (3) Combined systolic and diastolic congestive heart failure, NYHA class 2: Last echocardiogram from October 2021 shows an EF of 25 to 30%. Global LV hypokinesia, grade 1 diastolic dysfunction, mild MR. Fairly compensated for now. Will continue to monitor for fluid status. Hold off on Lasix for now. (4) Coronary artery disease: Takes aspirin, Plavix and statin at home. Start aspirin, statin. Hold off on Plavix for now. No chest pain. Cardiac catheterization done in 2020 showed moderate to severe ostial ramus artery disease and severe distalLAD stenosis. Continue to monitor. (5) Hyperlipidemia: Appreciate A1c, lipid panel. Plan Hypertension: Goal blood pressure less than 140/90 mmHg with mean over 65. Blood pressure well controlled off antihypertensives for now. Continue to hold off on antihypertensives for now. Full code. Protonix for PUD prophylaxis. SCDs for DVT prophylaxis, heparin for DVT prophylaxis. 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
[2022-06-03] MEDS: sodium chloride 0.9% 1,000 ML 50 ML IV (17:15)
[2022-06-03] MEDS: pantoprazole 40 mg SDV IVP (17:19)
[2022-06-04] VITALS (8 sets, daily range): BP systolic 109–129; BP diastolic 61–75; PULSE 75–90; RESP 16–19; TEMP 36.8–37.1; O2SAT 90–97; BMI 34.1
[2022-06-04] MEDS: acetaminophen 325 mg Tablet 650 MG PO ×3 (02:59→21:22)
[2022-06-04] MEDS: heparin 5,000 unit/mL INJ 1 mL 5000 UNIT SUBCUT ×2 (05:03→17:38)
[2022-06-04] MEDS: atorvastatin 40 mg Tablet 80 MG PO (08:43)
[2022-06-04] MEDS: aspirin 81 mg EC Tablet PO (08:43)
[2022-06-04] MEDS: piperacillin-tazobactam 3.375 GM in sodium chloride 0.9% (plus) 50 ML IV ×3 (08:45→23:11)
--- NOTE | 2022-06-04 12:01 | P.PN_ITS ---
Subjective Subjective: No acute events overnight. Patient states she is feeling better. Abdominal pain is better. Advance to mechanical soft diet. Tolerated breakfast. Has remained hemodynamically stable and afebrile. Denies any chest pain or difficulty in breathing. Remains on room air. Passing flatus, no bowel movements yet. Vitals/I&O/Wt Last Vital Signs Temp 98.7 F 06/04/22 11:51 Pulse 87 06/04/22 11:51 Resp 16 06/04/22 11:51 BP 128/75 06/04/22 11:51 Pulse Ox 90 06/04/22 11:51 O2 Del Method 06/04/22 11:51 06/03/22 06/04/22 06/04/22 22:59 06:59 14:59 Intake Total 1510 / 1680 329.375 / 2008.375 240 / 240 Balance 1510 / 1680 329.375 / 2008.375 240 / 240 Weight last 48 hrs Weight 76.793 kg Weight 76.657 kg Weight 76.793 kg Weight 75.75 kg Physical Exam Narrative: General: No acute distress, AO x3 HEENT: PERRLA, pupils bilaterally equal and reactive Chest: Normal vesicular breath sounds, no added sounds, equal good air entry bilaterally CVS: S1-S2 regular, no murmurs, no tachycardia, no gallops, no rubs Abdomen: Soft, nontender, no organomegaly, bowel sounds present Neuro: No focal deficits, no facial deformity, AO x3, power 5/5 in all limbs Data : 06/03/22 04:40 06/03/22 04:40 Micro: Microbiology 06/02/22 17:25 Blood Culture - Preliminary Blood NEGATIVE TO DATE 06/02/22 17:32 Blood Culture - Preliminary Blood NEGATIVE TO DATE 06/03/22 00:10 MRSA Culture - Final Nose A&P Assessment and plan (1) Perforation and abscess of large intestine concurrent with and due to diverticulitis: Seen on the CT scan. Appreciate surgical recommendations. Conservative treatment. Diet advanced to mechanical soft. Serial abdominal examination. Continue with Zosyn. Follow-up cultures. Stop IV fluids. Patient has been advanced to mechanical soft diet. (2) Nonischemic cardiomyopathy: (3) Combined systolic and diastolic congestive heart failure, NYHA class 2: Last echocardiogram from October 2021 shows an EF of 25 to 30%. Global LV hypokinesia, grade 1 diastolic dysfunction, mild MR. Fairly compensated for now. Holding off on fluids and Lasix for now. (4) Coronary artery disease: Takes aspirin, Plavix and statin at home. Start aspirin, statin. Hold off on Plavix for now. No chest pain. Cardiac catheterization done in 2020 showed moderate to severe ostial ramus artery disease and severe distalLAD stenosis. Continue to monitor. (5) Hyperlipidemia: Appreciate A1c, lipid panel. Plan Hypertension: Goal blood pressure less than 140/90 mmHg with mean over 65. Blood pressure well controlled off antihypertensives for now. Continue to hold off on antihypertensives for now. Full code. Protonix for PUD prophylaxis. SCDs for DVT prophylaxis, heparin for DVT prophylaxis. Clear liquid diet Attestations Medical Necessity Statement*: Requires further hospitalization for management of diverticulitis along with contained perforation for IV antibiotics while diet is advanced Time Spent in Patient Care: Greater than 35 minutes Coding Level of Care Code Acute Customer Service Leader for [facility] [place] Diagnoses Perforation and abscess of large intestine concurrent with and due to diverticulitis K57.20 Nonischemic cardiomyopathy I42.8 Combined systolic and diastolic congestive heart failure, NYHA class 2 I50.40 Coronary artery disease I25.10 Hyperlipidemia E78.5
[2022-06-04] MEDS: pantoprazole 40 mg SDV IVP (17:38)
[2022-06-05 03:53] VITALS: BP 117/61; PULSE 87; RESP 17; TEMP 36.9; O2SAT 91
[2022-06-05 05:19] LABS: Basophils # 0.1 10^3/uL (0.0-0.1); Basophils % 0.4 %; Eosinophils # 0.2 10^3/uL (0.0-0.8); Eosinophils % 1.2 %; Hematocrit 34.9 % (37.0-47.0); Hemoglobin 10.7 g/dL (11.5-15.3); Lymphocytes # 2.9 10^3/uL (0.8-4.8); Lymphocytes % 23.7 %; Mean Corpuscular HGB Conc 30.7 g/dL (30.0-36.0); Mean Corpuscular Hemoglobin 29.6 pg (28.0-34.0); Mean Corpuscular Volume 96.4 fl (81-99); Mean Platelet Volume 9.7 fL (7.4-10.4); Monocytes % 8.1 %; Neutrophils # 7.97 10^3/uL (1.8-7.7); Neutrophils % 65.9 %; Nucleated Red Blood Cells % 0 %; Platelet Count 254 10^3/cmm (130-400); Red Blood Count 3.62 10^6/uL (4.1-5.3); Red Cell Distribution Width 13.5 % (12.1-15.1); White Blood Count 12.1 10^3/uL (4.0-10.0)
[2022-06-05] MEDS: heparin 5,000 unit/mL INJ 1 mL 5000 UNIT SUBCUT (05:27)
[2022-06-05 05:49] LABS: Alanine Aminotransferase 24 U/L (0-33); Albumin Level 3.1 g/dL (3.5-5.2); Alkaline Phosphatase 77 U/L (35-105); Aspartate Amino Transferase 13 U/L (0-32); Blood Urea Nitrogen 9 mg/dL (8-23); Carbon Dioxide 22 mmol/L (22-29); Chloride 106 mmol/L (98-107); Globulin 3.7 g/dL (1.3-4.6); Glomerular Filtration Rate 99.7 mL/min (90-130); Glucose 107 mg/dL (65-115); Osmolality Calculated 287 mOsm/kg (285-295); Sodium 139 mmol/L (136-145); Total Bilirubin 0.2 mg/dL (0.15-1.2); Total Protein 6.8 g/dL (6.6-8.7)
[2022-06-05 06:09] VITALS: PULSE 87
[2022-06-05 07:07] VITALS: BP 154/80; PULSE 82; RESP 17; TEMP 36.9; O2SAT 91
[2022-06-05] MEDS: aspirin 81 mg EC Tablet PO (10:23)
[2022-06-05] MEDS: polyethylene glycol 3350 Pkt 17 gm PO (10:23)
[2022-06-05] MEDS: atorvastatin 40 mg Tablet 80 MG PO (10:23)
[2022-06-05] MEDS: piperacillin-tazobactam 3.375 GM in sodium chloride 0.9% (plus) 50 ML IV ×2 (10:23→15:30)
--- NOTE | 2022-06-05 10:48 | PC.SOCIAL ---
IMM update Imm updated with patient at bedside. Copy of page 2 provided. Patient verbalized understanding. Copy in chart initialed, dated and timed.
--- NOTE | 2022-06-05 11:14 | PM.DCS ---
Discharge Providers Date of Admission: 06/02/22 18:25 Date of Discharge: June 05, 2022 Attending Provider at Admission: Damain Wilde MD Attending Provider at Discharge: Katy Rea MD Primary Care Provider: ESTHER Blakely Diagnoses at Discharge Discharge Diagnosis (1) Perforation and abscess of large intestine concurrent with and due to diverticulitis: Status: Acute (2) Nonischemic cardiomyopathy: Status: Acute (3) Combined systolic and diastolic congestive heart failure, NYHA class 2: Status: Acute (4) Coronary artery disease: Status: Acute (5) Hyperlipidemia: Status: Acute Reason for Visit Reason for Visit: urinary pain Brief History: As per Dr. Kaiser Sammy Sherwood is a 66 year old female with past medical history of nonischemic cardiomyopathy with last known EF of 25 to 30%, cardiac catheterization done in 2020 showing distal moderate to severe ostial ramus stenosis and distal LAD stenosis which was treated medically who has been referred for CABINETMAK[employer] MAINTENANCE-D placement at [facility] presented to the ER today with abdominal pain radiating to back.? As per the patient she has been having abdominal pain for last 4 days.? She has not had a bowel movement for last 4 days so she took a bowel prep as an outpatient after which she had huge bowel movement but her pain continued so she presented to the ER today.? She has not noticed any fevers, dizziness, difficulty in breathing or chest pain at home. In the ER CT abdomen pelvis was done which showed acute diverticulitis with diffuse thickening and enhancement at sigmoid colon with small amount of developing abscess posterior to the uterus without any associated air. Medicine was consulted for admission and further management.? Surgery has been consulted from the ER. Hospital Course Hospital Course Patient admitted for abdominal pain. Diagnosed with acute diverticulitis with diffuse thickening and enhancement of sigmoid colon. Patient placed on IV antibiotics. Started on Zosyn. Her blood pressure medications were held during admission which is lisinopril 10 twice daily due to pressure being well controlled and at times on the lower side. Lasix was restarted on day of discharge. Patient's biggest concern is that she has not had a bowel movement and would like to start on stool softeners. MiraLAX was prescribed to her. She will remain on MiraLAX at home at this point. I have given her instructions to hold it if she is got diarrhea. Patient will complete total 14 days of antibiotics. She will follow-up with general surgery as an outpatient for colonoscopy in 6 to 8 weeks. General surgery also evaluated patient on day of discharge. Plan is to send her home today after her 2 doses of Zosyn were administered. All questions answered for the patient. Patient will be discharged home in stable condition. She has been given instructions to return to ER if she has worsening abdominal pain or any new symptoms develop. Physical Exam Narrative: General: No acute distress, AO x3 Chest: CTA b/l, equal good air entry bilaterally CVS: S1-S2 regular, no murmurs, Abdomen: Soft, nontender, no organomegaly, bowel sounds present Neuro: Non-focal Discharge Data Studies Completed and Pending Completed Studies During Hospitalization Category Date Time Status CT abdomen pelvis w con* [id number] Stat Cat Scan 06/02/22 13:11 Completed Pending at discharge Category Date Time Status Blood Culture Stat Lab 06/02/22 17:32 Results Radiology Impressions Abdomen/Pelvis CT 06/02/22 13:11 IMPRESSION: 1. Acute diverticulitis with diffuse thickening with enhancement and inflammatory stranding about the sigmoid colon. 2. Small contained peripheral enhancing fluid collection along the anterior sigmoid colon posterior to the uterus measuring 3.4 x 2.1 CM suspicious for a small amount of phlegmon/developing abscess . No associated air. This is too small to drain percutaneously. Recommend interval follow-up to resolution. 3. Small esophageal hiatal hernia. 4. Prior cholecystectomy. 5. No other acute findings Notified Elizabeth Ding at 06/02/2022 4:01 PM. Laboratory Results WBC 12.1 10^3/uL (4.0-10.0) H 06/05/22 05:06 RBC 3.62 10^6/uL (4.1-5.3) L 06/05/22 05:06 Hgb 10.7 g/dL (11.5-15.3) L 06/05/22 05:06 Hct 34.9 % (37.0-47.0) L 06/05/22 05:06 MCV 96.4 fl (81-99) 06/05/22 05:06 MCH 29.6 pg (28.0-34.0) 06/05/22 05:06 MCHC 30.7 g/dL (30.0-36.0) 06/05/22 05:06 RDW 13.5 % (12.1-15.1) 06/05/22 05:06 Plt Count 254 10^3/cmm (130-400) 06/05/22 05:06 MPV 9.7 fL (7.4-10.4) 06/05/22 05:06 Neut % (Auto) 65.9 % 06/05/22 05:06 Lymph % (Auto) 23.7 % 06/05/22 05:06 [place] % (Auto) 8.1 % 06/05/22 05:06 Eos % (Auto) 1.2 % 06/05/22 05:06 Baso % (Auto) 0.4 % 06/05/22 05:06 Neut # (Auto) 7.97 10^3/uL (1.8-7.7) H 06/05/22 05:06 Lymph # (Auto) 2.9 10^3/uL (0.8-4.8) 06/05/22 05:06 [place] # (Auto) 1.0 10^3/uL (0.2-0.9) H 06/05/22 05:06 Eos # (Auto) 0.2 10^3/uL (0.0-0.8) 06/05/22 05:06 Baso # (Auto) 0.1 10^3/uL (0.0-0.1) 06/05/22 05:06 Nucleated RBC % (auto) 0 % 06/05/22 05:06 Nucleated RBCs # 0.0 /100WBC 06/05/22 05:06 Sodium 139 mmol/L (136-145) 06/05/22 05:06 Potassium 4.0 mmol/L (3.5-5.1) 06/05/22 05:06 Chloride 106 mmol/L (98-107) 06/05/22 05:06 Carbon Dioxide 22 mmol/L (22-29) 06/05/22 05:06 Anion Gap 15.0 (5-19) 06/05/22 05:06 BUN 9 mg/dL (8-23) 06/05/22 05:06 Creatinine 0.6 mg/dL (0.5-0.9) 06/05/22 05:06 GFR Calculation 99.7 mL/min (90-130) 06/05/22 05:06 Glucose 107 mg/dL (65-115) 06/05/22 05:06 Estimat Average Glucose 126 06/03/22 04:40 Hemoglobin A1c 6.0 % (4.0-6.0) 06/03/22 04:40 Calculated Osmolality 287 mOsm/kg (285-295) 06/05/22 05:06 Calcium 9.0 mg/dL (8.5-10.5) 06/05/22 05:06 Phosphorus 3.1 mg/dL (2.5-4.5) 06/03/22 04:40 Magnesium 2.3 mg/dL (1.7-2.3) 06/02/22 12:15 Iron 21 ug/dL (37-145) L 06/02/22 12:15 TIBC 277 mcg/dl 06/02/22 12:15 % Saturation 7.5 % (20-50) L 06/02/22 12:15 Unsat Iron Binding 256 ug/dL (112-347) 06/02/22 12:15 Total Bilirubin 0.2 mg/dL (0.15-1.2) 06/05/22 05:06 AST 13 U/L (0-32) 06/05/22 05:06 ALT 24 U/L (0-33) 06/05/22 05:06 Alkaline Phosphatase 77 U/L (35-105) 06/05/22 05:06 NT-Pro-B Natriuret Pep 547 pg/mL (0-125) H 06/02/22 12:15 Total Protein 6.8 g/dL (6.6-8.7) 06/05/22 05:06 Albumin 3.1 g/dL (3.5-5.2) L 06/05/22 05:06 Globulin 3.7 g/dL (1.3-4.6) 06/05/22 05:06 Triglycerides 134 mg/dL (0-150) 06/03/22 04:40 Cholesterol 125 mg/dL (0-200) 06/03/22 04:40 LDL Cholesterol, Calc 58 mg/dL (50-129) 06/03/22 04:40 Total VLDL Cholesterol 27 mg/dL (0-30) 06/03/22 04:40 HDL Cholesterol 40 mg/dL (60-100) L 06/03/22 04:40 Cholesterol/HDL Ratio 3.13 mg/dL (0.0-4.40) 06/03/22 04:40 Lipase 23 U/L (13-60) 06/02/22 12:15 Vitamin B12 492 pg/mL (232-1245) 06/02/22 12:15 Folate > 20.0 ng/mL (4.8-37.3) 06/02/22 12:15 Procalcitonin 0.03 ng/mL (0-0.5) 06/02/22 12:15 TSH 1.73 uIU/mL (0.27-4.20) 06/02/22 12:15 Urine Color Yellow (Yellow) 06/02/22 11:30 Urine Appearance Clear (CLEAR) 06/02/22 11:30 Urine pH 5 (5-7) 06/02/22 11:30 Ur Specific [place] 1.015 (1.005-1.030) 06/02/22 11:30 Urine Protein Neg (Negative) 06/02/22 11:30 Urine Glucose (UA) Norm (Normal) 06/02/22 11:30 Urine Ketones Negative (Negative) 06/02/22 11:30 Urine Blood Neg (Negative) 06/02/22 11:30 Urine Nitrate Negative (Negative) 06/02/22 11:30 Urine Bilirubin Neg (Negative) 06/02/22 11:30 Urine Urobilinogen Neg mg/dL (Negative) 06/02/22 11:30 Ur Leukocyte Esterase Negative (Negative) 06/02/22 11:30 Vitals Last Vital Signs Temp 98.4 F 06/05/22 07:07 Pulse 82 06/05/22 07:07 Resp 17 06/05/22 07:07 BP 154/80 06/05/22 07:07 Pulse Ox 91 06/05/22 07:07 O2 Del Method 06/04/22 15:58 Discharge Plan Discharge Patient Disposition: Home Condition: Stable Prescriptions: New hydrocortisone 2.5 % cream 1 applic topical TID Qty: 28 0RF amoxicillin-pot clavulanate 875-125 mg tablet 1 tab PO BID 11 Days Qty: 22 0RF Miralax 17 gram/dose powder 4 g PO DAILY 14 Days Qty: 119 0RF Rx Instructions: Hold if diarrhea Continued alendronate [Fosamax] 70 mg tablet 70 mg PO .weekly Rx Instructions: on monday aspirin [Adult Aspirin Regimen] 81 mg tablet,delayed release (DR/EC) 81 mg PO DAILY coenzyme Q10 200 mg capsule 200 mg PO DAILY furosemide 40 mg tablet 40 mg PO DAILY@0800 Qty: 90 3RF clopidogrel 75 mg tablet 75 mg PO DAILY Qty: 90 3RF potassium chloride 10 mEq tablet extended release 10 meq PO DAILY Qty: 90 3RF omeprazole 20 mg capsule,delayed release(DR/EC) 20 mg PO DAILY rosuvastatin 20 mg tablet 20 mg PO DAILY Qty: 90 3RF carvedilol 6.25 mg tablet 6.25 mg PO BID Qty: 180 3RF Nystop 100,000 unit/gram powder 1 applic TOPICAL BID Ocuvite Adult 50 Plus 250 mg (90 mg-160 mg) Capsule 1 cap PO DAILY Fish Amox 1,500 mg PO DAILY Held lisinopril 10 mg tablet 10 mg PO BID Qty: 180 3RF Hold Instructions: see pcp Discharge Orders: Discharge Order (Routine); Ordered 06/05/22 Ordered By: Katy Rea Referrals: Germán José DO [Physician] - 2 weeks Elena Lafleur FNP [Primary Care Provider] - 4-7 days Discharge Diet: Advance as tolerated Discharge Activity: Increase activity as tolerated Patient Instructions: Opioid Safety, Pain Management Activity Restrictions/Additional Instructions: Return to ER with any worsening of problems Discharge Attestations Time Spent in Discharge Care*: greater than 30 min Quality Metrics Clinical Quality Measures [ No reported AMI, CVA or VTE this stay] Coding Level of Care Code Acute g [facility] note Diagnoses Perforation and abscess of large intestine concurrent with and due to diverticulitis K57.20 Nonischemic cardiomyopathy I42.8 Combined systolic and diastolic congestive heart failure, NYHA class 2 I50.40 Coronary artery disease I25.10 Hyperlipidemia E78.5
[2022-06-05 11:34] VITALS: BP 145/97; PULSE 96; RESP 17; TEMP 36.5; O2SAT 97
--- NOTE | 2022-06-05 12:58 | PM.PN ---
Subjective Subjective: She is doing well. Denies any abdominal pain. She has no other complaints. Passing gas, did not have a bowel movement yet. Last bowel movement was on the day of admission, 3 days ago. Vitals/I&O/Wt Last Vital Signs Temp 97.7 F 06/05/22 11:34 Pulse 96 06/05/22 11:34 Resp 17 06/05/22 11:34 BP 145/97 06/05/22 11:34 Pulse Ox 97 06/05/22 11:34 O2 Del Method 06/04/22 15:58 06/04/22 06/05/22 06/05/22 22:59 06:59 14:59 Intake Total 1290 / 1820 50 / 1870 200 / 200 Balance 1290 / 1820 50 / 1870 200 / 200 Weight last 48 hrs Weight 169 lb Weight 169 lb 4.8 oz Physical Exam Narrative: General: No acute distress, comfortable Psych: AAOx3 Eyes: Sclerae are white Head/ENT: Normocephalic, symmetric CV: Regular pulse, tachychardic, no JVD Lungs: Symmetrical chest rise Abdomen: Soft, ND, nontender no peritoneal signs. Ext: No obvious traumatic deformities Skin: warm Data : 06/05/22 05:06 06/05/22 05:06 A&P Assessment and plan (1) Perforation and abscess of large intestine concurrent with and due to diverticulitis: (2) Nonischemic cardiomyopathy: (3) Combined systolic and diastolic congestive heart failure, NYHA class 2: (4) Coronary artery disease: (5) Hyperlipidemia: Plan The patient is doing quite well. She denies any complaints at this time. Plan to advance to a soft mechanical diet and discharged home on oral antibiotics for 11 days in total. I would recommend Augmentin. Cipro Flagyl is another good combination. I will also give her MiraLAX today to facilitate a bowel movement. She is passing gas and has no pain, there is no need to wait for inpatient bowel movement as it may take a day or 2. She will need a colonoscopy 8+ weeks from now. Given that she has recurrent diverticulitis, elective surgical procedure should be discussed at next appointment after colonoscopy. I explained it to the patient, she will follow-up with Dr. José to further discuss her options. Attestations Medical Necessity Statement*: Per primary team Coding Level of Care Code Acute Curtain Supervisor for Chg Fwd Diagnoses Perforation and abscess of large intestine concurrent with and due to diverticulitis K57.20 Nonischemic cardiomyopathy I42.8 Combined systolic and diastolic congestive heart failure, NYHA class 2 I50.40 Coronary artery disease I25.10 Hyperlipidemia E78.5
[2022-06-05 15:37] VITALS: BP 111/70; PULSE 94; RESP 17; TEMP 37.2; O2SAT 96
== END 2022-06-05 17:40 | disposition home or self-care (01) | DRG 392 ==
LOC: ER 17:23 → MEDSURG 18:31
PROVIDERS: Admitting Provider Student in an Organized Health Care Education/Training Program; Emergency Provider Registered Nurse; PCP Nurse Practitioner Family; Visit Provider Internal Medicine
DX: K57.20 Diverticulitis of large intestine with perforation and abscess without bleeding (principal); I42.8 Other cardiomyopathies; I50.42 Chronic combined systolic (congestive) and diastolic (congestive) heart failure; I25.10 Atherosclerotic heart disease of native coronary artery without angina pectoris; E78.5 Hyperlipidemia, unspecified; Z90.49 Acquired absence of other specified parts of digestive tract; Z90.710 Acquired absence of both cervix and uterus; Z79.02 Long term (current) use of antithrombotics/antiplatelets
CPT/HCPCS: 12345; 36415; 74177; 80053; 80061; 81003; 82607; 82746; 83036; 83540; 83550; 83690; 83735; 83880; 84100; 84145; 84443; 85025; 87040; 87641; 94664; 96365; 96367; 96372; 99285; C9113; J1644; J2270; J2405; J2543; J7030; Q9967

== ENCOUNTER 2022-06-08 12:48 | Outpatient (CLI) | payer MEDICARE, MEDICAID, SELFPAY ==
--- NOTE | 2022-06-08 13:05 | MM_ITS ---
WS: [id number] BILATERAL 3D TOMOSYNTHESIS DIGITAL SCREENING MAMMOGRAPHY WITH CAD CLINICAL INFORMATION: SCREENING HISTORY: Screening mammogram. No current complaints. COMPARISON: 2020 TECHNIQUE: Bilateral CC and MLO views. FINDINGS: Scattered fibroglandular densities bilaterally. No suspicious focal mass, asymmetry, calcifications, or architectural distortion. No evidence of malignancy. Vascular calcification. A few punctate calcif ications. MM/[place] [id number] IMPRESSION: BI-RADS: 2-Benign FOLLOW UP: 1 Year Follow-up Recommend return to annual screening mammography.
== END 2022-06-08 12:49 | disposition home or self-care (01) ==
LOC: RAD 12:49
PROVIDERS: PCP Nurse Practitioner Family; Visit Provider Nurse Practitioner Family
DX: Z12.31 Encounter for screening mammogram for malignant neoplasm of breast (principal)
CPT/HCPCS: 77063; 77067

== ENCOUNTER → 2022-06-23 12:59 | Outpatient (BNVA) | payer MEDICARE, MEDICAID, SELFPAY | PROVIDERS: PCP Nurse Practitioner Family; Visit Provider Surgery | DX: K57.92 Diverticulitis of intestine, part unspecified, without perforation or abscess without bleeding (principal) | CPT/HCPCS: 99203 ==

== ENCOUNTER 2022-08-08 16:25 | Emergency (ER) | payer MEDICARE, MEDICAID, SELFPAY ==
[2022-08-08] VITALS (20 sets, daily range): BP systolic 141–168; BP diastolic 83–92; PULSE 77–99; RESP 13–28; TEMP 36.4; O2SAT 96–100
--- NOTE | 2022-08-08 16:39 | CTR_ITS ---
PROCEDURE INFORMATION: Exam: CT Head Without Contrast Exam date and time: 08/08/2022 4:50 PM Age: 66 years old Clinical indication: Condition or disease; Convulsions or seizures; Additional info: First time seizure TECHNIQUE: Imaging protocol: Computed tomography of the head without contrast. Radiation optimization: All CT scans at this facility use at least one of these dose optimization techniques: automated exposure control; mA and/or kV adjustment per patient size (includes targeted exams where dose is matched to clinical indication); or iterative reconstruction. COMPARISON: US ROR carotid duplex BI 09/15/2020 10:41 AM RADIATION DOSE METRICS: Total DLP (mGy-cm): 1041.58 FINDINGS: Brain: No focal hemorrhage or midline shift is identified. The ventricles and parenchyma show mild atrophy and chronic bicerebral white matter ischemic change. Cerebral ventricles: No ventriculomegaly or evidence of hydrocephalus. Paranasal sinuses: No evidence of acute sinusitis. Mastoid air cells: Visualized mastoid air cells are well aerated. Bones/joints: No displaced skull fracture is noted. Soft tissues: Unremarkable. Vasculature: Advanced diffuse vascular calcification noted. CT/CT head wo con* [id number] IMPRESSION: 1. No acute intracranial abnormality. 2. Mild age-related changes.
--- NOTE | 2022-08-08 16:39 | XRR_ITS ---
PROCEDURE INFORMATION: Exam: XR Chest Exam date and time: 08/08/2022 4:43 PM Age: 66 years old Clinical indication: Patient HX: Patient is brought in by EMS after being found in the home and garden department at the store seizing. No HX of seizures. ; Additional info: SOB TECHNIQUE: Imaging protocol: Radiologic exam of the chest. Views: 1 view. COMPARISON: CR XR chest 1V portable [id number] 06/07/2021 11:47 AM FINDINGS: Tubes, catheters and devices: Left-sided pacing device. Lungs: Unremarkable. No consolidation. Pleural spaces: Unremarkable. No pleural effusion. No pneumothorax. Heart/Mediastinum: The heart is large. No evidence of venous congestion. Vasculature: Advanced diffuse vascular calcification noted. Bones/joints: Unremarkable. Organs: Absent gallbladder. XR/XR chest 1V portable [id number] IMPRESSION: 1. No acute finding. 2. A few chronic findings above.
--- NOTE | 2022-08-08 16:41 | W.ED.SEIZURE ---
HPI - Seizure General: Chief Complaint: Seizure Stated Complaint: Seizure Time Seen by Provider: 08/08/22 16:27 History of Present Illness: HPI Narrative: Patient is brought in by EMS after being found in the home and garden department at the store seizing. Patient is awake here and able to answer questions. She states she does not remember what happened. Does not have a history of seizures. She denies any recent medication changes. Denies any [id number] herbs or supplements. Denies substance abuse of all types. Denies any cold symptoms including no fever, cough, headache, vomiting, diarrhea. Associated symptoms: Deny chest pain or fever(s) Review of Systems Const: Denies: fever(s) or body aches Eyes: Denies: change in vision or blurry vision ENMT: Denies: throat pain or odynophagia Card: Denies: chest pain or palpitations Resp: Denies: dyspnea or productive cough GI: Denies: abdominal pain, nausea or vomiting : Denies: flank pain or dysuria Musc: Denies: neck pain or back pain Skin/Breast: Denies: rash or pruritus Neuro: Denies: headache(s) or numbness in extremities Psych: Denies: anxiety or change in appetite Endo: Denies: polyuria or excessive sweating PFSH ED PFSH: Medical History Combined systolic and diastolic congestive heart failure, NYHA class 2 Coronary artery disease GERD (gastroesophageal reflux disease) Hyperlipidemia Nonischemic cardiomyopathy Social History Smoking and tobacco status: never smoked Alcohol intake: never Physical Exam Const: COMMON NORMALS: no acute distress, patient oriented x3 and healthy appearing OTHER: Patient is somewhat somnolent on exam, however she is oriented x3 and able to answer questions and follow commands appropriately HENMT: COMMON NORMALS: normocephalic and atraumatic HEAD & SCALP: normocephalic and atraumatic OTHER: Laceration to right front tongue Eye: COMMON NORMALS: Equal, round and reactive pupils present and EOMs intact bilaterally PUPIL: Yes Equal, round and reactive pupils present Neck/C-Spine: COMMON NORMALS: full ROM and supple Resp: COMMON NORMALS: normal respiratory effort, No retractions and No use of accessory muscles Cardio: COMMON NORMALS: regular rate and regular rhythm RATE: regular rate RHYTHM: regular rhythm GI: COMMON NORMALS: Normal to inspection, nondistended, normoactive bowel sounds present, Soft to palpation and non-tender PALPATION: Yes Soft to palpation Back/Pelvis: COMMON NORMALS: thoracic and lumbar spine normal to inspection and no thoracic nor lumbar tenderness Extremity: COMMON NORMALS: normal to inspection and full ROM Neuro: COMMON NORMALS: patient oriented x3 Psych: COMMON NORMALS: mental status grossly normal and cooperative Skin: COMMON NORMALS: no rashes or lesions noted and no wounds GENERAL SKIN EXAM: no rashes or lesions noted Course Vital Signs: Vital signs: Vital Signs Temperature 97.6 F 08/08/22 17:15 Pulse Rate 86 08/08/22 18:45 Respiratory Rate 19 H 08/08/22 18:45 Blood Pressure 168/92 08/08/22 18:45 Pulse Oximetry 98 08/08/22 18:45 Oxygen Delivery Me thod 08/08/22 17:15 Oxygen Flow Rate 2 08/08/22 17:15 MDM - Seizure MDM Narrative Medical decision making narrative: Patient is brought in by EMS after being found in the home and garden department at the store seizing. Patient is awake here and able to answer questions. She states she does not remember what happened. Does not have a history of seizures. She denies any recent medication changes. Denies any [id number]-[id number] herbs or supplements. Denies substance abuse of all types. Denies any cold symptoms including no fever, cough, headache, vomiting, diarrhea. Will check labs, CT, x-ray, and reassess On reassessment I talked to the patient about the test results. We will refer her to neurology. Plan to discharge home at this time with precautions to return for worsening or changing symptoms. Lab Data 08/08/22 17:18 08/08/22 17:18 Labs: Radiology Impressions Chest X-Ray 08/08/22 16:39 IMPRESSION: 1. No acute finding. 2. A few chronic findings above. Head CT 08/08/22 16:39 IMPRESSION: 1. No acute intracranial abnormality. 2. Mild age-related changes. Laboratory Results WBC 11.2 10^3/uL (4.0-10.0) H 08/08/22 17:18 RBC 4.72 10^6/uL (4.1-5.3) 08/08/22 17:18 Hgb 13.7 g/dL (11.5-15.3) 08/08/22 17:18 Hct 44.4 % (37.0-47.0) 08/08/22 17:18 MCV 94.1 fl (81-99) 08/08/22 17:18 MCH 29.0 pg (28.0-34.0) 08/08/22 17:18 MCHC 30.9 g/dL (30.0-36.0) 08/08/22 17:18 RDW 14.0 % (12.1-15.1) 08/08/22 17:18 Plt Count 290 10^3/cmm (130-400) 08/08/22 17:18 MPV 10.2 fL (7.4-10.4) 08/08/22 17:18 Neut % (Auto) 37.2 % 08/08/22 17:18 Lymph % (Auto) 46.6 % 08/08/22 17:18 [place] % (Auto) 12.1 % 08/08/22 17:18 Eos % (Auto) 3.0 % 08/08/22 17:18 Baso % (Auto) 0.7 % 08/08/22 17:18 Neut # (Auto) 4.16 10^3/uL (1.8-7.7) 08/08/22 17:18 Lymph # (Auto) 5.2 10^3/uL (0.8-4.8) H 08/08/22 17:18 [place] # (Auto) 1.4 10^3/uL (0.2-0.9) H 08/08/22 17:18 Eos # (Auto) 0.3 10^3/uL (0.0-0.8) 08/08/22 17:18 Baso # (Auto) 0.1 10^3/uL (0.0-0.1) 08/08/22 17:18 Nucleated RBC % (auto) 0 % 08/08/22 17:18 Nucleated RBCs # 0.0 /100WBC 08/08/22 17:18 Specimen Type Arterial 08/08/22 16:58 Sample Site Brachial, right 08/08/22 16:58 ABG pH 7.40 (7.35-7.45) 08/08/22 16:58 ABG pCO2 39.8 mmHg (35-45) 08/08/22 16:58 ABG pO2 97.2 mmHg (80.0-100.0) 08/08/22 16:58 ABG HCO3 24.4 mmol/L (22-26) 08/08/22 16:58 ABG Base Excess -0.5 mmol/L (-2.0-2.0) 08/08/22 16:58 Ljuis Test N/a 08/08/22 16:58 Hematocrit 41.2 % (37-47) 08/08/22 16:58 O2 Delivery Device Nc 08/08/22 16:58 O2 Liters/Min 2.0 % 08/08/22 16:58 FiO2 28.0 % 08/08/22 16:58 Retail Supervisor ID Amh 08/08/22 16:58 Sodium 139 mmol/L (136-145) 08/08/22 17:18 Potassium 4.4 mmol/L (3.5-5.1) 08/08/22 17:18 Chloride 99 mmol/L (98-107) 08/08/22 17:18 Carbon Dioxide 17 mmol/L (22-29) L 08/08/22 17:18 Anion Gap 27.4 (5-19) H 08/08/22 17:18 BUN 16 mg/dL (8-23) 08/08/22 17:18 Creatinine 0.8 mg/dL (0.5-0.9) 08/08/22 17:18 GFR Calculation 71.5 mL/min (90-130) L 08/08/22 17:18 Glucose 88 mg/dL (65-115) 08/08/22 17:18 Calculated Osmolality 289 mOsm/kg (285-295) 08/08/22 17:18 Calcium 10.2 mg/dL (8.5-10.5) 08/08/22 17:18 Magnesium 2.1 mg/dL (1.7-2.3) 08/08/22 17:18 Total Bilirubin 0.3 mg/dL (0.15-1.2) 08/08/22 17:18 AST 23 U/L (0-32) 08/08/22 17:18 ALT 17 U/L (0-33) 08/08/22 17:18 Alkaline Phosphatase 73 U/L (35-105) 08/08/22 17:18 Total Protein 8.3 g/dL (6.6-8.7) 08/08/22 17:18 Albumin 4.6 g/dL (3.5-5.2) 08/08/22 17:18 Globulin 3.7 g/dL (1.3-4.6) 08/08/22 17:18 Urine Color Yellow (Yellow) 08/08/22 18:35 Urine Appearance Clear (CLEAR) 08/08/22 18:35 Urine pH 5 (5-7) 08/08/22 18:35 Ur Specific [place] 1.025 (1.005-1.030) 08/08/22 18:35 Urine Protein Neg (Negative) 08/08/22 18:35 Urine Glucose (UA) Norm (Normal) 08/08/22 18:35 Urine Ketones 1+ (Negative) H 08/08/22 18:35 Urine Blood Neg (Negative) 08/08/22 18:35 Urine Nitrate Negative (Negative) 08/08/22 18:35 Urine Bilirubin Neg (Negative) 08/08/22 18:35 Urine Urobilinogen Neg mg/dL (Negative) 08/08/22 18:35 Ur Leukocyte Esterase Negative (Negative) 08/08/22 18:35 Salicylates 0.4 mg/dL (3-10) L 08/08/22 17:18 Urine Opiates Screen Negative ng/mL (Negative) 08/08/22 18:35 Acetaminophen < 5.0 ug/mL (10-30) L 08/08/22 17:18 Ur Barbiturates Screen Negative ng/mL (Negative) 08/08/22 18:35 Ur Phencyclidine Scrn Negative ng/mL (Negative) 08/08/22 18:35 Ur Amphetamines Screen Negative ng/mL (Negative) 08/08/22 18:35 U Benzodiazepines Scrn Negative ng/mL (Negative) 08/08/22 18:35 Urine Cocaine Screen Negative ng/mL (Negative) 08/08/22 18:35 U Marijuana (THC) Screen Negative ng/mL (Negative) 08/08/22 18:35 Ethyl Alcohol < 10 mg/dL (0-10) 08/08/22 17:18 Discharge Plan Discharge Patient Disposition: Home Clinical Impression: Seizure Condition: Stable Prescriptions: No Action alendronate [Fosamax] 70 mg tablet 70 mg PO .weekly Rx Instructions: on monday aspirin [Adult Aspirin Regimen] 81 mg tablet,delayed release (DR/EC) 81 mg PO DAILY coenzyme Q10 200 mg capsule 200 mg PO DAILY lisinopril 10 mg tablet 10 mg PO BID Qty: 180 3RF Hold Instructions: see pcp omeprazole 20 mg capsule,delayed release(DR/EC) 20 mg PO DAILY rosuvastatin 20 mg tablet 20 mg PO DAILY Qty: 90 3RF carvedilol 6.25 mg tablet 6.25 mg PO BID Qty: 180 3RF clopidogrel 75 mg tablet 75 mg PO DAILY Qty: 90 3RF furosemide 40 mg tablet 40 mg PO DAILY@0800 Qty: 90 3RF potassium chloride 10 mEq tablet extended release 10 meq PO DAILY Qty: 90 3RF Nystop 100,000 unit/gram powder 1 applic TOPICAL BID Ocuvite Adult 50 Plus 250 mg (90 mg-160 mg) Capsule 1 cap PO DAILY Fish Amox 1,500 mg PO DAILY hydrocortisone 2.5 % cream 1 applic topical TID Qty: 28 0RF Discharge Orders: Discharge ED (Routine); Ordered 08/08/22 Ordered By: Santiago Healy Referrals: Elena Lafleur FNP [Primary Care Provider] - Patient Instructions: Seizures Coding Level of Care Code ED Change Director for Chg Fwd Exam Comprehensive
[2022-08-08 17:09] LABS: ABG PCO2 39.8 mmHg (35-45); Arterial Blood Gas Hematocrit 41.2 % (37-47); Base Excess ABG -0.5 mmol/L (-2.0-2.0); Blood Gas Operator Identificat AMH; Blood Gas Sample Site Brachial, right; Blood Gas Sample Type Arterial; HCO3 ABG 24.4 mmol/L (22-26); Oxygen Device NC; PO2 ABG 97.2 mmHg (80.0-100.0)
[2022-08-08 17:28] LABS: Basophils # 0.1 10^3/uL (0.0-0.1); Basophils % 0.7 %; Eosinophils # 0.3 10^3/uL (0.0-0.8); Hematocrit 44.4 % (37.0-47.0); Hemoglobin 13.7 g/dL (11.5-15.3); Lymphocytes # 5.2 10^3/uL (0.8-4.8); Lymphocytes % 46.6 %; Mean Corpuscular HGB Conc 30.9 g/dL (30.0-36.0); Mean Corpuscular Volume 94.1 fl (81-99); Mean Platelet Volume 10.2 fL (7.4-10.4); Monocytes # 1.4 10^3/uL (0.2-0.9); Monocytes % 12.1 %; Neutrophils # 4.16 10^3/uL (1.8-7.7); Neutrophils % 37.2 %; Nucleated Red Blood Cells % 0 %; Platelet Count 290 10^3/cmm (130-400); Red Blood Count 4.72 10^6/uL (4.1-5.3); White Blood Count 11.2 10^3/uL (4.0-10.0)
[2022-08-08 17:52] LABS: Alanine Aminotransferase 17 U/L (0-33); Albumin Level 4.6 g/dL (3.5-5.2); Alkaline Phosphatase 73 U/L (35-105); Anion Gap 27.4 (5-19); Aspartate Amino Transferase 23 U/L (0-32); Blood Urea Nitrogen 16 mg/dL (8-23); Calcium 10.2 mg/dL (8.5-10.5); Carbon Dioxide 17 mmol/L (22-29); Chloride 99 mmol/L (98-107); Globulin 3.7 g/dL (1.3-4.6); Glomerular Filtration Rate 71.5 mL/min (90-130); Glucose 88 mg/dL (65-115); Magnesium 2.1 mg/dL (1.7-2.3); Osmolality Calculated 289 mOsm/kg (285-295); Potassium 4.4 mmol/L (3.5-5.1); Salicylate 0.4 mg/dL (3-10); Sodium 139 mmol/L (136-145); Total Bilirubin 0.3 mg/dL (0.15-1.2); Total Protein 8.3 g/dL (6.6-8.7)
[2022-08-08 17:53] LABS: Acetaminophen < 5.0 ug/mL (10-30); Alcohol Level < 10 mg/dL (0-10)
[2022-08-08 18:54] LABS: Add Urine Microscopic? NO; Charge for UA Resulting for Rev
[2022-08-08 18:59] LABS: Bilirubin Urine Neg (Negative); Blood Urine Neg (Negative); Glucose Urine UA Norm (Normal); Ketones Urine 1+ (Negative); Leukocyte Esterase Urine Negative (Negative); Nitrate Urine Negative (Negative); Protein Urine Neg (Negative); Specific Gravity, Urine 1.025 (1.005-1.030); Urine Appearance Clear (CLEAR); Urine Color Yellow (Yellow); Urobilinogen Urine Neg (Negative); pH Urine 5 (5-7)
[2022-08-08 19:05] LABS: Amphetamines Screen Urine Negative (Negative); Barbiturates Screen Urine Negative (Negative); Benzodiazepines Screen Urine Negative (Negative); Cocaine Screen Urine Negative (Negative); Opiate Screen Urine Negative (Negative); PCP Screen Urine Negative (Negative); THC Screen Urine Negative (Negative)
--- NOTE | 2022-08-09 10:10 | DCPLANNER ---
Addendum entered by Elinor Alfaro 10/12/22 08:08: Patient had a follow up appointment scheduled with neurology - patient did attend appointment. Addendum entered by Elinor Alfaro 08/10/22 10:22: Patient has a follow up appointment scheduled for Tuesday, September 20, 2022 at 10:[address] Kelly. Clinic will call patient with appointment information. Original Note: manager clinical had message to schedule a follow up appointment for patient with neurology. manager clinical sent patients information to the front office staff at neurology. Patients information will be printed and reviewed. Clinic will call patient with appointment information.
== END 2022-08-08 20:41 | disposition home or self-care (01) ==
PROVIDERS: Emergency Provider Emergency Medicine; PCP Nurse Practitioner Family
DX: R56.9 Unspecified convulsions (principal); Z79.82 Long term (current) use of aspirin; Z79.02 Long term (current) use of antithrombotics/antiplatelets; I50.40 Unspecified combined systolic (congestive) and diastolic (congestive) heart failure; I25.10 Atherosclerotic heart disease of native coronary artery without angina pectoris; E78.5 Hyperlipidemia, unspecified
CPT/HCPCS: 36600; 70450; 71045; 80053; 80306; 80307; 81003; 82803; 83735; 85025; 99285

== ENCOUNTER 2022-09-01 07:27 | Outpatient (CLI) | payer MEDICARE, MEDICAID, SELFPAY ==
--- NOTE | 2022-09-01 07:42 | FL_ITS ---
WS: [id number] FL barium enema w air* [id number] REASON FOR EXAM: DIVERTICULITIS OF INTESTINE FLUOROSCOPY TIME: 7min [id number] # OF SPOT FILMS: Multiple FINDINGS: Examination performed as double contrast study. Significantly redundant sigmoid colon. Extremely redundant right colon. Right colon completely opacified with filling of the appendix and de monstration of the ileocecal valve. Multiple diverticuli in the descending colon. Segment of diverticular disease in a redundant segment of the sigmoid colon with multiple diverticuli and hypertrophic mural changes of the colon. No findings of diverticulitis. No mucosal abnormality. No constricting extrinsic or intrinsic lesion of the colon. No polyp or intraluminal mass identified. FL/FL barium enema w air* [id number] IMPRESSION: Diverticulosis of the descending colon. Diverticular disease in the rectosigmoid colon.
== END 2022-09-01 07:28 | disposition home or self-care (01) ==
LOC: RAD 07:30
PROVIDERS: PCP Nurse Practitioner Family; Visit Provider Surgery
DX: K57.30 Diverticulosis of large intestine without perforation or abscess without bleeding (principal)
CPT/HCPCS: 74280

== ENCOUNTER → 2022-09-20 13:57 | Outpatient (BNVA) | payer MEDICARE, MEDICAID, SELFPAY | PROVIDERS: PCP Nurse Practitioner Family; Referring Provider Emergency Medicine; Visit Provider Specialist | DX: R56.9 Unspecified convulsions (principal); H34.239 Retinal artery branch occlusion, unspecified eye; Z95.810 Presence of automatic (implantable) cardiac defibrillator | CPT/HCPCS: 99205 ==

== ENCOUNTER → 2022-09-27 12:26 | Outpatient (BNVA) | payer MEDICARE, MEDICAID, SELFPAY | PROVIDERS: PCP Nurse Practitioner Family; Visit Provider Specialist | DX: R56.9 Unspecified convulsions (principal) | CPT/HCPCS: 95812; 95816 ==

== ENCOUNTER 2022-10-17 07:28 | Outpatient (CLI) | payer MEDICARE, MEDICAID, SELFPAY ==
--- NOTE | 2022-10-17 08:00 | USCV_ITS ---
Sammy Sherwood Age: 66 Gender: F : 1955 Exam Date: 10/17/2022 07:46 Ordering Phys: Jazzy Kelly MD Technologist: Adriel Tijerina [place]am [place] [facility] [place] Indication: carotid artery syndrome Risk Factors: Previous Vascular Surgery: Right Brachial BP: / Left Brachial BP: / Right Left Velocity (cm/s) Spectral Plaque Velocity (cm/s) Spectral Plaque Syst/Diast Broadening Syst/Diast Broadening 69.80/ 16.50 Prox CCA 84.00 / 21.50 76.10/ 17.10 Mid CCA 74.30 / 24.30 83.10/ 22.50 Distal CCA 61.10 / 17.30 53.40/ 14.40 Prox ICA 35.40 / 9.00 70.80/ 27.60 Mid ICA 55.50 / 20.80 52.70/ 15.00 Distal ICA 46.20 / 19.90 55.10 ECA 50.20 0.93 ICA/CCA 0.75 Antegrade Vertebral Antegrade 63.80/ 16.40 cm/s 42.30/ 13.60 cm/s Tri Subclavian Tri 66.70 76.90 CONCLUSIONS Right ICA stenosis <50%. Left ICA stenosis <50%. Normal antegrade Doppler flow noted in the right vertebral artery. Normal antegrade Doppler flow noted in the left vertebral artery. Sigifredo Jalloh MD (Electronically Signed) Final Date: 17 October 2022 11:37 S
== END 2022-10-17 07:29 | disposition home or self-care (01) ==
LOC: RAD 07:31
PROVIDERS: PCP Nurse Practitioner Family; Visit Provider Specialist
DX: G45.1 Carotid artery syndrome (hemispheric) (principal); E78.5 Hyperlipidemia, unspecified; I25.10 Atherosclerotic heart disease of native coronary artery without angina pectoris; I50.9 Heart failure, unspecified; I42.8 Other cardiomyopathies; I50.40 Unspecified combined systolic (congestive) and diastolic (congestive) heart failure
CPT/HCPCS: 93880

== ENCOUNTER → 2022-10-26 13:40 | Outpatient (BNVA) | payer MEDICARE, MEDICAID, SELFPAY | PROVIDERS: PCP Nurse Practitioner Family; Visit Provider Nurse Practitioner Family | DX: I11.0 Hypertensive heart disease with heart failure (principal); I50.40 Unspecified combined systolic (congestive) and diastolic (congestive) heart failure; I25.10 Atherosclerotic heart disease of native coronary artery without angina pectoris; E78.5 Hyperlipidemia, unspecified; Z79.82 Long term (current) use of aspirin | CPT/HCPCS: 36415; 80048; 80061; 83880; 99214 ==

== ENCOUNTER 2022-11-08 09:34 | Day surgery (SDC) | payer MEDICARE, MEDICAID, SELFPAY ==
[2022-11-07 12:26] VITALS: BMI 34.7
[2022-11-08] VITALS (11 sets, daily range): BP systolic 142–182; BP diastolic 80–104; PULSE 77–105; RESP 12–18; TEMP 36.1–36.4; O2SAT 94–100
[2022-11-08] MEDS: sodium chloride 0.9% 1,000 ML 30 ML IV (10:07)
--- NOTE | 2022-11-08 10:42 | P.ANESASSM_ITS ---
Pre-Anesthetic Assessment Height/Weight: Height 1.5 m Weight 78.018 kg Temp Pulse Resp BP Pulse Ox O2 Del Method 97.6 F 77 18 142/81 100 11/08/22 09:54 11/08/22 09:54 11/08/22 09:54 11/08/22 09:54 11/08/22 09:54 11/08/22 09:54 Preop Diagnosis: thickened endometrium, PMB Operation Date: 11/08/22 11:10 Proposed Procedures p Hysteroscopy, dilation and curettage wit Myosure [id number], R93.89(Not Applicable) - Maura Eduardo MD s Dilation And Curettage (D&C)(Not Applicable) - Maura Eduardo MD Familial anesthetic complications: none Was Beta Kb taken within 24 hours: Yes Was Clonidine taken within 24 hours: N/A Last intake: Intake Last Liquid Date 11/07/22 Last Liquid Time 23:45 Last Solid Date 11/07/22 Last Solid Time 20:00 Social No alcohol and No tobacco Exam alert, oriented x 3, clear to auscultation bilaterally and regular rate & rhythm Airway Submandibular: within normal limits Cervical ROM: within normal limits Mallampati: Class II Dentition: chipped CV/HEM Arrythmia, Coronary Artery Disease, Congestive Heart Failure and Hypertension Pacemaker/defib ?CONCLUSIONS ?This is a limited echocardiogram performed to assess LV systolic ?function. ?LV systolic function is severely reduced with EF of 25-30%. ?Compared to prior echocardiogram from 06/10/2021, LV systolic ?function has not improved significantly ?Bc Mitchell MD ?(Electronically Signed) ?Final Date:? ? ? 12 November 2021 GI Gastroesophageal Reflux Disease Metabolic Hyperlipidemia and Morbid Obesity [facility] [place] Osteoarthritis/DJD Neuropsych Seizure Anesthetic Plan ASA status: 3 Anesthesia: General Medications/Allergies Home Medications Medication Instructions Recorded Confirmed Last Taken Type omeprazole 20 mg capsule,delayed 20 mg PO DAILY 12/29/20 11/08/22 11/07/22 History release alendronate 70 mg tablet (Fosamax) 70 mg PO .weekly 05/18/21 11/08/22 10/31/22 History aspirin 81 mg tablet,delayed 81 mg PO DAILY 07/21/21 11/08/22 11/04/22 History release (Adult Aspirin Regimen) izrpxgel-lvf- 250 mg-dha 90 1 cap PO DAILY 06/02/22 11/08/22 11/07/22 History mg-epa 160 [id number]-sjdk-zeax capsule (Ocuvite Adult 50 Plus) nystatin 100,000 unit/gram topical 1 applic topical BID 06/02/22 11/08/22 Unknown History powder (Nystop) clopidogrel 75 mg tablet 75 mg PO DAILY #90 tabs 06/28/22 11/08/22 11/04/22 Rx furosemide 40 mg tablet 40 mg PO DAILY@0800 #90 tabs 06/28/22 11/08/22 11/07/22 Rx potassium chloride 10 mEq 10 meq PO DAILY #90 tabs 06/28/22 11/08/22 11/07/22 Rx tablet,extended release carvedilol 6.25 mg tablet 6.25 mg PO BID #180 tabs 10/26/22 11/08/22 11/08/22 Rx lisinopril 10 mg tablet 10 mg PO DAILY #180 tabs 10/26/22 11/08/22 11/07/22 Rx rosuvastatin 20 mg tablet 20 mg PO DAILY #90 tabs 10/26/22 11/08/22 11/07/22 Rx Allergies Allergy/AdvReac Type Severity Reaction Status Date / Time No Known Allergies Allergy Verified 11/08/22 09:49 Current Medications Generic Name Dose Route Start Last Admin Trade Name Freq PRN Reason Stop Dose Admin Sodium Chloride 1,000 mls @ 30 mls/hr 11/08/22 10:00 11/08/22 10:07 Sodium Chloride 0.9% IV 11/09/22 09:59 30 mls/hr .Q24H ASUNCION Administration PFSH Anesthesia Medical History (Updated 11/06/22 @ 21:44 by Maura Eduardo MD) Combined systolic and diastolic congestive heart failure, NYHA class 2 Coronary artery disease GERD (gastroesophageal reflux disease) Hyperlipidemia Hypertension Nonischemic cardiomyopathy Pacemaker Surgical History (Updated 11/06/22 @ 21:44 by Maura Eduardo MD) History of permanent cardiac pacemaker placement Family History Father Hypertension Heart disease Mother Hypercholesteremia Denies family history of Colon cancer Ovarian cancer Diabetes Breast cancer Uterine cancer Thyroid disease Stroke Social History Smoking and tobacco status: never smoked Alcohol intake: never Pets and animals: Yes Pets & animals: dog(s) Data Anesthesia Cardiac Studies: Echocardiogram 11/04/21 Echocardiogram Limited Views 06/07/21
--- NOTE | 2022-11-08 13:34 | W.PM.OPSUD ---
Surgery/Procedure H&P Update DATE OF PROCEDURE: November 08, 2022 DATE H&P PERFORMED: 11/04/22 H&P UPDATE INFORMATION: I have reviewed H&P completed within last 30 days, I have examined patient prior to procedure and No changes to prior documentation PREOP DIAGNOSIS: thickened endometrium, PMB PLANNED PROCEDURE: Operation Date: 11/08/22 11:10 Proposed Procedures p Hysteroscopy, dilation and curettage wit Myosure [id number], R93.89(Not Applicable) - Maura Eduardo MD s Dilation And Curettage (D&C)(Not Applicable) - Maura Eduardo MD Related Problem List Diagnoses (1) Postmenopausal bleeding: (2) Thickened endometrium:
[2022-11-08] MEDS: ceFAZolin 2,000 MG in sodium chloride 0.9% (plus) 50 ML 100 MG IV (14:09)
--- NOTE | 2022-11-08 14:58 | P.OP_ITS ---
Operative Report Date of procedure: November 08, 2022 Pre-op diagnosis: Preop Diagnosis thickened endometrium, PMB Post-op diagnosis: same Post-op findings: 7 week sized uterus with excessive tissue Procedure done: hysteroscopy, D&C with myosure Specimens removed/disposition: endometrial curettings to pathology Surgeon: Maura Eduardo Anesthesia: General Estimated blood loss (mL): 50 IV fluids (mL): 850 Complications: none Findings: 7 week sized uterus with excessive tissue Condition: stable Disposition: PACU Brief History: hysteroscopy deficit: 700 Procedure: The patient was taken to the operating room where monitored anesthesia was administered and to be adequate. She was prepped and draped in the normal sterile fashion in the dorsal lithotomy position in Jluis stirps. A weighted speculum was placed into the vagina and the anterior lip of the cervix grasped with a single-tooth tenaculum. The uterus was sounded to 7 cm. The cervix was dilated to 16 Pakistani. The hysteroscope was advanced into the endometrial cavity. There was excessive tissue visualized. The MyoSure device was activated and the tissue was removed. Pictures were taken pre and post procedure. All instruments were removed. The patient tolerated the procedure well. Sponge lap and needle counts were correct x3. She was taken to the recovery room in stable condition.
--- NOTE | 2022-11-08 15:03 | PM.DCS ---
Discharge Providers Date of Admission: 11/08/22 Date of Discharge: November 08, 2022 Attending Provider at Discharge: Maura Eduardo MD Primary Care Provider: ESTHER Blakely Diagnoses at Discharge Discharge Diagnosis (1) Postmenopausal bleeding: Status: Acute (2) Thickened endometrium: Status: Acute Hospital Course Hospital Course The patient was admitted for surgery. she did fine postoperatively and was ready for discharge. Discharge Data Studies Completed and Pending Pending at discharge Category Date Time Status ES surgery / GI images Routine Exams 11/08/22 13:47 Ordered Pathology: Surgical [PTH] Routine Pth 11/08/22 14:51 Ordered Vitals Last Vital Signs Temp 97.6 F 11/08/22 09:54 Pulse 77 11/08/22 09:54 Resp 18 11/08/22 09:54 BP 142/81 11/08/22 09:54 Pulse Ox 100 11/08/22 09:54 O2 Del Method 11/08/22 09:54 Discharge Plan Discharge Condition: Stable Prescriptions: Continued alendronate [Fosamax] 70 mg tablet 70 mg PO .weekly Rx Instructions: on monday aspirin [Adult Aspirin Regimen] 81 mg tablet,delayed release (DR/EC) 81 mg PO DAILY omeprazole 20 mg capsule,delayed release(DR/EC) 20 mg PO DAILY lisinopril 10 mg tablet 10 mg PO DAILY Qty: 180 3RF Hold Instructions: see pcp carvedilol 6.25 mg tablet 6.25 mg PO BID Qty: 180 3RF rosuvastatin 20 mg tablet 20 mg PO DAILY Qty: 90 3RF clopidogrel 75 mg tablet 75 mg PO DAILY Qty: 90 3RF furosemide 40 mg tablet 40 mg PO DAILY@0800 Qty: 90 3RF potassium chloride 10 mEq tablet extended release 10 meq PO DAILY Qty: 90 3RF nystatin [Nystop] 100,000 unit/gram powder 1 applic TOPICAL BID Ocuvite Adult 50 Plus 250 mg (90 mg-160 mg) Capsule 1 cap PO DAILY Discharge Orders: Discharge Order (Routine); Ordered 11/08/22 Ordered By: Maura Eduardo Discharge Attestations Time Spent in Discharge Care*: less than 30 min Quality Metrics Clinical Quality Measures [ No reported AMI, CVA or VTE this stay] Coding Level of Care Code Acute Code for Chg Fwd Diagnoses Postmenopausal bleeding N95.0 Thickened endometrium R93.89
--- NOTE | 2022-11-08 16:23 | ANE.PACU2 ---
Inpatient post-anesthesia follow up: Airway intact: Yes Vital signs: Temperature 97 F Pulse Rate 80 Respiratory Rate 16 Blood Pressure 161/90 Pulse Oximetry 96 Oxygen Delivery Me thod Room Air Oxygen Flow Rate 2 Fraction of Inspir ed Oxygen Hydration adequate: Yes Nausea and vomiting: No Pain level: 2 Mental status: Baseline
== END 2022-11-08 16:35 | disposition home or self-care (01) ==
PROVIDERS: PCP Nurse Practitioner Family; Visit Provider Obstetrics & Gynecology
PROC: 0UDB8ZZ Extraction of Endometrium, Via Natural or Artificial Opening Endoscopic (ICD-10-PCS; CPT 58558; principal; 2022-11-08 11:00)
PROC: (CPT 58120; 2022-11-08 11:00)
DX: R93.89 Abnormal findings on diagnostic imaging of other specified body structures (principal); N95.0 Postmenopausal bleeding; I25.10 Atherosclerotic heart disease of native coronary artery without angina pectoris; I11.0 Hypertensive heart disease with heart failure; I50.40 Unspecified combined systolic (congestive) and diastolic (congestive) heart failure; K21.9 Gastro-esophageal reflux disease without esophagitis; E78.5 Hyperlipidemia, unspecified; E66.01 Morbid (severe) obesity due to excess calories; Z68.34 Body mass index [BMI] 34.0-34.9, adult; Z79.82 Long term (current) use of aspirin; Z95.0 Presence of cardiac pacemaker; I42.8 Other cardiomyopathies
CPT/HCPCS: 58558; 88305; J0690; J1100; J1885; J2405; J2704; J3010; J7030

== ENCOUNTER → 2022-12-01 13:30 | Outpatient (BNVA) | payer MEDICARE, MEDICAID, SELFPAY | PROVIDERS: PCP Nurse Practitioner Family; Visit Provider Obstetrics & Gynecology | DX: Z01.419 Encounter for gynecological examination (general) (routine) without abnormal findings (principal) | CPT/HCPCS: 87624 ==

== ENCOUNTER 2023-02-20 13:48 | Outpatient (CLI) | payer MEDICARE, MEDICAID, SELFPAY ==
--- NOTE | 2023-02-20 13:56 | XR_ITS ---
WS: [id number] SCREENING DEXA SCAN [employer] CLINICAL INFORMATION: POSTMENOPAUSAL COMPARISON: April 22, 2021 FINDINGS: The L1-L4 bone mineral density measures 0.920 g/cm2. This corresponds to a T score score of -2.2 and Z score of -1.1. Left femoral neck bone mineral density measures 0.826 g/cm2. This corresponds to a T score of -1.4 an d Z score of -0.5. Right femoral neck bone mineral density measures 0.918 g/cm2. This corresponds to a T score -0.7of an d Z score of 0.3. Mean femoral neck bone mineral density measures 0.872 g/cm2. This corresponds to a T score of -1.1 an d Z score of -0.1. XR/XR DEXA axial skeleton* [id number] IMPRESSION: Osteopenia lumbar spine. Osteopenia femoral necks at the lower end of the range . Patient's FRAX calculated 10 year probability for major osteoporotic fracture i s 15.9 % and osteoporotic hip fracture is 2.4%. Bone mineral density in the lumbar spine has increased 5.1% since 2020 Bone mineral density femoral necks has increased 5.2% since 2020
== END 2023-02-20 13:49 | disposition home or self-care (01) ==
PROVIDERS: PCP Nurse Practitioner Family; Visit Provider Nurse Practitioner Family
DX: Z78.0 Asymptomatic menopausal state (principal); M85.88 Other specified disorders of bone density and structure, other site; M85.862 Other specified disorders of bone density and structure, left lower leg; M85.861 Other specified disorders of bone density and structure, right lower leg
CPT/HCPCS: 77080

== ENCOUNTER → 2023-04-12 15:41 | Outpatient (BNVA) | payer MEDICARE, MEDICAID, SELFPAY | PROVIDERS: PCP Nurse Practitioner Family; Referring Provider Nurse Practitioner Family; Visit Provider Dermatology | DX: L56.8 Other specified acute skin changes due to ultraviolet radiation (principal); L81.4 Other melanin hyperpigmentation; D22.5 Melanocytic nevi of trunk; L82.1 Other seborrheic keratosis; L57.8 Other skin changes due to chronic exposure to nonionizing radiation | CPT/HCPCS: 17000; 99203 ==

== ENCOUNTER → 2023-04-26 16:40 | Outpatient (BNVA) | payer MEDICARE, MEDICAID, SELFPAY | PROVIDERS: PCP Nurse Practitioner Family; Visit Provider Internal Medicine | DX: I10 Essential (primary) hypertension (principal); I25.10 Atherosclerotic heart disease of native coronary artery without angina pectoris; R07.9 Chest pain, unspecified; R06.02 Shortness of breath | CPT/HCPCS: 80048; 83880; 99214 ==

== ENCOUNTER 2023-05-10 12:57 | Outpatient (CLI) | payer MEDICARE, MEDICAID, SELFPAY ==
--- NOTE | 2023-05-10 13:00 | USCV_ITS ---
Sammy Sherwood Age: 67 Gender: F : 1955 Exam Date: 05/10/2023 13:09 Ordering Phys: Bc Mitchell MD Technologist: NICOLE Exam Location: [facility] – [place] Indication: ASSESS LV FUNCTION BP: 110 / 58 HR: 74 Rhythm: PACED Technical Quality: Adequate MEASUREMENTS (Male / Female) Normal Values 2D ECHO LV Diastolic Diameter PLAX 3.0 cm 4.2 - 5.9 / 3.9 - 5.3 cm LV Systolic Diameter PLAX 2.3 cm LV Chamber Size 2.5 cm IVS Diastolic Thickness 1.1 cm 0.6 - 1.0 / 0.6 - 0.9 cm IVS Systolic Thickness 0.9 cm LVPW Diastolic Thickness 1.1 cm 0.6 - 1.0 / 0.6 - 0.9 cm LVPW Systolic Thickness 1.2 cm RV Chamber Size 3.0 cm LVOT Diameter 2.1 cm LV Ejection Fraction 2D Teich 34.5 % LV Ejection Fraction MOD 2C 83.3 % LV Ejection Fraction 2C AL 83.1 % LA Diameter 3.7 cm LA Width 2.7 cm LA Height 4.1 cm RA Width 2.4 cm RA Height 3.7 cm Aorta at Sinotubular Diameter 2.4 cm IVC Diameter 1.9 cm M-MODE Aortic Annulus Diameter 3.3 cm LA Ao Ratio MM 1.1 MV E Point Septal Separation 0.6 cm DOPPLER AV Peak Velocity 135.0 cm/s LVOT Peak Velocity 88.0 cm/s AV Area Cont Eq vti 2.4 cm squared AV Area Cont Eq pk 2.2 cm squared MV Area PHT 5.5 cm squared Mitral E to A Ratio 0.8 MV E' Velocity 43.0 cm/s Mitral E to MV E' Ratio 7.1 Mitral E to LV E' Lateral Ratio 5.6 Mitral E to LV E' Septal Ratio 10.1 TR Peak Velocity 230.3 cm/s TR Peak Gradient 21.2 mmHg TR Mean Velocity 171.3 cm/s TR Mean Gradient 13.4 mmHg TR Velocity Time Integral 63.1 cm TV Peak E Velocity 64.0 cm/s Right Atrial Pressure 3.0 mmHg Pulmonary Artery Systolic Pressu 24.2 mmHg PV Peak Velocity 75.0 cm/s RV Acceleration Time 0.1 s RV Ejection Time 0.3 s RV AcT/ET 0.4 FINDINGS Left Ventricle Left ventricle is normal in size. Grossly LV systolic function is mildly reduced. Accurate assessment of regional wall motion abnormalities is not possible because of limited visualization. Grade 1 diastolic dysfunction. Right Ventricle Grossly RV function is reduced.. Pacemaker lead is seen. Right Atrium Normal in size. Pacemaker lead is seen. Left Atrium Normal in size Mitral Valve Moderate mitral annular calcification. Aortic Valve Aortic valve is thickened. No significant aortic stenosis or regurgitation seen. Tricuspid Valve Mild tricuspid regurgitation. Pulmonary artery systolic pressure is normal. Pulmonic Valve Not well-visualized Pericardium Normal Aorta Normal in size IVC Not well-visualized CONCLUSIONS Technically limited quality echocardiogram because of poor ultrasonic windows. Grossly LV systolic function is mildly reduced. Accurate assessment of regional wall motion abnormalities is not possible because of limited visualization Grade 1 diastolic dysfunction. Grossly RV function is reduced. Mild tricuspid regurgitation Compared to prior echocardiogram from 10/2021, LV systolic function has significantly improved and is only mildly reduced now Bc Mitchell MD (Electronically Signed) Final Date: 14 May 2023 21:03 S
== END 2023-05-10 12:58 | disposition home or self-care (01) ==
PROVIDERS: PCP Nurse Practitioner Family; Visit Provider Internal Medicine
DX: R06.02 Shortness of breath (principal); R07.9 Chest pain, unspecified; I07.1 Rheumatic tricuspid insufficiency
CPT/HCPCS: 93306

== ENCOUNTER 2023-06-12 12:06 | Outpatient (CLI) | payer MEDICARE, MEDICAID, SELFPAY ==
--- NOTE | 2023-06-12 12:15 | MM_ITS ---
WS: [id number] BILATERAL 3D TOMOSYNTHESIS DIGITAL SCREENING MAMMOGRAPHY WITH CAD CLINICAL INFORMATION: SCREENING HISTORY: Screening mammogram. No current complaints. COMPARISON: 2021 TECHNIQUE: Bilateral CC and MLO views. FINDINGS: Scattered fibroglandular densities bilaterally. No suspicious focal mass, asymmetry, calcifications, or architectural distortion. No evidence of malignancy. Vascular calcification. Punctate and lucent c entered calcifications. IMPRESSION: MM/[place] [id number] BI-RADS: 2-Benign FOLLOW UP: 1 Year Follow-up Recommend return to annual screening mammography.
== END 2023-06-12 12:07 | disposition home or self-care (01) ==
LOC: RAD 12:06
PROVIDERS: PCP Nurse Practitioner Family; Visit Provider Nurse Practitioner Family
DX: Z12.31 Encounter for screening mammogram for malignant neoplasm of breast (principal)
CPT/HCPCS: 77063; 77067

== ENCOUNTER → 2023-10-26 15:01 | Outpatient (BNVA) | payer MEDICARE, MEDICAID, SELFPAY | PROVIDERS: PCP Nurse Practitioner Family; Visit Provider Internal Medicine | DX: I11.0 Hypertensive heart disease with heart failure (principal); I50.40 Unspecified combined systolic (congestive) and diastolic (congestive) heart failure | CPT/HCPCS: 36415; 80048; 83880; 99214 ==

== ENCOUNTER → 2023-12-19 15:22 | Outpatient (BNVA) | payer MEDICARE, MEDICAID, SELFPAY | PROVIDERS: PCP Nurse Practitioner Family; Visit Provider Nurse Practitioner Women's Health | DX: Z12.4 Encounter for screening for malignant neoplasm of cervix (principal) | CPT/HCPCS: 87624 ==

== ENCOUNTER → 2023-12-21 14:51 | Outpatient (BNVA) | payer MEDICARE, MEDICAID, SELFPAY | PROVIDERS: PCP Nurse Practitioner Family; Visit Provider Specialist | DX: R20.2 Paresthesia of skin (principal); R20.0 Anesthesia of skin | CPT/HCPCS: 95909; 95910 ==

== ENCOUNTER 2024-01-16 10:46 | Outpatient (RCR) | payer MEDICARE, MEDICAID, SELFPAY | END 2024-02-11 23:59 | disposition home or self-care (01) | LOC: CR 10:46 | PROVIDERS: PCP Nurse Practitioner Family; Referring Provider Internal Medicine; Visit Provider Internal Medicine | DX: I50.40 Unspecified combined systolic (congestive) and diastolic (congestive) heart failure (principal) | CPT/HCPCS: 93798 ==

== ENCOUNTER 2024-02-12 14:27 | Outpatient (RCR) | payer MEDICARE, MEDICAID, SELFPAY | END 2024-03-13 23:59 | disposition home or self-care (01) | LOC: CR 14:27 | PROVIDERS: PCP Nurse Practitioner Family; Referring Provider Internal Medicine; Visit Provider Internal Medicine | DX: I50.40 Unspecified combined systolic (congestive) and diastolic (congestive) heart failure (principal) | CPT/HCPCS: 93798 ==

== ENCOUNTER 2024-03-14 15:31 | Outpatient (RCR) | payer MEDICARE, MEDICAID, SELFPAY | END 2024-04-13 18:00 | disposition home or self-care (01) | LOC: CR 15:31 | PROVIDERS: PCP Nurse Practitioner Family; Referring Provider Internal Medicine; Visit Provider Internal Medicine | DX: I50.40 Unspecified combined systolic (congestive) and diastolic (congestive) heart failure (principal) | CPT/HCPCS: 93798 ==

== ENCOUNTER → 2024-04-11 13:45 | Outpatient (BNVA) | payer MEDICARE, MEDICAID, SELFPAY | PROVIDERS: PCP Nurse Practitioner Family; Visit Provider Nurse Practitioner Family | DX: L56.8 Other specified acute skin changes due to ultraviolet radiation (principal); L81.4 Other melanin hyperpigmentation; D22.5 Melanocytic nevi of trunk; L82.1 Other seborrheic keratosis | CPT/HCPCS: 17000; 99213 ==

== ENCOUNTER 2024-04-14 08:02 | Outpatient (RCR) | payer MEDICARE, MEDICAID, SELFPAY | END 2024-05-13 23:59 | disposition home or self-care (01) | LOC: CR 08:02 | PROVIDERS: PCP Nurse Practitioner Family; Referring Provider Internal Medicine; Visit Provider Internal Medicine | DX: I50.40 Unspecified combined systolic (congestive) and diastolic (congestive) heart failure (principal) | CPT/HCPCS: 93798 ==

== ENCOUNTER → 2024-05-02 14:43 | Outpatient (BNVA) | payer MEDICARE, MEDICAID, SELFPAY | PROVIDERS: PCP Nurse Practitioner Family; Visit Provider Internal Medicine | DX: I25.10 Atherosclerotic heart disease of native coronary artery without angina pectoris (principal); E78.5 Hyperlipidemia, unspecified; I50.9 Heart failure, unspecified; Z96.652 Presence of left artificial knee joint | CPT/HCPCS: 99214 ==

== ENCOUNTER → 2024-11-11 14:03 | Outpatient (BNVA) | payer MEDICARE, MEDICAID, SELFPAY | PROVIDERS: PCP Nurse Practitioner Family; Visit Provider Internal Medicine | DX: I25.10 Atherosclerotic heart disease of native coronary artery without angina pectoris (principal); E78.5 Hyperlipidemia, unspecified; I50.9 Heart failure, unspecified; Z96.652 Presence of left artificial knee joint | CPT/HCPCS: 99214 ==

== ENCOUNTER → 2024-12-30 08:59 | Outpatient (BNVA) | payer OTHER, MEDICAID, SELFPAY | PROVIDERS: PCP Nurse Practitioner Family; Visit Provider Nurse Practitioner Family | DX: I25.118 Atherosclerotic heart disease of native coronary artery with other forms of angina pectoris (principal); I11.0 Hypertensive heart disease with heart failure; I50.40 Unspecified combined systolic (congestive) and diastolic (congestive) heart failure; I42.8 Other cardiomyopathies; E78.5 Hyperlipidemia, unspecified; Z96.652 Presence of left artificial knee joint | CPT/HCPCS: 36415; 80053; 83880; 85025; 99214 ==

== ENCOUNTER → 2025-01-17 08:00 | Outpatient (BNVA) | payer OTHER, MEDICAID, SELFPAY | PROVIDERS: PCP Nurse Practitioner Family; Visit Provider Nurse Practitioner Family | DX: I25.118 Atherosclerotic heart disease of native coronary artery with other forms of angina pectoris (principal); I11.0 Hypertensive heart disease with heart failure; I50.40 Unspecified combined systolic (congestive) and diastolic (congestive) heart failure; E78.5 Hyperlipidemia, unspecified; K57.92 Diverticulitis of intestine, part unspecified, without perforation or abscess without bleeding; Z79.02 Long term (current) use of antithrombotics/antiplatelets; Z79.82 Long term (current) use of aspirin; Z95.810 Presence of automatic (implantable) cardiac defibrillator | CPT/HCPCS: 99214 ==

== ENCOUNTER 2025-01-22 08:46 | Outpatient (CLI) | payer OTHER, MEDICAID, SELFPAY ==
--- NOTE | 2025-01-22 08:55 | MM_ITS ---
WS: [id number] BILATERAL SCREENING DIGITAL TOMOSYNTHESIS MAMMOGRAM WITH CAD HISTORY: SCREENING COMPARISON: 06/12/2023, 06/08/2022 Bilateral CC and MLO views with tomosynthesis and synthetic mammography submitted. Computer aided detection analyzed. Breast composition: There are scattered areas of fibroglandular density. No suspicious masses, microcalcifications or architectural distortion. Breast arterial calcifications in each breast. MM/MM scr BI tomosynthesis [id number] IMPRESSION: BI-RADS: 2 - Benign. FOLLOW UP: 1 Year Follow-up
== END 2025-01-22 08:47 | disposition home or self-care (01) ==
LOC: RAD 08:47
PROVIDERS: PCP Nurse Practitioner Family; Visit Provider Nurse Practitioner Family
DX: Z12.31 Encounter for screening mammogram for malignant neoplasm of breast (principal); R92.323 Mammographic fibroglandular density, bilateral breasts; R92.1 Mammographic calcification found on diagnostic imaging of breast
CPT/HCPCS: 77063; 77067

== ENCOUNTER 2025-02-05 13:17 | Outpatient (CLI) | payer OTHER, MEDICAID, SELFPAY ==
--- NOTE | 2025-02-05 13:30 | USCV_ITS ---
Sammy Sherwood Age: 69 Gender: F : 1955 Exam Date: 02/05/2025 13:46 Ordering Phys: Amy Galeas NP Technologist: Exam Location: [facility] – [place] Indication: cp sob BP: 105 / 60 HR: 91 Rhythm: Sinus Technical Quality: Adequate MEASUREMENTS (Male / Female) Normal Values 2D ECHO LV Diastolic Diameter PLAX 3.1 cm 4.2 - 5.9 / 3.9 - 5.3 cm IVS Diastolic Thickness 1.2 cm 0.6 - 1.0 / 0.6 - 0.9 cm IVS Systolic Thickness 1.4 cm LVPW Diastolic Thickness 1.1 cm 0.6 - 1.0 / 0.6 - 0.9 cm LVPW Systolic Thickness 1.7 cm LVOT Diameter 2.0 cm LV Ejection Fraction 2D Teich 63.3 % LV Ejection Fraction MOD 4C 66.4 % LV Ejection Fraction MOD 2C 68.6 % LV Ejection Fraction 2C AL 67.4 % LA Diameter 3.8 cm RA Systolic Volume 4C AL 21.7 ml RA Systolic Volume 4C MOD 21.7 ml Aorta at Sinotubular Diameter 2.8 cm IVC Diameter 1.6 cm M-MODE LA Ao Ratio MM 1.3 AV Cusp Separation MM 2.1 cm DOPPLER AV Peak Velocity 130.0 cm/s LVOT Peak Velocity 87.0 cm/s AV Area Cont Eq vti 2.2 cm squared AV Area Cont Eq pk 2.2 cm squared MV Peak Velocity 119.0 cm/s MV Area PHT 3.7 cm squared Mitral E to A Ratio 0.8 TV Peak Velocity 256.0 cm/s TR Peak Velocity 265.0 cm/s TR Peak Gradient 28.1 mmHg TV Peak E Velocity 81.0 cm/s PV Peak Velocity 107.0 cm/s FINDINGS Left Ventricle Left ventricle is normal in size. LV systolic function is normal with EF of 55-60%. No regional wall motion abnormalities are seen. Grade 1 diastolic dysfunction Right Ventricle Normal in size and function Right Atrium Normal in size. Echogenic structure seen in right atrium close to pacemaker lead. Cannot rule out artifact Left Atrium Normal in size Mitral Valve Moderate mitral annular calcification. Mild mitral regurgitation Aortic Valve Aortic valve is thickened. No significant stenosis or regurgitation. Tricuspid Valve Mild tricuspid regurgitation. Pulmonary artery systolic pressure is normal. Pulmonic Valve Not well visualized Pericardium Normal Aorta Normal in size IVC Appears to be normal CONCLUSIONS LV systolic function is normal with EF of 55-60% Grade 1 diastolic dysfunction. Echogenic structure seen in right atrium close pacemaker lead. Cannot rule out artifact Mild mitral regurgitation Mild tricuspid regurgitation Bc Mitchell MD (Electronically Signed) Final Date: 21 February 2025 10:48 S
== END 2025-02-05 13:18 | disposition home or self-care (01) ==
PROVIDERS: PCP Nurse Practitioner Family; Visit Provider Nurse Practitioner Family
DX: I42.8 Other cardiomyopathies (principal); R93.1 Abnormal findings on diagnostic imaging of heart and coronary circulation; I34.81 Nonrheumatic mitral (valve) annulus calcification; I34.0 Nonrheumatic mitral (valve) insufficiency; I35.8 Other nonrheumatic aortic valve disorders; I07.1 Rheumatic tricuspid insufficiency
CPT/HCPCS: 93306